=== PATIENT | male | born 1955 | race Caucasian/White ===

== ENCOUNTER 2018-06-21 09:59 | Inpatient (IN) ==
--- NOTE | 2018-06-21 12:34 | Pulmonology History & Physical ---
<Devyn Morton W - Last Filed: 06/21/18 14:27> Date of Encounter: 06/21/18 History of Present Illness HPI: Mr. Lubin is a 63 year old male Medications and Allergies Acetaminophen 650 mg PO Q6HR PRN 06/21/18 [History] Arformoterol Tartrate [Brovana] 15 mcg IH QSHIFT 06/21/18 [History] Ascorbate Calcium [Vitamin C] 500 mg PO DAILY 06/21/18 [History] Budesonide [Pulmicort] 4 ml IH QSHIFT 06/21/18 [History] Carvedilol 3.125 mg PO BID 06/21/18 [History] Citalopram Hydrobromide [Celexa] 20 mg PO DAILY 06/21/18 [History] Enoxaparin [Lovenox] 40 mg SQ DAILY 06/21/18 [History] Ferrous Sulfate Oral Soln 6.8 ml PO DAILY 06/21/18 [History] Insulin LISPRO [Admelog Solostar] 2 - 10 unit SQ Q6H 06/21/18 [History] Ipratropium/Albuterol Sulfate [Iprat-Albut 0.5-3(2.5) mg/3 ml] 3 ml IH Q6HR 06/21/18 [History] Lisinopril [Zestril] 5 mg PO DAILY 06/21/18 [History] Metformin HCl 500 mg PO BID 06/21/18 [History] Potassium Chloride [K-Tab ER] 20 meq PO DAILY 06/21/18 [History] Ranitidine Oral Soln [Zantac] 10 ml PO BID 06/21/18 [History] Soft Lens Saline Solution 0.9% 1 appl TP QSHIFT 06/21/18 [History] Zinc Sulfate 220 mg PO DAILY 06/21/18 [History] amLODIPine [Norvasc] 5 mg PO DAILY 06/21/18 [History] clonazePAM [Clonazepam] 1 mg PO BID 06/21/18 [History] predniSONE [PredniSONE] See Taper PO AD 06/21/18 [History] Allergy/AdvReac Type Severity Reaction Status Date / Time No Known Allergies Allergy Verified 06/21/18 07:48 All Systems: The remainder of the systems were reviewed and are negative Physical Examination Vital Signs: Vital Signs, Last 4 Hours Temp Pulse Pulse Ox 06/21/18 12:24 99.5 F 105 92 Results - Laboratory Findings ABG ABG pH 7.28 pH Units (7.32-7.45) L 06/21/18 13:53 ABG pCO2 81 mmHg (35-45) H* 06/21/18 13:53 ABG pO2 70 mmHg (85-104) L 06/21/18 13:53 ABG O2 Saturation 90 % (95-98) L 06/21/18 13:53 Abnormal lab findings: Abnormal lab results ABG pH 7.28 pH Units (7.32-7.45) L 06/21/18 13:53 ABG pCO2 81 mmHg (35-45) H* 06/21/18 13:53 ABG pO2 70 mmHg (85-104) L 06/21/18 13:53 ABG HCO3 38 mEq/L (21-27) H 06/21/18 13:53 ABG Total CO2 41 mEq/L (20-26) H 06/21/18 13:53 ABG O2 Saturation 90 % (95-98) L 06/21/18 13:53 ABG Base Excess 8 mEq/L (-2 to 3) H 06/21/18 13:53 - Attending Attestation I examined this patient and my medical decision-making was reviewed with the Resident Physician. I agree with the documented findings, disposition and treatment plan as described except to the extent set forth below. We independently had ayos-[id number] contact with the patient I spent 45min of Critical Care time with this patient. It involved decision making of high complexity to assess, manipulate, and support vital organ system failure and/or to prevent further life threatening deterioration of the patient's condition. The time involved in the performance of separately reportable procedures was not counted toward critical care time. Patient seen and examined at bedside Labs, radiology, chart personally reviewed. CONSOLIDATOR: Patient is awake and alert able to follow all commands no focal deficits Pulm: Acute on chronic hypoxic hypercapnic respiratory failure likely secondary to pneumonia and I suspect aspiration he also has steroid dependent COPD status post tracheostomy within the last month ABG shows worsening respiratory acidosis and ventilator was changed to increase minute ventilation I:E ratio remains acceptable of also increase PEEP and decreased his FiO2 peak and plateau pressures are acceptable at this time glucocorticoids of been administered continue bronchodilator therapy and antibiotics Cards: Hypotension likely secondary to distributive shock from sepsis versus adrenal crisis. Central venous catheter was inserted and vasopressors have been initiated for goal map around 65 he is on norepinephrine at the moment. Echocardiogram pending troponin within normal limits EKG shows sinus tachycardia without ischemic changes GI: GI prophylaxis given Nutrition: Nothing by mouth for now Renal: UOP Monitored, Cont to Trend sCr and monitor Electrolytes. ID: Speck to pneumonia cultures have been obtained antibiotics have been initiated for hospital associated pathogens de-escalate based upon clinical course and cultures Heme/Onc: DVT prophylaxis given Endo: Glucose Monitored Integ/MSK: Skin Care per routine ICU Nursing Protocol to prevent ulcers. Lines: All lines examined without evidence of infection : Dispo: Remain in ICU for critical illness CODE: Full code daughter was updated at bedside who is his next of kin/POA <Nighat Goldstein M - Last Filed: 06/21/18 16:04> Date of Encounter: 06/21/18 Time of Encounter: 12:20 Assessment and Plan (1) Acute and chronic respiratory failure Current visit: No Status: Acute Patient has severe COPD and is trach and vent dependent Had trach replaced with smaller size yesterday Acute on chronic respiratory failure likely due to pneumonia ABG with pH 7.28, pCO2 81, pO2 70, bicarb 38. Vent settings adjusted to PEEP 12, increased I:E ratio, decrease FiO2 Patient is on chronic steroids and will start Solu-Cortef 100mg TID Continue IV vancomycin and IV zosyn Scheduled duonebs Blood cultures, sputum culture, strep pneumonia and legionella Ag, respiratory i nfectious panel pending Qualifiers: Respiratory failure complication: hypoxia and hypercapnia Qualified Code(s): J96.21 - Acute and chronic respiratory failure with hypoxia; J96.22 - Acute and chronic respiratory failure with hypercapnia (2) Severe sepsis Current visit: Yes Status: Acute Tachycardia, tachypnea, leukocytosis Lactate normal, LFTs normal Sepsis likely secondary to pneumonia, unspecified organism Arrived to [facility] from [place] with hypotension, not fluid responsive Hypotension likely from severe sepsis versus possible adrenal crisis Right IJV central venous access obtained, levophed started. Keep MAP >65 Check TSH and cortisol Check blood cultures, sputum culture, respiratory infectious panel Continue with IV vancomycin and IV zosyn (3) Right lower lobe pneumonia Current visit: No Status: Acute CXR with right basilar airspace opacity and small right pleural effusion Sputum culture, RIP, urine Ag pending Daily ABG and adjust vent settings IV vncomycin and zosyn Qualifiers: Pneumonia type: due to unspecified organism Qualified Code(s): J18.1 - Lobar pneumonia, unspecified organism (4) COPD (chronic obstructive pulmonary disease) Current visit: Yes Status: Acute Severe COPD with chronic trach and vent dependence IV steroids and scheduled duonebs as above Qualifiers: COPD type: COPD with acute exacerbation Qualified Code(s): J44.1 - Chronic obstructive pulmonary disease with (acute) exacerbation (5) Elevated troponin Current visit: Yes Status: Acute Initial troponin <0.03 and repeat 0.06 EKG obtained and shows sinus tachycardia with frequent PVCs. SD interval 186, QRS 94, QT 303ms. No ST elevation or depression. Poor R wave progression Likely due to demand ischemia from acute respiratory failure and severe sepsis Trend troponin and check echocardiogram (6) Diabetes mellitus Current visit: Yes Status: Acute Patient is on metformin on home medications Will monitor glucose q6h and SSI NPO. Patient has history of dysphagia and required NG tube prior to admission. Received Pulmocare four times a day through NG tube Qualifiers: Diabetes mellitus type: type 2 Diabetes mellitus penitentiary insulin use: without penitentiary use Qualified Code(s): E11.9 - Type 2 diabetes mellitus without complications (7) Goals of care, counseling/discussion Current visit: Yes Status: Acute Discussed with patient and daughter at bedside. Patient is Full Code. Signed consent for central line placement and vasopressor support. (8) Hypertension Current visit: Yes Status: Acute Hold home medications as patient is hypotensive and NPO Qualifiers: Hypertension type: essential hypertension Qualified Code(s): I10 - Essential (primary) hypertension (9) DVT prophylaxis Current visit: Yes Status: Acute SQ heparin History of Present Illness Chief complaint: shortness of breath HPI: Mr. Lubin is a 63 year old male with past medical history including COPD, diabetes mellitus type 2, hypertension. Patient has chronic respiratory failure and has had multiple intubations in the past for COPD exacerbation. He recently received a tracheostomy approximately 2 months ago at [facility] and [place]. He is ventilator dependent. On chronic steroids. Recently finished azithromycin course. [facility]. Yesterday, the patient's tracheostomy tube was replaced with a smaller size. Patient's nasogastric tube, which was initially placed for dysphagia, was also removed as he had been pulling at it. Previously he was receiving Pulmocare 4 times a day. He had a couple episodes of nonbloody vomiting during the NG removal. Possible aspiration.History of was obtained from prior ED records as well as from the patient and his daughter at bedside. The patient states he was feeling more short of breath yesterday evening after the NG tube was removed. He denies cough or increased sputum production. He also complains of intermittent chest tightness with breathing. Since the NG tube removal, the patient complains of intermittent abdominal pain. He is still passing flatus. No change in bowel movements. Nonbloody bowel movements. Patient states shortness of breath progressively worsened. He was suctioned a few times throughout the day. Patient also complains of chills but no fevers. Denies sick contacts. No other changes in medications. His nursing facility called EMS to take him to the emergency department for further evaluation. At [place] emergency department, chest x-ray was obtained which showed a right lower lobe infiltrate concerning for pneumonia. There is a concern for possible aspiration as he finished NG tube feedings and his NG tube was removed. IV fluids were initiated as patient was sinus tachycardia. Sepsis workup was initiated. Patient received IV Rocephin and azithromycin. Vent settings were adjusted according to his ABG and he was placed on 80% FiO2 with PEEP of 8. Initial white blood count was 28,000 and lactate normal. Troponin normal. B lood pressures were normotensive and heart rate was improving. IV vancomycin and IV Zosyn were added and the patient was transferred to [facility] for admission to ICU. Discuss goals of care with patient and daughter at bedside. He is full code. Patient states he is feeling slightly better. However he is now hypotensive since arrival and remains tachycardic. He is receiving his second liter of IV fluid bolus. Will obtain repeat lab work, sepsis protocol. Discussed central line placement for vasopressor support with patient and daughter at bedside who are agreeable to plan of care. Past Med Surg Social Fam HX - Past Medical History Attestation: Yes The following information was validated with the patient. Source: patient, old records reviewed, obtained from family Medical history: COPD, diabetes, GERD, hypertension, other (Chronic respiratory failure, metabolic encephalopathy, morbid obesity, pickwickian syndrome) Additional medical history: RESPIRATORY FAILURE/TRACH/VENT DEPENDENT Psychiatric history: no psych history - Past Surgical History Surgical History: tracheostomy - Social History Smoking Status: Former smoker Alcohol use: none Drug use: none All Systems: The remainder of the systems were reviewed and are negative - Constitutional Constitutional: as per HPI, chills, no fever(s) - EENT Nose, mouth and throat: dysphagia, no headache(s) - Cardiovascular Cardiovascular: chest pain, no edema - Respiratory Respiratory: dyspnea, no cough - Gastrointestinal Gastrointestinal: abdominal pain, nausea, vomiting - Musculoskeletal Musculoskeletal: no muscle weakness - Neurological Neurological: no dizziness, no headache(s) Physical Examination Vital Signs: Vital Signs, Last 4 Hours Temp Pulse 06/21/18 12:24 99.5 F 105 General appearance: no acute distress, alert Eyes: nonicteric, other (normal conjunctiva, PERRL, EOMI) Effort: other (Diminished breath sounds with mild expiratory wheezing bilaterally without crackles or rales.) Cardiovascular: other (sinus tachycardia, normal rhythm) Gastrointestinal: soft, non-tender, non-distended Integumentary: other (warm, diaphoretic, normal color) Extremities: no cyanosis, other (bilateral radial pulses and dorsalis pedis pulses palpable and equal) Musculoskeletal: no deformities ( ) normal mental status, pupils equal and round, CN II-XII normal, motor strength normal and symmetric mood appropriate, affect normal Results - Laboratory Findings CBC and BMP: 06/21/18 13:45 06/21/18 13:45
[2018-06-21] MEDS: Norepinephrine 4 MG in D5% in Water 250 ML IVC SCH ×2 (12:53→19:45)
[2018-06-21] MEDS ORDERED: *HR* Midazolam HCl 2 MG/2 ML VIAL ONE ×2 (12:58→13:02)
[2018-06-21] MEDS ORDERED: *HR* Midazolam HCl 2 MG/2 ML VIAL IVP PRN (13:02)
--- NOTE | 2018-06-21 13:39 | Procedure Note ---
<Nighat Goldstein M - Last Filed: 06/21/18 13:54> Date of procedure: 06/21/18 Procedure: Central Venous Catheter (CVC, Central Line) Placement Date: 06/21/18 Time: 13:20 Indication: Hemodynamic monitoring/Intravenous access Resident: Dr. Goldstein Attending: Dr. Morton Patient arrived with respiratory failure, tach dependent, on mechanical ventilation, and sepsis likely secondary to pneumonia. Patient was hypotensive upon arrival, not fluid responsive. Discussed central line placement with ebony ent and his daughter at bedside. They are agreeable and signed consent was obtained. A time-out was completed verifying correct patient, procedure, site, positioning, and special equipment if applicable. The patient was placed in a dependent position appropriate for central line placement based on the vein to be cannulated. The patients right neck was prepped and draped in sterile fashion. 1% Lidocaine was used to anesthetize the surrounding skin area. A triple lumen 7 [place] Cordis catheter was introduced into the the internal jungular vein using the Seldinger technique and under ultrasound guidance. The catheter was threaded smoothly over the guide wire and appropriate blood return was obtained. Each lumen of the catheter was evacuated of air and flushed with sterile saline. The catheter was then sutured in place to the skin and a sterile dressing applied. Perfusion to the extremity distal to the point of catheter insertion was checked and found to be adequate. Post procedure xray was obtained to verify the location of the central line. No pneumothorax was seen. Dr. Morton, Attending Physician, was present for the entire procedure. The patient tolerated the procedure well and there were no complications. Was there an purchasing assistant present: Yes Chief Security Officer: Devyn Morton Estimated blood loss (cc): 5 Specimen: none <Devyn Morton - Last Filed: 06/21/18 14:35> - Attending Attestation I examined this patient and my medical decision-making was reviewed with the Resident Physician. I agree with the documented findings, disposition and treatment plan as described except to the extent set forth below. We independen tly had [id number] contact with the patient I supervised Dr. Goldstein performing the central venous catheter insertion which was done skillfully I was present for the entire procedure
[2018-06-21] MEDS ORDERED: Naloxone 0.4 MG/ML INJ IVP PRN (13:40)
[2018-06-21] MEDS ORDERED: D5% in Water 1,000 ML IVC PRN (13:49)
[2018-06-21] MEDS ORDERED: Dextrose Gel 15 GM/37.5 ML TUBE PO PRN ×2 (13:49)
[2018-06-21] MEDS ORDERED: *HR* Dextrose 50 % in Water (Syg) 50 ML SYRINGE IVP PRN (13:49)
[2018-06-21] MEDS ORDERED: Artificial Tears SOLN 15 ML BOTTLE BOTH EYES PRN (13:52)
[2018-06-21 13:58] LABS: ABG Base Excess 8 mEq/L (-2 to 3); ABG HCO3 38 mEq/L (21-27); ABG Oxygen Saturation 90 % (95-98); ABG PCO2 81 mmHg (35-45); ABG PH 7.28 pH Units (7.32-7.45); ABG PO2 70 mmHg (85-104); ABG TCO2 41 mEq/L (20-26); Blood Gas Modality AF; Blood Gas PEEP 10 cm H2O; Blood Gas Respiration Rate 16; Blood Gas VT 500 cc
[2018-06-21] MEDS ORDERED: Vancomycin (wt based) 1,000 MG VIAL IVPB SCH (14:00)
[2018-06-21 14:18] LABS: Mean Corpuscular Hemoglobin 28.7 pg (28.0-33.3); Mean Platelet Volume 10.5 fL (9.4-12.4)
[2018-06-21] MEDS ORDERED: Perflutren Lipid Microsphere 1.3 ML in 0.9 % Sodium Chloride 8.7 ML IVP ONE (14:18)
[2018-06-21 14:20] LABS: Hematocrit 37.9 % (37.5-50.1); Hemoglobin 11.5 g/dL (12.9-16.9); Mean Corpuscular HGB Conc 30.3 g/dL (31.6-35.5); Mean Corpuscular Volume 94.5 fL (83.0-100.0); Platelet Count 360 K/mcL (140-400); Red Blood Count 4.01 M/mcL (4.19-5.50); Red Cell Distribution Width 14.6 % (11.5-14.5)
[2018-06-21 14:37] LABS: Albumin/Globulin Ratio 1.4 (1.1-2.2); Bilirubin,Direct 0.1 mg/dL (0.0-0.2); Bilirubin,Indirect 0.3 mg/dL (0.0-1.2); Bilirubin,Total 0.4 mg/dL (0.3-1.0); Globulin 2.1 g/dL (2.4-3.5); Total Protein 5.1 g/dL (6.4-8.9)
[2018-06-21 14:39] LABS: BUN/Creatinine Ratio 17 (6-26); Blood Urea Nitrogen 23 mg/dL (8-23); Calcium 8.6 mg/dL (8.6-10.3); Carbon Dioxide 36 mEq/L (23-29); Chloride 99 mEq/L (98-107); Glucose 239 mg/dL (70-105); Magnesium 1.5 mg/dL (1.6-2.6); Osmolality,Calculated 305 (280-300); Phosphorous 4.4 mg/dL (2.7-4.5); Potassium 4.4 mEq/L (3.5-5.1); Sodium 142 mEq/L (136-145); eGFR For Non-African Americans 54 (> 60)
[2018-06-21 14:46] LABS: Troponin I 0.06 ng/mL (< 0.04)
[2018-06-21] MEDS: *HR* Heparin 5,000 UNIT/ML VIAL SQ SCH ×2 (15:09→21:10)
[2018-06-21] MEDS: Hydrocortisone Sodium Succ 100 MG/2 ML VIAL IVP SCH (15:09)
[2018-06-21] MEDS: Piperacillin/Tazobactam 3.375 GM in 0.9 % Sodium Chloride Mini Bag 100 ML IVPB SCH (15:10)
[2018-06-21] MEDS: Artificial Tears SOLN 15 ML BOTTLE BOTH EYES SCH ×2 (15:11→21:09)
[2018-06-21 15:28] LABS: Lymphocytes # 2.7 K/mcL (0.6-4.6); Monocytes # 2.7 K/mcL (0.0-1.3); Neutrophils # 28.5 K/mcL (1.6-8.9)
[2018-06-21 15:29] LABS: Platelet Estimate Normal (Normal)
[2018-06-21] MEDS: Dexmedetomidine HCl 400 MCG/100 ML MLS IVC SCH (15:43)
[2018-06-21] MEDS: Ipratropium/Albuterol Neb 3 ML IH SCH ×2 (15:49→19:34)
[2018-06-21 16:02] LABS: Thyroid Stimulating Hormone 1.935 mcIU/mL (0.340-5.600)
[2018-06-21] MEDS: Insulin LISPRO 300 UNITS/3 ML VIAL SQ SCH (17:32)
[2018-06-21] MEDS: Chlorhexidine Rinse 15 ML MOUTHWASH MM SCH (21:10)
[2018-06-21 23:05] LABS: Adenovirus Not Detected (Not Detect); Bordetella Pertussis Not Detected (Not Detect); Chlamydophila pneumoniae Not Detected (Not Detect); Coronavirus 229E Not Detected (Not Detect); Coronavirus HKU1 Not Detected (Not Detect); Coronavirus NL63 Not Detected (Not Detect); Coronavirus OC43 Not Detected (Not Detect); Human Metapneumovirus Not Detected (Not Detect); Human Rhinovirus/Enterovirus Not Detected (Not Detect); Influenza A Subtype 2009 H1 Not Detected (Not Detect); Influenza A Untypeable Not Detected (Not Detect); Influenza B Not Detected (Not Detect); Mycoplasma pneumoniae Not Detected (Not Detect); Parainfluenza Virus 1 Not Detected (Not Detect); Parainfluenza Virus 2 Not Detected (Not Detect); Parainfluenza Virus 3 Not Detected (Not Detect); Parainfluenza Virus 4 Not Detected (Not Detect); Respiratory Syncytial Virus Not Detected (Not Detect)
[2018-06-22] MEDS: Ipratropium/Albuterol Neb 3 ML IH SCH ×7 (00:11→23:31)
[2018-06-22] MEDS: Hydrocortisone Sodium Succ 100 MG/2 ML VIAL IVP SCH ×4 (00:16→23:59)
[2018-06-22] MEDS: Piperacillin/Tazobactam 3.375 GM in 0.9 % Sodium Chloride Mini Bag 100 ML IVPB SCH ×4 (00:18→23:58)
[2018-06-22] MEDS: Artificial Tears SOLN 15 ML BOTTLE BOTH EYES SCH ×7 (00:19→23:59)
[2018-06-22] MEDS: Insulin LISPRO 300 UNITS/3 ML VIAL SQ SCH ×4 (00:23→18:16)
[2018-06-22 04:51] LABS: Basophils % 0.1 %; Hematocrit 34.4 % (37.5-50.1); Hemoglobin 10.6 g/dL (12.9-16.9); Immature Granulocytes % 0.6 % (0-4); Lymphocytes % 4.6 %; Mean Corpuscular HGB Conc 30.8 g/dL (31.6-35.5); Mean Corpuscular Hemoglobin 28.3 pg (28.0-33.3); Mean Corpuscular Volume 91.7 fL (83.0-100.0); Mean Platelet Volume 10.1 fL (9.4-12.4); Monocytes # 1.3 K/mcL (0.0-1.3); Monocytes % 5.9 %; Neutrophils # 19.1 K/mcL (1.6-8.9); Platelet Count 282 K/mcL (140-400); Red Blood Count 3.75 M/mcL (4.19-5.50); Red Cell Distribution Width 14.6 % (11.5-14.5); Segmented Neutrophils % 88.8 %
[2018-06-22 05:07] LABS: Calcium 8.9 mg/dL (8.6-10.3); Magnesium 1.6 mg/dL (1.6-2.6); Phosphorous 4.6 mg/dL (2.7-4.5)
[2018-06-22 05:13] LABS: ABG Base Excess 7 mEq/L (-2 to 3); ABG HCO3 36 mEq/L (21-27); ABG Oxygen Saturation 93 % (95-98); ABG PCO2 69 mmHg (35-45); ABG PH 7.32 pH Units (7.32-7.45); ABG PO2 75 mmHg (85-104); ABG TCO2 38 mEq/L (20-26); Blood Gas Modality ASSIST CONTROL; Blood Gas PEEP 10 cm H2O; Blood Gas Respiration Rate 16; Blood Gas VT 603 cc
[2018-06-22] MEDS: *HR* Heparin 5,000 UNIT/ML VIAL SQ SCH ×3 (05:26→20:28)
--- NOTE | 2018-06-22 06:38 | Pulmonology Progress Note ---
Date of Encounter: 06/22/18 Time of Encounter: 06:38 Assessment and Plan (1) Acute on chronic respiratory failure with hypoxia and hypercapnia Current Visit: Yes Status: Acute Status post chronic trach Acceptable gas exchange today Continue CPAP during the day and assist control mode at night Bronchopulmonary hygiene Surgical evaluation for PEG tube placement at patient's request (2) Right lower lobe pneumonia Current Visit: No Status: Acute He is at risk for hospital associated organisms as well as aspiration given recent vomiting White count trending down 10 you vancomycin and Zosyn today pending cultures Qualifiers: Pneumonia type: due to unspecified organism Qualified Code(s): J18.1 - Lobar pneumonia, unspecified organism (3) Septic shock Current Visit: Yes Status: Acute This is resolving he is on 2 g of norepinephrine (4) COPD exacerbation Current Visit: Yes Status: Acute Continue IV glucocorticoids Schedule bronchodilators Symbicort (5) Adrenal insufficiency Current Visit: Yes Status: Acute Stress dose hydrocortisone given and patient is responding continue higher dose of Solu-Cortef today and will de-escalate over the next 48 hours (6) Diabetes mellitus Current Visit: Yes Status: Acute Continue to monitor glucose continue bolus dosing insulin increase intensity Qualifiers: Diabetes mellitus type: type 2 Diabetes mellitus keno terminal operator insulin use: without keno terminal operator use Qualified Code(s): E11.9 - Type 2 diabetes mellitus without complications (7) LUNA (acute kidney injury) Current Visit: Yes Status: Acute Likely secondary to prerenal azotemia versus ATN from sepsis Continue renal protective strategy Check CPK Renal ultrasound Urine output monitored via Freitas catheter continue to trend serum creatinine and electrolytes including potassium Fluid resuscitation (8) DVT prophylaxis Current Visit: Yes Status: Acute Continue heparin continue to monitor platelets and hemoglobin Subjective Principal diagnosis: Pneumonia Interval history: Patient has improved in the last 24 hours vasopressor is being weaned off and he is back on CPAP. He denies any complaints today Objective PUL Vital signs: Last Vital Signs Temp 96.8 F L 06/22/18 04:00 Pulse 97 06/22/18 06:00 Resp 20 06/22/18 06:00 BP 85/48 06/22/18 06:00 Pulse Ox 94 06/22/18 06:00 General appearance: no acute distress Eyes: nonicteric ENT: oropharynx moist, other (Trach site without evidence of exudate or erythema) Effort: normal Auscultation: bilateral: rales, rhonchi (Scattered) Cardiovascular: regular rate and rhythm Gastrointestinal: soft, non-tender Integumentary: other (Scattered areas of bruising over the abdomen) Extremities: no edema, no clubbing, pink and warm Musculoskeletal: no deformities normal mental status, non-focal exam, pupils equal and round mood appropriate Ventilator Settings Ventilator Settings: Ventilator Settings, Last 8 Hours Ventilator Tidal Volume 500 Setting Ventilator Tidal Volume 500 Setting Ventilator Tidal Volume 500 Setting Ventilator Tidal Volume 500 Setting Ventilator Tidal Volume 500 Setting Ventilator Tidal Volume 500 Setting Ventilator Tidal Volume 500 Setting Ventilator Tidal Volume 500 Setting Ventilator Tidal Volume 500 Setting Ventilator Tidal Volume 500 Setting Ventilator Tidal Volume 500 Setting Ventilator Tidal Volume 500 Setting Ventilator Tidal Volume 500 Setting Ventilator Tidal Volume 500 Setting Ventilator Respiratory Rate 16 Setting Ventilator Respiratory Rate 16 Setting Ventilator Respiratory Rate 16 Setting Ventilator Respiratory Rate 16 Setting Ventilator Respiratory Rate 16 Setting Ventilator Respiratory Rate 16 Setting Ventilator Respiratory Rate 16 Setting Ventilator Respiratory Rate 16 Setting Ventilator Respiratory Rate 16 Setting Ventilator Respiratory Rate 16 Setting Ventilator Respiratory Rate 16 Setting Ventilator Respiratory Rate 16 Setting Ventilator Respiratory Rate 16 Setting Ventilator Respiratory Rate 16 Setting Actual Respiratory Rate 20 Actual Respiratory Rate 19 Actual Respiratory Rate 20 Actual Respiratory Rate 20 Actual Respiratory Rate 17 Actual Respiratory Rate 20 Actual Respiratory Rate 16 Actual Respiratory Rate 17 Actual Respiratory Rate 16 Actual Respiratory Rate 19 Actual Respiratory Rate 16 Actual Respiratory Rate 18 Actual Respiratory Rate 18 Positive End Expiratory 10 Pressure Positive End Expiratory 10 Pressure Positive End Expiratory 10 Pressure Positive End Expiratory 10 Pressure Positive End Expiratory 10 Pressure Positive End Expiratory 10 Pressure Positive End Expiratory 10 Pressure Positive End Expiratory 10 Pressure Positive End Expiratory 10 Pressure Positive End Expiratory 10 Pressure Positive End Expiratory 10 Pressure Positive End Expiratory 10 Pressure Positive End Expiratory 10 Pressure Positive End Expiratory 10 Pressure Peak Inspiratory Airway 12 Pressure Peak Inspiratory Airway 10 Pressure Peak Inspiratory Airway 10 Pressure Peak Inspiratory Airway 10 Pressure Peak Inspiratory Airway 15 Pressure Peak Inspiratory Airway 30 Pressure Peak Inspiratory Airway 31 Pressure Peak Inspiratory Airway 33 Pressure Peak Inspiratory Airway 34 Pressure Peak Inspiratory Airway 26 Pressure Peak Inspiratory Airway 32 Pressure Peak Inspiratory Airway 19 Pressure Peak Inspiratory Airway 19 Pressure Results - Laboratory Findings CBC and BMP: 06/22/18 04:35 06/22/18 04:35 ABG ABG pH 7.32 pH Units (7.32-7.45) 06/22/18 05:10 ABG pCO2 69 mmHg (35-45) H 06/22/18 05:10 ABG pO2 75 mmHg (85-104) L 06/22/18 05:10 ABG O2 Saturation 93 % (95-98) L 06/22/18 05:10 Abnormal lab findings: Abnormal lab results WBC 21.5 K/mcL (4.3-11.1) H 06/22/18 04:35 RBC 3.75 M/mcL (4.19-5.50) L 06/22/18 04:35 Hgb 10.6 g/dL (12.9-16.9) L 06/22/18 04:35 Hct 34.4 % (37.5-50.1) L 06/22/18 04:35 MCHC 30.8 g/dL (31.6-35.5) L 06/22/18 04:35 RDW 14.6 % (11.5-14.5) H 06/22/18 04:35 Band Neutrophils % 16.0 % (0-4) H 06/21/18 13:45 Neutrophils # 19.1 K/mcL (1.6-8.9) H 06/22/18 04:35 ABG pCO2 69 mmHg (35-45) H 06/22/18 05:10 ABG pO2 75 mmHg (85-104) L 06/22/18 05:10 ABG HCO3 36 mEq/L (21-27) H 06/22/18 05:10 ABG Total CO2 38 mEq/L (20-26) H 06/22/18 05:10 ABG O2 Saturation 93 % (95-98) L 06/22/18 05:10 ABG Base Excess 7 mEq/L (-2 to 3) H 06/22/18 05:10 Carbon Dioxide 34 mEq/L (23-29) H 06/22/18 04:35 BUN 36 mg/dL (8-23) H 06/22/18 04:35 Creatinine 1.94 mg/dL (0.70-1.30) H 06/22/18 04:35 Est GFR ( Amer) 42 (> 60) L 06/22/18 04:35 Est GFR (Non-Af Amer) 35 (> 60) L 06/22/18 04:35 Glucose 237 mg/dL (70-105) H 06/22/18 04:35 POC Glucose 209 mg/dL (70-99) H 06/22/18 05:26 Calculated Osmolality 308 (280-300) H 06/22/18 04:35 Lactic Acid 2.9 mmol/L (0.5-2.2) H 06/21/18 20:25 Phosphorus 4.6 mg/dL (2.7-4.5) H 06/22/18 04:35 AST 9 Units/L (13-39) L 06/21/18 13:45 Troponin I 0.05 ng/mL (< 0.04) H* 06/21/18 20:25 Serum Total Protein 5.1 g/dL (6.4-8.9) L 06/21/18 13:45 Albumin 3.0 g/dL (3.5-5.7) L 06/21/18 13:45 Globulin 2.1 g/dL (2.4-3.5) L 06/21/18 13:45 - Microbiology Findings Microbiology Findings: Microbiology, Last 48 Hours 06/21/18 21:20 Legionella Antigen - Final Urine,Clean Catch Streptococcus pneumoniae Antigen (M - Final 06/21/18 13:52 Blood Culture - Preliminary Peripheral Venipuncture Culture is incubating and being continuously monitored for growth. Final report to follow. 06/21/18 13:55 Blood Culture - Preliminary Peripheral Venipuncture Culture is incubating and being continuously monitored for growth. Final report to follow. - Diagnostic Findings Chest x-ray: report reviewed, image reviewed - Clinical Findings Intake & Output: Intake & Output 06/21/18 06/21/18 06/22/18 15:59 23:59 07:59 Intake Total 100 / 100 299 / 299 287 / 287 Output Total 25 / 25 50 / 50 Balance 100 / 100 274 / 274 237 / 237 Weight 100.4 kg 91.9 kg Consult Discharge Plan - Plan Referrals: Zachery Regalado MD [Primary Care Provider] -
[2018-06-22] MEDS ORDERED: Ringers Solution, Lactated 1,000 ML IVC ONE (06:43)
[2018-06-22] MEDS: Chlorhexidine Rinse 15 ML MOUTHWASH MM SCH ×2 (08:16→20:27)
[2018-06-22] MEDS: Pantoprazole 40 MG VIAL IVP SCH (08:16)
[2018-06-22] MEDS: Dexmedetomidine HCl 400 MCG/100 ML MLS IVC SCH ×2 (08:28→11:04)
[2018-06-22] MEDS ORDERED: Aminoglycoside Consult 1 EACH MC ONE (08:47)
[2018-06-22 13:12] LABS: Calcium 8.9 mg/dL (8.6-10.3); Potassium 4.1 mEq/L (3.5-5.1)
[2018-06-22 22:53] LABS: Basophils % 0.1 %; Hematocrit 30.9 % (37.5-50.1); Hemoglobin 9.6 g/dL (12.9-16.9); Lymphocytes # 0.7 K/mcL (0.6-4.6); Lymphocytes % 4.3 %; Mean Corpuscular HGB Conc 31.1 g/dL (31.6-35.5); Mean Corpuscular Volume 93.4 fL (83.0-100.0); Mean Platelet Volume 10.6 fL (9.4-12.4); Monocytes # 1.1 K/mcL (0.0-1.3); Monocytes % 6.1 %; Neutrophils # 15.3 K/mcL (1.6-8.9); Platelet Count 257 K/mcL (140-400); Red Blood Count 3.31 M/mcL (4.19-5.50); Red Cell Distribution Width 14.7 % (11.5-14.5); Segmented Neutrophils % 88.5 %
[2018-06-22 23:14] LABS: Calcium 8.6 mg/dL (8.6-10.3); Potassium 4.1 mEq/L (3.5-5.1)
[2018-06-23] MEDS ORDERED: Saline Nasal Spray 44 ML BOTTLE NS PRN ×2 (00:24→14:13)
[2018-06-23] MEDS: Insulin LISPRO 300 UNITS/3 ML VIAL SQ SCH ×4 (00:32→20:49)
[2018-06-23] MEDS: Ipratropium/Albuterol Neb 3 ML IH SCH ×5 (03:13→20:39)
[2018-06-23 04:22] LABS: Basophils % 0.1 %; Hematocrit 30.8 % (37.5-50.1); Hemoglobin 9.5 g/dL (12.9-16.9); Lymphocytes # 0.7 K/mcL (0.6-4.6); Lymphocytes % 3.8 %; Mean Corpuscular HGB Conc 30.8 g/dL (31.6-35.5); Mean Corpuscular Hemoglobin 28.6 pg (28.0-33.3); Mean Corpuscular Volume 92.8 fL (83.0-100.0); Mean Platelet Volume 10.5 fL (9.4-12.4); Monocytes % 5.8 %; Neutrophils # 15.4 K/mcL (1.6-8.9); Platelet Count 265 K/mcL (140-400); Red Blood Count 3.32 M/mcL (4.19-5.50); Red Cell Distribution Width 14.9 % (11.5-14.5); Segmented Neutrophils % 89.3 %
[2018-06-23 04:40] LABS: Calcium 8.7 mg/dL (8.6-10.3); Magnesium 2.1 mg/dL (1.6-2.6)
[2018-06-23] MEDS: *HR* Heparin 5,000 UNIT/ML VIAL SQ SCH ×3 (05:03→21:23)
[2018-06-23] MEDS: Artificial Tears SOLN 15 ML BOTTLE BOTH EYES SCH ×5 (05:03→21:27)
[2018-06-23] MEDS: Dexmedetomidine HCl 400 MCG/100 ML MLS IVC SCH ×3 (05:07→18:54)
[2018-06-23 05:16] LABS: ABG Base Excess 10 mEq/L (-2 to 3); ABG HCO3 36 mEq/L (21-27); ABG Oxygen Saturation 94 % (95-98); ABG PCO2 58 mmHg (35-45); ABG PH 7.41 pH Units (7.32-7.45); ABG PO2 74 mmHg (85-104); ABG TCO2 38 mEq/L (20-26); Blood Gas Modality ASSIST CONTROL; Blood Gas Pressure Support 8 cm H2O; Blood Gas Respiration Rate 16; Blood Gas VT 513 cc
[2018-06-23] MEDS: Piperacillin/Tazobactam 3.375 GM in 0.9 % Sodium Chloride Mini Bag 100 ML IVPB SCH ×2 (06:17→14:53)
--- NOTE | 2018-06-23 06:41 | Pulmonology Progress Note ---
Date of Encounter: 06/23/18 Time of Encounter: 06:41 Assessment and Plan (1) Acute on chronic respiratory failure with hypoxia and hypercapnia Current Visit: Yes Status: Acute Status post chronic trach Acceptable oxygenation today Trach during the day and CPAP mode at night x 24 hours then can likely tolerate trach mask thereafter Bronchopulmonary hygiene Surgical evaluation for PEG tube placement at patient's request (2) Right lower lobe pneumonia Current Visit: No Status: Acute He is at risk for hospital associated organisms as well as aspiration given recent vomiting White count trending down stop Vanc cont Zosyn today pending cultures Qualifiers: Pneumonia type: due to unspecified organism Qualified Code(s): J18.1 - Lobar pneumonia, unspecified organism (3) Septic shock Current Visit: Yes Status: Acute Resolved (4) COPD exacerbation Current Visit: Yes Status: Acute Continue IV glucocorticoids Schedule bronchodilators Symbicort (5) Adrenal insufficiency Current Visit: Yes Status: Acute Stress dose hydrocortisone given decreased dose to 50 TID can likely transition to Solumedrol tomorrow to complete 2 week taper back down to home dose of 20mg (6) Diabetes mellitus Current Visit: Yes Status: Acute Continue to monitor - remains hyperglycemic continue bolus dosing insulin =>increase intensity Qualifiers: Diabetes mellitus type: type 2 Diabetes mellitus chcf insulin use: without superintendent terminal use Qualified Code(s): E11.9 - Type 2 diabetes mellitus without complications (7) LUNA (acute kidney injury) Current Visit: Yes Status: Acute Likely secondary to prerenal azotemia versus ATN from sepsis Continue renal protective strategy CPK normal Renal ultrasound normal Urine output monitored via Freitas catheter continue to trend serum creatinine and electrolytes including potassium Fluid Challenge today Consider Nephro consult 24 hours if no improvement Stable for transfer to [facility] for ongoing care (8) DVT prophylaxis Current Visit: Yes Status: Acute Continue heparin continue to monitor platelets and hemoglobin Subjective Principal diagnosis: Pneumonia Interval history: Patient continues to improve. Hemodynamically stable off vasopressor. Urine output remains middling. Objective PUL Vital signs: Last Vital Signs Temp 97.5 F L 06/23/18 04:00 Pulse 89 06/23/18 06:00 Resp 20 06/23/18 06:00 BP 135/75 06/23/18 06:00 Pulse Ox 95 06/23/18 06:00 General appearance: no acute distress Eyes: nonicteric ENT: other (Trach site noted clean dry and intact) Neck: supple, no JVD Effort: normal Auscultation: bilateral: rhonchi Cardiovascular: regular rate and rhythm Gastrointestinal: normoactive bowel sounds, soft, non-tender Integumentary: other (Stable abdominal bruising noted ) Extremities: edema Musculoskeletal: no deformities normal mental status, non-focal exam, pupils equal and round mood appropriate Ventilator Settings Ventilator Settings: Ventilator Settings, Last 8 Hours Ventilator Tidal Volume 500 Setting Ventilator Tidal Volume 500 Setting Ventilator Tidal Volume 500 Setting Ventilator Tidal Volume 500 Setting Ventilator Tidal Volume 500 Setting Ventilator Tidal Volume 500 Setting Ventilator Tidal Volume 500 Setting Ventilator Tidal Volume 500 Setting Ventilator Tidal Volume 500 Setting Ventilator Tidal Volume 500 Setting Ventilator Tidal Volume 500 Setting Ventilator Tidal Volume 500 Setting Ventilator Tidal Volume 500 Setting Ventilator Respiratory Rate 16 Setting Ventilator Respiratory Rate 16 Setting Ventilator Respiratory Rate 16 Setting Ventilator Respiratory Rate 16 Setting Ventilator Respiratory Rate 16 Setting Ventilator Respiratory Rate 16 Setting Ventilator Respiratory Rate 16 Setting Ventilator Respiratory Rate 16 Setting Ventilator Respiratory Rate 16 Setting Ventilator Respiratory Rate 16 Setting Ventilator Respiratory Rate 16 Setting Ventilator Respiratory Rate 16 Setting Ventilator Respiratory Rate 16 Setting Actual Respiratory Rate 20 Actual Respiratory Rate 16 Actual Respiratory Rate 20 Actual Respiratory Rate 20 Actual Respiratory Rate 25 Actual Respiratory Rate 20 Actual Respiratory Rate 20 Actual Respiratory Rate 26 Actual Respiratory Rate 24 Actual Respiratory Rate 20 Actual Respiratory Rate 24 Actual Respiratory Rate 18 Positive End Expiratory 8 Pressure Positive End Expiratory 8 Pressure Positive End Expiratory 8 Pressure Positive End Expiratory 8 Pressure Positive End Expiratory 8 Pressure Positive End Expiratory 8 Pressure Positive End Expiratory 8 Pressure Positive End Expiratory 8 Pressure Positive End Expiratory 8 Pressure Positive End Expiratory 8 Pressure Positive End Expiratory 8 Pressure Positive End Expiratory 8 Pressure Positive End Expiratory 8 Pressure Peak Inspiratory Airway 8 Pressure Peak Inspiratory Airway 13 Pressure Peak Inspiratory Airway 8 Pressure Peak Inspiratory Airway 8 Pressure Peak Inspiratory Airway 12 Pressure Peak Inspiratory Airway 8 Pressure Peak Inspiratory Airway 8 Pressure Peak Inspiratory Airway 7.8 Pressure Peak Inspiratory Airway 8 Pressure Peak Inspiratory Airway 10 Pressure Peak Inspiratory Airway 12 Pressure Peak Inspiratory Airway 27 Pressure Results - Laboratory Findings CBC and BMP: 06/23/18 04:00 06/23/18 04:00 ABG ABG pH 7.41 pH Units (7.32-7.45) 06/23/18 05:13 ABG pCO2 58 mmHg (35-45) H 06/23/18 05:13 ABG pO2 74 mmHg (85-104) L 06/23/18 05:13 ABG O2 Saturation 94 % (95-98) L 06/23/18 05:13 Abnormal lab findings: Abnormal lab results WBC 17.3 K/mcL (4.3-11.1) H 06/23/18 04:00 RBC 3.32 M/mcL (4.19-5.50) L 06/23/18 04:00 Hgb 9.5 g/dL (12.9-16.9) L 06/23/18 04:00 Hct 30.8 % (37.5-50.1) L 06/23/18 04:00 MCHC 30.8 g/dL (31.6-35.5) L 06/23/18 04:00 RDW 14.9 % (11.5-14.5) H 06/23/18 04:00 Band Neutrophils % 16.0 % (0-4) H 06/21/18 13:45 Neutrophils # 15.4 K/mcL (1.6-8.9) H 06/23/18 04:00 ABG pCO2 58 mmHg (35-45) H 06/23/18 05:13 ABG pO2 74 mmHg (85-104) L 06/23/18 05:13 ABG HCO3 36 mEq/L (21-27) H 06/23/18 05:13 ABG Total CO2 38 mEq/L (20-26) H 06/23/18 05:13 ABG O2 Saturation 94 % (95-98) L 06/23/18 05:13 ABG Base Excess 10 mEq/L (-2 to 3) H 06/23/18 05:13 Carbon Dioxide 31 mEq/L (23-29) H 06/23/18 04:00 BUN 44 mg/dL (8-23) H 06/23/18 04:00 Creatinine 2.65 mg/dL (0.70-1.30) H 06/23/18 04:00 Est GFR ( Amer) 30 (> 60) L 06/23/18 04:00 Est GFR (Non-Af Amer) 24 (> 60) L 06/23/18 04:00 Glucose 110 mg/dL (70-105) H 06/23/18 04:00 POC Glucose 111 mg/dL (70-99) H 06/23/18 05:06 Calculated Osmolality 302 (280-300) H 06/23/18 04:00 Phosphorus 4.6 mg/dL (2.7-4.5) H 06/22/18 04:35 AST 9 Units/L (13-39) L 06/21/18 13:45 Creatine Kinase 14 Units/L (30-223) L 06/22/18 12:36 Troponin I 0.05 ng/mL (< 0.04) H* 06/21/18 20:25 Serum Total Protein 5.1 g/dL (6.4-8.9) L 06/21/18 13:45 Albumin 3.0 g/dL (3.5-5.7) L 06/21/18 13:45 Globulin 2.1 g/dL (2.4-3.5) L 06/21/18 13:45 - Microbiology Findings Microbiology Findings: Microbiology, Last 48 Hours 06/21/18 21:20 Legionella Antigen - Final Urine,Clean Catch Streptococcus pneumoniae Antigen (M - Final 06/21/18 13:52 Blood Culture - Preliminary Peripheral Venipuncture Culture is incubating and being continuously monitored for growth. Final report to follow. 06/21/18 13:55 Blood Culture - Preliminary Peripheral Venipuncture Culture is incubating and being continuously monitored for growth. Final report to follow. - Diagnostic Findings Chest x-ray: report reviewed, image reviewed - Clinical Findings Intake & Output: Intake & Output 06/22/18 06/22/18 06/23/18 15:59 23:59 07:59 Intake Total 1604 / 1604 142 / 142 200 / 200 Output Total 125 / 125 50 / 50 150 / 150 Balance 1479 / 1479 92 / 92 50 / 50 Weight 99 kg Consult Discharge Plan - Plan Referrals: Zachery Regalado MD [Primary Care Provider] -
[2018-06-23] MEDS ORDERED: Hydrocortisone Sodium Succ 100 MG/2 ML VIAL IVP SCH (08:00)
[2018-06-23] MEDS: Pantoprazole 40 MG VIAL IVP SCH (08:34)
[2018-06-23] MEDS: Chlorhexidine Rinse 15 ML MOUTHWASH MM SCH ×2 (08:34→21:23)
--- NOTE | 2018-06-23 08:35 | Electrocardiograph Report ---
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
[2018-06-23] MEDS ORDERED: Ringers Solution, Lactated 1,000 ML IVC ONE (10:22)
[2018-06-23] MEDS: Norepinephrine 4 MG in D5% in Water 250 ML IVC SCH (13:37)
[2018-06-23] MEDS ORDERED: *HR* Midazolam HCl 2 MG/2 ML VIAL IVP PRN (14:13)
[2018-06-23] MEDS ORDERED: D5% in Water 1,000 ML IVC PRN ×2 (14:13→17:15)
[2018-06-23] MEDS ORDERED: *HR* Dextrose 50 % in Water (Syg) 50 ML SYRINGE IVP PRN ×2 (14:13→17:15)
[2018-06-23] MEDS ORDERED: Naloxone 0.4 MG/ML INJ IVP PRN (14:13)
[2018-06-23] MEDS ORDERED: Dextrose Gel 15 GM/37.5 ML TUBE PO PRN ×4 (14:13→17:15)
[2018-06-23] MEDS ORDERED: *HR* Heparin 5,000 UNIT/ML VIAL ONE (14:48)
[2018-06-23] MEDS: Hydrocortisone Sodium Succ 100 MG/2 ML VIAL IVP SCH (16:02)
--- NOTE | 2018-06-23 16:52 | AcuteCare Surgery Consult Note ---
Date of Encounter: 06/23/18 Time of Encounter: 16:50 Assessment and Plan (1) Dysphagia Current Visit: Yes Status: Acute Recommend EGD/PEG. Procedure, risks and benefits d/w pt. Possible complications include but, are not limited to bleeding infection, gastric or bowel perforation or sedation complication. Pt understands possible risk and indications. He wishes to proceed as advised. Will proceed with EGD/PEG in ICU. Consent obtained. Qualifiers: Qualified Code(s): R13.10 - Dysphagia, unspecified (2) Right lower lobe pneumonia Current Visit: No Status: Acute Resolving Qualifiers: Pneumonia type: due to unspecified organism Qualified Code(s): J18.1 - Lobar pneumonia, unspecified organism (3) Acute and chronic respiratory failure Current Visit: No Status: Acute Prolonged; required vent at night. Qualifiers: Respiratory failure complication: hypoxia and hypercapnia Qualified Code(s): J96.21 - Acute and chronic respiratory failure with hypoxia; J96.22 - Acute and chronic respiratory failure with hypercapnia (4) Severe sepsis Current Visit: Yes Status: Acute Resolving; continue IV abx and current therapy. (5) Hypertension Current Visit: Yes Status: Acute Stable; hospitalist managing. Qualifiers: Hypertension type: essential hypertension Qualified Code(s): I10 - Essential (primary) hypertension (6) COPD (chronic obstructive pulmonary disease) Current Visit: Yes Status: Acute Stable; hospitalist managing. Qualifiers: COPD type: COPD with acute exacerbation Qualified Code(s): J44.1 - Chronic obstructive pulmonary disease with (acute) exacerbation History of Present Illness Consult date: 06/23/18 Reason for consult: other (dysphagia and prolonged ventilation with need for PEG) Requesting physician: Devyn Morton History of present illness: This 63 y/o male is admitted to [facility] in respiratory failure d/t pnuemonia and COPD. He requires prolonged ventilation. He has a trach. He has severe dysphag ia. He needs PEG for TF for nutrition. Pt is able to consent for himself. Past Med Surg Social Fam HX - Past Medical History Medical history: COPD, diabetes, GERD, hypertension, other (Chronic respiratory failure, metabolic encephalopathy, morbid obesity, pickwickian syndrome) Additional medical history: RESPIRATORY FAILURE/TRACH/VENT DEPENDENT Psychiatric history: no psych history - Past Surgical History Surgical History: tracheostomy - Social History Smoking Status: Former smoker Alcohol use: none Drug use: none Medications and Allergies Acetaminophen 650 mg PO Q6HR PRN 06/21/18 [History] Arformoterol Tartrate [Brovana] 15 mcg IH QSHIFT 06/21/18 [History] Ascorbate Calcium [Vitamin C] 500 mg PO DAILY 06/21/18 [History] Budesonide [Pulmicort] 4 ml IH QSHIFT 06/21/18 [History] Carvedilol 3.125 mg PO BID 06/21/18 [History] Citalopram Hydrobromide [Celexa] 20 mg PO DAILY 06/21/18 [History] Enoxaparin [Lovenox] 40 mg SQ DAILY 06/21/18 [History] Ferrous Sulfate Oral Soln 6.8 ml PO DAILY 06/21/18 [History] Insulin LISPRO [Admelog Solostar] 2 - 10 unit SQ Q6H 06/21/18 [History] Ipratropium/Albuterol Sulfate [Iprat-Albut 0.5-3(2.5) mg/3 ml] 3 ml IH Q6HR 06/21/18 [History] Lisinopril [Zestril] 5 mg PO DAILY 06/21/18 [History] Metformin HCl 500 mg PO BID 06/21/18 [History] Potassium Chloride [K-Tab ER] 20 meq PO DAILY 06/21/18 [History] Ranitidine Oral Soln [Zantac] 10 ml PO BID 06/21/18 [History] Soft Lens Saline Solution 0.9% 1 appl TP QSHIFT 06/21/18 [History] Zinc Sulfate 220 mg PO DAILY 06/21/18 [History] amLODIPine [Norvasc] 5 mg PO DAILY 06/21/18 [History] clonazePAM [Clonazepam] 1 mg PO BID 06/21/18 [History] predniSONE [PredniSONE] See Taper PO AD 06/21/18 [History] Allergy/AdvReac Type Severity Reaction Status Date / Time No Known Allergies Allergy Verified 06/21/18 07:48 Review of Systems All systems PM: The remainder of the systems were reviewed and are negative - Constitutional as per HPI, fatigue, weakness, no chills, no fever(s) - EENT Nose, mouth and throat: dry mouth, dysphagia, sore throat, no nasal congestion - Cardiovascular dyspnea, dyspnea on exertion, no chest pain, no diaphoresis, no edema - Respiratory cough, dyspnea, wheezing - Gastrointestinal dysphagia, heartburn, no abdominal pain, no nausea, no odynophagia, no vomiting - Genitourinary other (fernandez in place) - Musculoskeletal back pain, joint swelling, limited range of motion, neck pain - Integumentary dry skin, no pruritus, no rash, no wounds, no jaundice - Neurological focal weakness, weakness - Endocrine fatigue - Hematologic/Lymphatic no easy bleeding, no easy bruising General Surgery Exam Initial Vital Signs Resp Pulse Ox 17 92 06/21/18 12:00 06/21/18 12:00 - General physical appearance no distress, no pain, other (trached in ICU; on vent at night) - Eyes PERRL, normal ocular movement. negative: icteric - ENT no congestion, dry mucosa. negative: nasal discharge - Neck no masses, no lymphadectomy, no venous distension - Respiratory normal respiratory effort wheezing: bilateral, rales: bilateral - Cardiovascular Cardiovascular exam: Present: RRR - Abdomen Abdomen general surgery: Present: bowel sounds present, soft, non tender. Absent: distended - Genitourinary Present: normal penis with no external lesions - Integumentary Integumentary general surgery: Present: other (ecchymosis from SQ injections) - Neurologic Present: CN 2-12 grossly intact - Musculoskeletal Present: normal posture - Psychiatric Psychiatric general surgery: Present: A&Ox3, appropriate Exam Initial Vital Signs Resp Pulse Ox 17 92 06/21/18 12:00 06/21/18 12:00 Results - Labs 06/23/18 04:00 06/23/18 04:00 Abnormal lab results WBC 17.3 K/mcL (4.3-11.1) H 06/23/18 04:00 RBC 3.32 M/mcL (4.19-5.50) L 06/23/18 04:00 Hgb 9.5 g/dL (12.9-16.9) L 06/23/18 04:00 Hct 30.8 % (37.5-50.1) L 06/23/18 04:00 MCHC 30.8 g/dL (31.6-35.5) L 06/23/18 04:00 RDW 14.9 % (11.5-14.5) H 06/23/18 04:00 Band Neutrophils % 16.0 % (0-4) H 06/21/18 13:45 Neutrophils # 15.4 K/mcL (1.6-8.9) H 06/23/18 04:00 ABG pCO2 58 mmHg (35-45) H 06/23/18 05:13 ABG pO2 74 mmHg (85-104) L 06/23/18 05:13 ABG HCO3 36 mEq/L (21-27) H 06/23/18 05:13 ABG Total CO2 38 mEq/L (20-26) H 06/23/18 05:13 ABG O2 Saturation 94 % (95-98) L 06/23/18 05:13 ABG Base Excess 10 mEq/L (-2 to 3) H 06/23/18 05:13 Carbon Dioxide 31 mEq/L (23-29) H 06/23/18 04:00 BUN 44 mg/dL (8-23) H 06/23/18 04:00 Creatinine 2.65 mg/dL (0.70-1.30) H 06/23/18 04:00 Est GFR ( Amer) 30 (> 60) L 06/23/18 04:00 Est GFR (Non-Af Amer) 24 (> 60) L 06/23/18 04:00 Glucose 110 mg/dL (70-105) H 06/23/18 04:00 POC Glucose 110 mg/dL (70-99) H 06/23/18 16:15 Calculated Osmolality 302 (280-300) H 06/23/18 04:00 Phosphorus 4.6 mg/dL (2.7-4.5) H 06/22/18 04:35 AST 9 Units/L (13-39) L 06/21/18 13:45 Creatine Kinase 14 Units/L (30-223) L 06/22/18 12:36 Troponin I 0.05 ng/mL (< 0.04) H* 06/21/18 20:25 Serum Total Protein 5.1 g/dL (6.4-8.9) L 06/21/18 13:45 Albumin 3.0 g/dL (3.5-5.7) L 06/21/18 13:45 Globulin 2.1 g/dL (2.4-3.5) L 06/21/18 13:45 Diabetes panel 06/22/18 06/23/18 Range/Units 22:00 04:00 Sodium 140 140 (136-145) mEq/L Potassium 4.1 4.0 (3.5-5.1) mEq/L Chloride 97 L 98 (98-107) mEq/L Carbon Dioxide 31 H 31 H (23-29) mEq/L BUN 42 H 44 H (8-23) mg/dL Creatinine 2.48 H 2.65 H (0.70-1.30) mg/dL Glucose 163 H 110 H (70-105) mg/dL Calcium 8.6 8.7 (8.6-10.3) mg/dL Calcium panel 06/22/18 06/23/18 Range/Units 22:00 04:00 Calcium 8.6 8.7 (8.6-10.3) mg/dL Pituitary panel 06/22/18 06/23/18 Range/Units 22:00 04:00 Sodium 140 140 (136-145) mEq/L Potassium 4.1 4.0 (3.5-5.1) mEq/L Chloride 97 L 98 (98-107) mEq/L Carbon Dioxide 31 H 31 H (23-29) mEq/L BUN 42 H 44 H (8-23) mg/dL Creatinine 2.48 H 2.65 H (0.70-1.30) mg/dL Glucose 163 H 110 H (70-105) mg/dL Calcium 8.6 8.7 (8.6-10.3) mg/dL Adrenal panel 06/22/18 06/23/18 Range/Units 22:00 04:00 Sodium 140 140 (136-145) mEq/L Potassium 4.1 4.0 (3.5-5.1) mEq/L Chloride 97 L 98 (98-107) mEq/L Carbon Dioxide 31 H 31 H (23-29) mEq/L BUN 42 H 44 H (8-23) mg/dL Creatinine 2.48 H 2.65 H (0.70-1.30) mg/dL Glucose 163 H 110 H (70-105) mg/dL Calcium 8.6 8.7 (8.6-10.3) mg/dL All other labs normal. - Imaging Chest x-ray: image reviewed Consult Discharge Plan - Plan Referrals: Zachery Regalado MD [Primary Care Provider] -
[2018-06-23] MEDS ORDERED: Insulin LISPRO 300 UNITS/3 ML VIAL SQ SCH (18:00)
[2018-06-23] MEDS ORDERED: *HR* FentaNYL (PF) 100 MCG/2 ML VIAL IVP ONE (18:01)
[2018-06-23] MEDS ORDERED: *HR* FentaNYL (PF) 100 MCG/2 ML VIAL ONE (18:02)
[2018-06-23] MEDS ORDERED: *HR* Midazolam HCl 5 MG/5 ML VIAL IVP ONE ×2 (18:02→18:03)
[2018-06-23] MEDS ORDERED: Ringers Solution, Lactated 0 ML ONE (18:14)
--- NOTE | 2018-06-23 19:16 | Pre-Sedation Evaluation ---
Pre-sedation evaluation - Pre-sedation checklist Date of procedure: 06/21/18 Procedure: EGD/PEG Recent Vitals: Last Vital Signs Temp 97.9 F 06/23/18 18:10 Pulse 95 06/23/18 18:10 Resp 15 06/23/18 18:10 BP 156/79 06/23/18 18:10 Pulse Ox 89 06/23/18 18:00 H&P (including ROS) documented in medical record: Yes Previous reaction to sedatives/anesthetics: No Dietary Status: NPO 6 hours prior to procedure Airway Assessment: Neck with adequate range of motion Dentition: No loose teeth or bridges Possible difficult airway: No ASA Classification *see protocol: CLASS III-Severe systemic disease Plan of Care: Pt appropriate candidate for procedure/moderate/conscious sedation Cardiac Registry (Cardio Only) - Functional Capacity Functional Capacity: < 4 METS - Clincal Frailty Scale Clinical Frailty Scale: Severely Frail
[2018-06-23] MEDS ORDERED: 0.9 % Sodium Chloride 500 ML ONE (21:15)
[2018-06-24] MEDS: Ipratropium/Albuterol Neb 3 ML IH SCH ×7 (00:33→23:36)
[2018-06-24] MEDS: Hydrocortisone Sodium Succ 100 MG/2 ML VIAL IVP SCH (00:40)
[2018-06-24] MEDS: Piperacillin/Tazobactam 3.375 GM in 0.9 % Sodium Chloride Mini Bag 100 ML IVPB SCH ×3 (00:40→20:37)
[2018-06-24] MEDS: Artificial Tears SOLN 15 ML BOTTLE BOTH EYES SCH ×6 (04:30→20:44)
[2018-06-24 05:02] LABS: Basophils % 0.1 %; Hematocrit 31.6 % (37.5-50.1); Hemoglobin 9.6 g/dL (12.9-16.9); Immature Granulocytes % 0.6 % (0-4); Lymphocytes # 0.8 K/mcL (0.6-4.6); Lymphocytes % 5.5 %; Mean Corpuscular HGB Conc 30.4 g/dL (31.6-35.5); Mean Corpuscular Hemoglobin 27.8 pg (28.0-33.3); Mean Corpuscular Volume 91.6 fL (83.0-100.0); Mean Platelet Volume 10.4 fL (9.4-12.4); Monocytes # 0.7 K/mcL (0.0-1.3); Monocytes % 4.6 %; Neutrophils # 12.9 K/mcL (1.6-8.9); Platelet Count 260 K/mcL (140-400); Red Blood Count 3.45 M/mcL (4.19-5.50); Red Cell Distribution Width 15.4 % (11.5-14.5); Segmented Neutrophils % 89.2 %
[2018-06-24 05:21] LABS: Calcium 8.7 mg/dL (8.6-10.3); Potassium 4.4 mEq/L (3.5-5.1)
[2018-06-24] MEDS: *HR* Heparin 5,000 UNIT/ML VIAL SQ SCH ×3 (06:08→20:38)
[2018-06-24] MEDS: Insulin LISPRO 300 UNITS/3 ML VIAL SQ SCH ×3 (08:50→17:33)
[2018-06-24] MEDS ORDERED: clonazePAM 1 MG TABLET PO SCH (09:00)
[2018-06-24] MEDS ORDERED: Ferrous Sulfate Oral Soln 300 MG/5 ML UDC PO SCH (09:00)
[2018-06-24] MEDS: clonazePAM 1 MG TABLET GTUBE SCH ×2 (09:42→20:37)
[2018-06-24] MEDS: Chlorhexidine Rinse 15 ML MOUTHWASH MM SCH ×2 (09:43→20:44)
[2018-06-24] MEDS: Ferrous Sulfate Oral Soln 300 MG/5 ML UDC GTUBE SCH (09:43)
[2018-06-24] MEDS: MethylPREDNISolone 40 MG/ML VIAL IVP SCH ×2 (09:43→17:33)
--- NOTE | 2018-06-24 10:19 | Internal Med Progress Note ---
Hospitalist Progress Note - Encounter Date of Encounter: 06/24/18 Time of Encounter: 08:30 - Subjective Interval History: Hospital course reviewed. Pt with history of COPD on chronic steroid, chronic tracheostomy dependence, DM, HTN, was admitted to ICU on 06/21 due to septic shock and acute on chronic respiratory failure secondary to RLL PNA. Successfully weaned off on pressors and to trach collar on IV Abx. WBC downtrending. Due to the concern for recurrent aspiration, PEG tube was placed yesterday. Currently denies any chest pain, SOB, or chills. No fever noted overnight. - Exam Vitals: Temp Pulse Resp BP Pulse Ox 98.2 F 97 16 144/82 95 06/24/18 08:01 06/24/18 08:01 06/24/18 08:01 06/24/18 08:01 06/24/18 08:01 Exam: General appearance: no acute distress Pulmonary: on trach collar, diffuse bilateral rhonchi Cardiovascular: regular rate and rhythm Gastrointestinal: soft, non-tender. PEG tube site appears unremarkable Musculoskeletal: no deformities Neuro: non-focal exam - Assessment and Plan (1) Acute on chronic respiratory failure with hypoxia and hypercapnia Current Visit: Yes Status: Acute Assessment and Plan: due to RLL PNA, on chronic trach tolerating trach mask well Continue with bronchopulmonary hygiene covering for hospital associated organisms as well as aspiration episode, continue Zosyn D3 (2) Right lower lobe pneumonia Current Visit: No Status: Acute Assessment and Plan: WBC trending down with acceptably oxygenation on Zosyn, continue strep/legionella ag -ve (3) LUNA (acute kidney injury) Current Visit: Yes Status: Acute Assessment and Plan: likely due to ATN from septic shock, worsening Cr trend noted since presentation UOP ~ 400ml yesterday LINDA-i on hold check urine eosinophil, CPK, urine Na/Cr retroperitoneal US nephrology consult renally dosed abx (4) COPD exacerbation Current Visit: Yes Status: Acute Assessment and Plan: was on stress dose steroids with hydrocortisone due to septic shock and chronic steroid dependence will switch to solumedrol continue bronchodilators and bronchopulmonary hygiene. abx as per PNA (5) Adrenal insufficiency Current Visit: Yes Status: Acute Assessment and Plan: steroid as above (6) Septic shock Current Visit: Yes Status: Resolved Assessment and Plan: resolved, off pressors abx as above (7) Diabetes mellitus Current Visit: Yes Status: Acute Assessment and Plan: started on PEG tube feeding, low dose sliding scale Q6 (8) Dysphagia Current Visit: Yes Status: Acute Assessment and Plan: s/p PEG tube insertion yesterday, appreciate surgery input (9) DVT prophylaxis Current Visit: Yes Status: Acute Assessment and Plan: SQ heparin - Time Spent with Patient Total time spent is greater than 50% in coordination of care (as documented) at patient's floor/unit and/or counseling patient: Greater than 35 minutes Plan of Care Discussed with: patient (discussed with Nephrology and RN in great detail) Internal Medicine: Result - Labs CBC & Chem 7: 06/24/18 04:35 06/24/18 04:35 Labs: Short CBC 06/24/18 Range/Units 04:35 WBC 14.4 H (4.3-11.1) K/mcL Hgb 9.6 L (12.9-16.9) g/dL Hct 31.6 L (37.5-50.1) % Plt Count 260 (140-400) K/mcL Neutrophils # 12.9 H (1.6-8.9) K/mcL BMP 06/24/18 04:35 Sodium 143 Potassium 4.4 Chloride 100 Carbon Dioxide 27 BUN 57 H Creatinine 3.29 H Glucose 119 H Calcium 8.7 - ABG Interpretation ABG results: ABG ABG pH 7.41 pH Units (7.32-7.45) 06/23/18 05:13 ABG pCO2 58 mmHg (35-45) H 06/23/18 05:13 ABG pO2 74 mmHg (85-104) L 06/23/18 05:13 ABG O2 Saturation 94 % (95-98) L 06/23/18 05:13 Consult Discharge Plan - Plan Referrals: Zachery Regalado MD [Primary Care Provider] - (2) Right lower lobe pneumonia Qualifiers: Pneumonia type: due to unspecified organism Qualified Code(s): J18.1 - Lobar pneumonia, unspecified organism (7) Diabetes mellitus Qualifiers: Diabetes mellitus type: type 2 Diabetes mellitus shelter insulin use: w ithout intermediate school teacher use Qualified Code(s): E11.9 - Type 2 diabetes mellitus w ithout complications (8) Dysphagia Qualifiers: Qualified Code(s): R13.10 - Dysphagia, unspecified
[2018-06-24] MEDS: Budesonide Neb 0.5 MG/2 ML IH SCH ×2 (11:34→20:14)
--- NOTE | 2018-06-24 11:48 | Nephrology Progress Note ---
Date of Encounter: 06/24/18 Time of Encounter: 11:48 Subjective Principal diagnosis: Pneumonia Objective - Vital Signs Vital signs: Vital Signs Temp Temp Temp Temp Temp Pulse Pulse 06/24/18 11:19 98.2 F 89 06/24/18 08:01 98.2 F 97 06/24/18 07:57 06/24/18 04:17 06/24/18 04:00 83 06/24/18 03:19 98.1 F 84 06/24/18 02:00 06/24/18 01:30 06/24/18 00:33 06/23/18 23:22 97.7 F 79 06/23/18 22:30 06/23/18 21:30 06/23/18 20:39 06/23/18 20:00 06/23/18 19:34 97.9 F 85 06/23/18 18:10 97.9 F 97.9 F 97.9 F 97.9 F 95 06/23/18 18:00 95 06/23/18 17:00 97.9 F 06/23/18 16:10 06/23/18 16:00 96 06/23/18 14:00 102 06/23/18 12:00 97.2 F L 96 Pulse Pulse Pulse Resp Resp Resp Resp 06/24/18 11:19 16 06/24/18 08:01 16 06/24/18 07:57 13 06/24/18 04:17 13 06/24/18 04:00 06/24/18 03:19 15 06/24/18 02:00 18 06/24/18 01:30 20 06/24/18 00:33 17 06/23/18 23:22 19 06/23/18 22:30 18 06/23/18 21:30 19 06/23/18 20:39 14 06/23/18 20:00 06/23/18 19:34 14 06/23/18 18:10 95 97 102 15 22 26 06/23/18 18:00 15 06/23/18 17:00 06/23/18 16:10 18 06/23/18 16:00 15 06/23/18 14:00 14 06/23/18 12:00 15 Resp BP BP BP BP BP Pulse Ox 06/24/18 11:19 146/92 91 06/24/18 08:01 144/82 95 06/24/18 07:57 94 06/24/18 04:17 154/100 95 06/24/18 04:00 154/100 06/24/18 03:19 146/85 94 06/24/18 02:00 142/77 98 06/24/18 01:30 129/72 100 06/24/18 00:33 143/77 95 06/23/18 23:22 132/79 99 06/23/18 22:30 141/77 98 06/23/18 21:30 132/76 100 06/23/18 20:39 100 06/23/18 20:00 98 06/23/18 19:34 134/74 99 06/23/18 18:10 19 156/79 153/91 161/91 149/74 06/23/18 18:00 156/79 89 06/23/18 17:00 06/23/18 16:10 94 06/23/18 16:00 119/67 96 06/23/18 14:00 134/81 97 06/23/18 12:00 149/87 98 Intake and Output 06/23/18 06/24/18 06/24/18 23:59 07:59 15:59 Intake Total 200 / 200 20 / 20 Output Total 100 / 100 250 / 250 Balance 100 / 100 -230 / -230 Intake: IV Fluids 200 / 200 PRECEDEX Premix 400 mcg In 100 100 / 100 ml @ 0.2 MCG/KG/HR 5.02 mls/hr IVC .[id number] [facility] Rx#:[id number] Zosyn 3.375 GM In 0.9 % Sodium 100 / 100 Chloride (Mini-Bag +) 100 ML @ 25 mls/hr IVPB Q8H [facility] Rx#: [id number] Oral 0 / 0 0 / 0 Free Water Intake Amount 20 / 20 Output: Urine 0 / 0 Catheter 100 / 100 250 / 250 Other: Blood Glucose* 108 107 105 - Lab 06/24/18 04:35 06/24/18 04:35 Most recent lab results ABG pH 7.41 pH Units (7.32-7.45) 06/23/18 05:13 ABG pCO2 58 mmHg (35-45) H 06/23/18 05:13 ABG pO2 74 mmHg (85-104) L 06/23/18 05:13 ABG HCO3 36 mEq/L (21-27) H 06/23/18 05:13 ABG O2 Saturation 94 % (95-98) L 06/23/18 05:13 Calcium 8.7 mg/dL (8.6-10.3) 06/24/18 04:35 Phosphorus 4.6 mg/dL (2.7-4.5) H 06/22/18 04:35 Magnesium 2.1 mg/dL (1.6-2.6) 06/23/18 04:00 Consult Discharge Plan - Plan Referrals: Zachery Regalado MD [Primary Care Provider] -
--- NOTE | 2018-06-24 16:43 | Nephrology Consult Note ---
Date of Encounter: 06/24/18 Time of Encounter: 16:42 Assessment and Plan (1) LUNA (acute kidney injury) Current Visit: Yes Status: Acute Patient has multifactorial acute kidney injury with no history of pre-existing chronic kidney disease. Patient has sepsis. Agree with hydration. Discussed with primary team. Workup as ordered. We will continue to follow with you. Thank you for the consult. At the time my evaluation the patient does not need dialysis. (2) Acute on chronic respiratory failure with hypoxia and hypercapnia Current Visit: Yes Status: Acute Per the primary team (3) COPD (chronic obstructive pulmonary disease) Current Visit: Yes Status: Acute Per the primary team Qualifiers: COPD type: COPD with acute exacerbation Qualified Code(s): J44.1 - Chronic obstructive pulmonary disease with (acute) exacerbation (4) Diabetes mellitus Current Visit: Yes Status: Acute Per the primary team Qualifiers: Diabetes mellitus type: type 2 Diabetes mellitus longterm insulin use: without tank terminal gauger use Qualified Code(s): E11.9 - Type 2 diabetes mellitus without complications History of Present Illness - Reason for Consult Consult date: 06/24/18 Acute Kidney Injury, Chronic Kidney Disease - Chief Complaint luna on CKD - History of Present Illness Mr. Lubin is a 63 yo man with a history of steroid dependent copd who presents for the evaluation of respiratory distress. He was found to have a pneumonia. He was treated with antibiotics and subsequently found to have LUNA. [facility] was consulted to assist with management of his luna. Past Med Surg Social Fam HX - Past Medical History Medical history: COPD, diabetes, GERD, hypertension, other (Chronic respiratory failure, metabolic encephalopathy, morbid obesity, pickwickian syndrome) Additional medical history: RESPIRATORY FAILURE/TRACH/VENT DEPENDENT Psychiatric history: no psych history - Past Surgical History Surgical History: tracheostomy - Social History Smoking Status: Former smoker Alcohol use: none Drug use: none Medications and Allergies Acetaminophen 650 mg PO Q6HR PRN 06/21/18 [History] Arformoterol Tartrate [Brovana] 15 mcg IH QSHIFT 06/21/18 [History] Ascorbate Calcium [Vitamin C] 500 mg PO DAILY 06/21/18 [History] Budesonide [Pulmicort] 4 ml IH QSHIFT 06/21/18 [History] Carvedilol 3.125 mg PO BID 06/21/18 [History] Citalopram Hydrobromide [Celexa] 20 mg PO DAILY 06/21/18 [History] Enoxaparin [Lovenox] 40 mg SQ DAILY 06/21/18 [History] Ferrous Sulfate Oral Soln 6.8 ml PO DAILY 06/21/18 [History] Insulin LISPRO [Admelog Solostar] 2 - 10 unit SQ Q6H 06/21/18 [History] Ipratropium/Albuterol Sulfate [Iprat-Albut 0.5-3(2.5) mg/3 ml] 3 ml IH Q6HR 06/21/18 [History] Lisinopril [Zestril] 5 mg PO DAILY 06/21/18 [History] Metformin HCl 500 mg PO BID 06/21/18 [History] Potassium Chloride [K-Tab ER] 20 meq PO DAILY 06/21/18 [History] Ranitidine Oral Soln [Zantac] 10 ml PO BID 06/21/18 [History] Soft Lens Saline Solution 0.9% 1 appl TP QSHIFT 06/21/18 [History] Zinc Sulfate 220 mg PO DAILY 06/21/18 [History] amLODIPine [Norvasc] 5 mg PO DAILY 06/21/18 [History] clonazePAM [Clonazepam] 1 mg PO BID 06/21/18 [History] predniSONE [PredniSONE] See Taper PO AD 06/21/18 [History] Allergy/AdvReac Type Severity Reaction Status Date / Time No Known Allergies Allergy Verified 06/21/18 07:48 Review of Systems All Systems: reviewed and no additional remarkable complaints except as stated (as per hpi) Exam - Vital Signs Vital signs: Initial Vital Signs Resp Pulse Ox 17 92 06/21/18 12:00 06/21/18 12:00 Vital Signs - Last 8 Hours Temp Pulse Resp BP Pulse Ox 06/24/18 16:37 98.1 F 99 16 156/92 92 06/24/18 16:17 18 91 06/24/18 11:34 16 92 06/24/18 11:19 98.2 F 89 16 146/92 91 Intake and Output 06/24/18 06/24/18 06/24/18 07:59 15:59 23:59 Intake Total 175 / 175 Output Total 250 / 250 Balance -230 / -230 175 / 175 Intake: IV Fluids 50 / 50 PRECEDEX Premix 400 mcg In 100 50 / 50 ml @ 0.2 MCG/KG/HR 5.02 mls/hr IVC .[id number] [facility] Rx#:[id number] Oral 0 / 0 Free Water Intake Amount 125 / 125 Output: Urine 0 / 0 Catheter 250 / 250 Other: Stool Size Moderate Moderate Stool Consistency loose liquid Stool Color Brown Green Black # Bowel Movements 1 1 Blood Glucose* 107 105 - General Appearance General appearance: well-developed, well-nourished EENT: ATNC Neck: supple Respiratory: course breath sounds Cardiology: no edema, regular rate Gastrointestinal: no tenderness Integumentary: warm and dry Neurologic: alert and oriented x3 Musculoskeletal: no cyanosis Results - Lab Results 06/28/18 04:50 06/28/18 04:50 Most recent lab results ABG pH 7.41 pH Units (7.32-7.45) 06/23/18 05:13 ABG pCO2 58 mmHg (35-45) H 06/23/18 05:13 ABG pO2 74 mmHg (85-104) L 06/23/18 05:13 ABG HCO3 36 mEq/L (21-27) H 06/23/18 05:13 ABG O2 Saturation 94 % (95-98) L 06/23/18 05:13 Calcium 8.7 mg/dL (8.6-10.3) 06/24/18 04:35 Phosphorus 4.6 mg/dL (2.7-4.5) H 06/22/18 04:35 Magnesium 2.1 mg/dL (1.6-2.6) 06/23/18 04:00 Consult Discharge Plan - Plan Referrals: Zachery Regalado MD [Primary Care Provider] -
[2018-06-25] MEDS: Artificial Tears SOLN 15 ML BOTTLE BOTH EYES SCH ×7 (00:12→23:12)
[2018-06-25] MEDS: Insulin LISPRO 300 UNITS/3 ML VIAL SQ SCH ×5 (00:29→23:10)
[2018-06-25] MEDS: Ipratropium/Albuterol Neb 3 ML IH SCH ×6 (04:44→23:22)
[2018-06-25 04:49] LABS: Basophils % 0.2 %; Hematocrit 34.1 % (37.5-50.1); Hemoglobin 10.3 g/dL (12.9-16.9); Lymphocytes # 0.6 K/mcL (0.6-4.6); Lymphocytes % 5.3 %; Mean Corpuscular HGB Conc 30.2 g/dL (31.6-35.5); Mean Corpuscular Hemoglobin 28.1 pg (28.0-33.3); Mean Corpuscular Volume 92.9 fL (83.0-100.0); Mean Platelet Volume 10.6 fL (9.4-12.4); Monocytes # 0.5 K/mcL (0.0-1.3); Monocytes % 4.2 %; Neutrophils # 10.1 K/mcL (1.6-8.9); Platelet Count 266 K/mcL (140-400); Red Blood Count 3.67 M/mcL (4.19-5.50); Red Cell Distribution Width 14.9 % (11.5-14.5); Segmented Neutrophils % 88.3 %
[2018-06-25 05:09] LABS: Calcium 8.7 mg/dL (8.6-10.3); Magnesium 2.4 mg/dL (1.6-2.6); Potassium 4.5 mEq/L (3.5-5.1)
[2018-06-25] MEDS: *HR* Heparin 5,000 UNIT/ML VIAL SQ SCH ×3 (06:11→23:06)
[2018-06-25] MEDS: MethylPREDNISolone 40 MG/ML VIAL IVP SCH ×2 (06:11→17:06)
[2018-06-25] MEDS: Budesonide Neb 0.5 MG/2 ML IH SCH ×2 (07:56→19:57)
[2018-06-25 08:34] LABS: Bilirubin,Urine Negative (Negative); Blood,Urine Moderate (Negative); Clarity,Urine Cloudy (Clear); Color,Urine Yellow (Yellow); Glucose,Urine (UA) 250 mg/dL (Normal); Ketones,Urine Negative (Negative); Leukocyte Esterase,Urine Small (Negative); Nitrite,Urine Negative (Negative); PH,Urine 5.5 pH Units (5.0-8.0); Protein,Urine 100 mg/dL (Neg-Trace); Specific Gravity,Urine 1.017 (1.010-1.025); Urobilinogen,Urine Normal (Normal)
[2018-06-25 08:37] LABS: Bacteria,Urine None Seen per hpf (None-Few); Hyaline Casts,Urine None Seen per lpf (None-Few); Squamous Epithelial Cell,Urine Many per lpf (None-Few); WBC,Urine 15-30 per hpf (0-3)
[2018-06-25 08:44] LABS: Sodium, Urine 62.7 mEq/L
[2018-06-25] MEDS: Ringers Solution, Lactated 1,000 ML IVC SCH ×2 (08:58→23:03)
[2018-06-25] MEDS ORDERED: Insulin DETEMIR 100 UNIT/ML X5UNITS SQ SCH (09:00)
[2018-06-25] MEDS: Chlorhexidine Rinse 15 ML MOUTHWASH MM SCH ×2 (09:03→20:19)
[2018-06-25] MEDS: clonazePAM 1 MG TABLET GTUBE SCH ×2 (09:03→20:16)
[2018-06-25] MEDS: Ferrous Sulfate Oral Soln 300 MG/5 ML UDC GTUBE SCH (09:03)
[2018-06-25] MEDS: Piperacillin/Tazobactam 3.375 GM in 0.9 % Sodium Chloride Mini Bag 100 ML IVPB SCH ×2 (09:04→20:12)
[2018-06-25 09:08] LABS: Granular Casts,Urine Few per lpf (None Seen)
[2018-06-25 09:12] LABS: Yeast,Urine Many per hpf (None Seen)
[2018-06-25 09:14] LABS: Uric Acid Crystals,Urine Present
[2018-06-25 09:15] LABS: RBC,Urine 15-30 per hpf (0-3)
--- NOTE | 2018-06-25 11:07 | Internal Med Progress Note ---
Hospitalist Progress Note - Encounter Date of Encounter: 06/25/18 Time of Encounter: 08:30 - Subjective Interval History: No acute events overnight. Remain afebrile with good oxygenation trach mask. Copious amount of secretion was suctioned according to the RN. Urine output for the last 24 hours ~ 750ml. - Exam Vitals: Temp Pulse Resp BP Pulse Ox 97.7 F 84 18 168/86 97 06/25/18 07:32 06/25/18 07:32 06/25/18 07:56 06/25/18 07:32 06/25/18 07:56 Exam: General appearance: no acute distress Pulmonary: on trach collar, bilateral rhonchi had significantly improved Cardiovascular: regular rate and rhythm Gastrointestinal: soft, non-tender. PEG tube site appears unremarkable Musculoskeletal: no deformities Neuro: non-focal exam - Assessment and Plan (1) Acute on chronic respiratory failure with hypoxia and hypercapnia Current Visit: Yes Status: Acute Assessment and Plan: due to RLL PNA, on chronic trach tolerating trach mask well Continue with bronchopulmonary hygiene covering for hospital associated organisms as well as aspiration episode, continue Zosyn D4 (2) Right lower lobe pneumonia Current Visit: No Status: Acute Assessment and Plan: WBC trending down with acceptably oxygenation on Zosyn, continue strep/legionella ag -ve (3) LUNA (acute kidney injury) Current Visit: Yes Status: Acute Assessment and Plan: likely due to ATN from septic shock, worsening Cr trend noted since presentation UOP ~ 750ml yesterday retroperitoneal US on 06/21 was unremarkable CPK normal, urine na/cr/eosinophils pending LINDA-i on hold will give IVF nephrology input appreciated renally dosed abx (4) COPD exacerbation Current Visit: Yes Status: Acute Assessment and Plan: was on stress dose steroids with hydrocortisone due to septic shock and chronic steroid dependence switched to solumedrol yesterday, plan to transition to PO steroids in 1-2 days continue bronchodilators and bronchopulmonary hygiene. abx as per PNA (5) Adrenal insufficiency Current Visit: Yes Status: Acute Assessment and Plan: steroid as above (6) Septic shock Current Visit: Yes Status: Resolved Assessment and Plan: resolved, off pressors abx as above (7) Diabetes mellitus Current Visit: Yes Status: Acute Assessment and Plan: started on PEG tube feeding, low dose sliding scale Q6. Will add levemir 10U daily (8) Dysphagia Current Visit: Yes Status: Acute Assessment and Plan: s/p PEG tube insertion 06/23, appreciate surgery input (9) DVT prophylaxis Current Visit: Yes Status: Acute Assessment and Plan: SQ heparin - Time Spent with Patient Total time spent is greater than 50% in coordination of care (as documented) at patient's floor/unit and/or counseling patient: 25 - 35 minutes Plan of Care Discussed with: patient (discussed with Nephrology) Internal Medicine: Result - Labs CBC & Chem 7: 06/25/18 04:35 06/25/18 04:35 Labs: Short CBC 06/25/18 Range/Units 04:35 WBC 11.4 H (4.3-11.1) K/mcL Hgb 10.3 L (12.9-16.9) g/dL Hct 34.1 L (37.5-50.1) % Plt Count 266 (140-400) K/mcL Neutrophils # 10.1 H (1.6-8.9) K/mcL BMP 06/25/18 04:35 Sodium 141 Potassium 4.5 Chloride 102 Carbon Dioxide 29 BUN 75 H Creatinine 3.81 H Glucose 261 H Calcium 8.7 Urine 06/25/18 Range/Units 07:42 Urine Color Yellow (Yellow) Urine Clarity Cloudy A (Clear) Urine pH 5.5 (5.0-8.0) pH Units Ur Specific [place] 1.017 (1.010-1.025) Urine Protein 100 H (Neg-Trace) mg/dL Urine Glucose (UA) 250 H (Normal) mg/dL - ABG Interpretation ABG results: ABG ABG pH 7.41 pH Units (7.32-7.45) 06/23/18 05:13 ABG pCO2 58 mmHg (35-45) H 06/23/18 05:13 ABG pO2 74 mmHg (85-104) L 06/23/18 05:13 ABG O2 Saturation 94 % (95-98) L 06/23/18 05:13 Consult Discharge Plan - Plan Referrals: Zachery Regalado MD [Primary Care Provider] - (2) Right lower lobe pneumonia Qualifiers: Pneumonia type: due to unspecified organism Qualified Code(s): J18.1 - Lobar pneumonia, unspecified organism (7) Diabetes mellitus Qualifiers: Diabetes mellitus type: type 2 Diabetes mellitus watermelon inspector insulin use: without mcc use Qualified Code(s): E11.9 - Type 2 diabetes mellitus without complications (8) Dysphagia Qualifiers: Qualified Code(s): R13.10 - Dysphagia, unspecified
[2018-06-25] MEDS ORDERED: ACETAMINOPHEN 650 MG PO PRN (11:17)
[2018-06-25] MEDS: *HR* HYDROcodone/Acet 5/325 mg TABLET GTUBE PRN (12:13)
[2018-06-25] MEDS: amLODIPine 5 MG TABLET GTUBE SCH (14:18)
--- NOTE | 2018-06-25 15:56 | Nephrology Progress Note ---
Date of Encounter: 06/25/18 Time of Encounter: 15:56 - Assessment and Plan (1) LUNA (acute kidney injury) Current Visit: Yes Status: Acute Renal function getting worse. Agree with hydration. (2) Diabetes mellitus Current Visit: Yes Status: Acute Qualifiers: Diabetes mellitus type: type 2 Diabetes mellitus manager long term care insulin use: without manager long term care use Qualified Code(s): E11.9 - Type 2 diabetes mellitus without complications Subjective Principal diagnosis: Pneumonia Interval history: Patient seen and evaluated. No new complaint. ROS otherwise is stable. Objective - Vital Signs Vital signs: Vital Signs Temp Pulse Resp BP Pulse Ox 06/25/18 15:46 18 89 06/25/18 14:11 158/93 06/25/18 12:01 97.9 F 81 18 172/103 93 06/25/18 07:56 18 97 06/25/18 07:32 97.7 F 84 18 168/86 100 06/25/18 04:58 159/82 06/25/18 04:47 18 98 06/25/18 03:31 98.2 F 92 20 171/85 92 06/25/18 00:14 98.6 F 85 18 171/91 90 06/24/18 23:37 16 91 06/24/18 20:14 15 94 06/24/18 19:46 98.7 F 89 16 184/65 94 06/24/18 16:37 98.1 F 99 16 156/92 92 06/24/18 16:17 18 91 Intake and Output 06/24/18 06/25/18 06/25/18 23:59 07:59 15:59 Intake Total 710 / 710 548 / 548 125 / 125 Output Total 500 / 500 500 / 500 Balance 210 / 210 48 / 48 125 / 125 Intake: IV Fluids 100 / 100 Zosyn 3.375 GM In 0.9 % Sodium 100 / 100 Chloride (Mini-Bag +) 100 ML @ 25 mls/hr IVPB Q12H [facility] Rx#: [id number] Tube Feeding 435 / 435 298 / 298 Free Water 150 / 150 150 / 150 Free Water Intake Amount 125 / 125 125 / 125 Output: Catheter 500 / 500 500 / 500 Other: Stool Size Small Small Stool Consistency loose liquid liquid Stool Characteristics Normal for Patient Stool Color Brown Green Brown Green # Bowel Movements 1 1 Blood Glucose* 186 248 278 - General Appearance General appearance: Present: well-developed, well-nourished EENT: Present: ATNC Neck: Present: supple Cardiology: Present: no edema Additional Comments: RRR on telemetry Integumentary: Present: warm and dry - Lab 06/28/18 04:50 06/28/18 04:50 Most recent lab results ABG pH 7.41 pH Units (7.32-7.45) 06/23/18 05:13 ABG pCO2 58 mmHg (35-45) H 06/23/18 05:13 ABG pO2 74 mmHg (85-104) L 06/23/18 05:13 ABG HCO3 36 mEq/L (21-27) H 06/23/18 05:13 ABG O2 Saturation 94 % (95-98) L 06/23/18 05:13 Calcium 8.7 mg/dL (8.6-10.3) 06/25/18 04:35 Phosphorus 4.6 mg/dL (2.7-4.5) H 06/22/18 04:35 Magnesium 2.4 mg/dL (1.6-2.6) 06/25/18 04:35 Urine Creatinine 58 mg/dL 06/25/18 07:42 Urine Sodium 62.7 mEq/L 06/25/18 07:42 Consult Discharge Plan - Plan Referrals: Zachery Regalado MD [Primary Care Provider] -
[2018-06-26] MEDS: Ipratropium/Albuterol Neb 3 ML IH SCH ×6 (04:08→23:21)
[2018-06-26 04:56] LABS: Basophils % 0.3 %; Hematocrit 37.4 % (37.5-50.1); Hemoglobin 10.9 g/dL (12.9-16.9); Immature Granulocytes % 1.9 % (0-4); Lymphocytes # 0.5 K/mcL (0.6-4.6); Lymphocytes % 3.5 %; Mean Corpuscular HGB Conc 29.1 g/dL (31.6-35.5); Mean Corpuscular Hemoglobin 27.9 pg (28.0-33.3); Mean Corpuscular Volume 95.9 fL (83.0-100.0); Mean Platelet Volume 10.3 fL (9.4-12.4); Monocytes # 0.8 K/mcL (0.0-1.3); Monocytes % 4.9 %; Neutrophils # 13.7 K/mcL (1.6-8.9); Platelet Count 263 K/mcL (140-400); Red Cell Distribution Width 14.6 % (11.5-14.5); Segmented Neutrophils % 89.4 %
[2018-06-26] MEDS: Artificial Tears SOLN 15 ML BOTTLE BOTH EYES SCH ×6 (05:49→23:21)
[2018-06-26] MEDS: MethylPREDNISolone 40 MG/ML VIAL IVP SCH ×2 (06:13→17:32)
[2018-06-26 06:15] LABS: Phosphorous 6.6 mg/dL (2.7-4.5); Potassium 5.3 mEq/L (3.5-5.1)
[2018-06-26] MEDS: *HR* Heparin 5,000 UNIT/ML VIAL SQ SCH ×3 (06:16→23:18)
[2018-06-26] MEDS: Insulin LISPRO 300 UNITS/3 ML VIAL SQ SCH ×3 (06:19→17:35)
[2018-06-26] MEDS: Budesonide Neb 0.5 MG/2 ML IH SCH ×2 (07:48→19:46)
[2018-06-26] MEDS: clonazePAM 1 MG TABLET GTUBE SCH ×2 (09:14→20:21)
[2018-06-26] MEDS: amLODIPine 5 MG TABLET GTUBE SCH (09:14)
[2018-06-26] MEDS: Insulin DETEMIR 100 UNIT/ML X5UNITS SQ SCH (09:16)
[2018-06-26] MEDS: Chlorhexidine Rinse 15 ML MOUTHWASH MM SCH ×2 (09:17→20:33)
[2018-06-26] MEDS: Piperacillin/Tazobactam 3.375 GM in 0.9 % Sodium Chloride Mini Bag 100 ML IVPB SCH ×2 (09:17→20:17)
[2018-06-26] MEDS: Ferrous Sulfate Oral Soln 300 MG/5 ML UDC GTUBE SCH (09:17)
[2018-06-26] MEDS: *HR* HYDROcodone/Acet 5/325 mg TABLET GTUBE PRN ×3 (10:00→23:28)
--- NOTE | 2018-06-26 11:49 | Internal Med Progress Note ---
Hospitalist Progress Note - Encounter Date of Encounter: 06/26/18 Time of Encounter: 09:15 - Subjective Interval History: No acute events overnight. Remain afebrile with good oxygenation through trach mask. Secretions are getting less and urine output for the last 24 hours increased to 1090ml. - Exam Vitals: Temp Pulse Resp BP Pulse Ox 98.0 F 84 18 172/112 95 06/26/18 11:06 06/26/18 11:06 06/26/18 11:06 06/26/18 11:06 06/26/18 11:06 Exam: General appearance: no acute distress Pulmonary: on trach collar, bilateral rhonchi had significantly improved Cardiovascular: regular rate and rhythm Gastrointestinal: soft, non-tender. PEG tube site appears unremarkable Musculoskeletal: no deformities Neuro: non-focal exam - Assessment and Plan (1) Acute on chronic respiratory failure with hypoxia and hypercapnia Current Visit: Yes Status: Acute Assessment and Plan: due to RLL PNA, on chronic trach tolerating trach mask well Continue with bronchopulmonary hygiene covering for hospital associated organisms as well as aspiration episode, continue Zosyn D5 (2) LUNA (acute kidney injury) Current Visit: Yes Status: Acute Assessment and Plan: likely due to ATN from septic shock, worsening Cr trend noted since presentation UOP improved to 1090ml, Cr also slightly trended down to 3.74. K mildly elevated at 5.3 retroperitoneal US on 06/21 was unremarkable CPK normal, urine eosinophils 0 LINDA-i on hold will continue IVF for now, 1 dose of kayexalate nephrology input appreciated renally dosed abx (3) Right lower lobe pneumonia Current Visit: No Status: Acute Assessment and Plan: strep/legionella ag -ve, abx as above (4) COPD exacerbation Current Visit: Yes Status: Acute Assessment and Plan: was on stress dose steroids with hydrocortisone due to septic shock and chronic steroid dependence switched to solumedrol yesterday, plan to transition to PO steroids tomorrow and taper back to his home dose of 20mg over 2 weeks continue bronchodilators and bronchopulmonary hygiene. abx as per PNA (5) Adrenal insufficiency Current Visit: Yes Status: Acute Assessment and Plan: steroid as above (6) Septic shock Current Visit: Yes Status: Resolved Assessment and Plan: resolved, off pressors abx as above (7) Diabetes mellitus Current Visit: Yes Status: Acute Assessment and Plan: started on PEG tube feeding, low dose sliding scale Q6. Will increase levemir to 15U daily (8) Dysphagia Current Visit: Yes Status: Acute Assessment and Plan: s/p PEG tube insertion 06/23, appreciate surgery input (9) Hypertension Current Visit: Yes Status: Chronic Assessment and Plan: Remains poorly controlled on Norvasc and Coreg. Will increase Coreg to 12.5 mg twice a day. When necessary hydralazine (10) DVT prophylaxis Current Visit: Yes Status: Acute Assessment and Plan: SQ heparin - Time Spent with Patient Total time spent is greater than 50% in coordination of care (as documented) at patient's floor/unit and/or counseling patient: 25 - 35 minutes Plan of Care Discussed with: patient (discussed with RN) Internal Medicine: Result - Labs CBC & Chem 7: 06/26/18 04:15 06/26/18 04:15 Labs: Short CBC 06/26/18 Range/Units 04:15 WBC 15.3 H (4.3-11.1) K/mcL Hgb 10.9 L (12.9-16.9) g/dL Hct 37.4 L (37.5-50.1) % Plt Count 263 (140-400) K/mcL Neutrophils # 13.7 H (1.6-8.9) K/mcL BMP 06/26/18 04:15 Sodium 144 Potassium 5.3 H Chloride 100 Carbon Dioxide 34 H BUN 76 H Creatinine 3.74 H Glucose 244 H Calcium 9.0 - ABG Interpretation ABG results: ABG ABG pH 7.41 pH Units (7.32-7.45) 06/23/18 05:13 ABG pCO2 58 mmHg (35-45) H 06/23/18 05:13 ABG pO2 74 mmHg (85-104) L 06/23/18 05:13 ABG O2 Saturation 94 % (95-98) L 06/23/18 05:13 Consult Discharge Plan - Plan Referrals: Zachery Regalado MD [Primary Care Provider] - (3) Right lower lobe pneumonia Qualifiers: Pneumonia type: due to unspecified organism Qualified Code(s): J18.1 - Lobar pneumonia, unspecified organism (7) Diabetes mellitus Qualifiers: Diabetes mellitus type: type 2 Diabetes mellitus shelter insulin use: without shelter use Qualified Code(s): E11.9 - Type 2 diabetes mellitus without complications (8) Dysphagia Qualifiers: Qualified Code(s): R13.10 - Dysphagia, unspecified (9) Hypertension Qualifiers: Hypertension type: essential hypertension Qualified Code(s): I10 - Essential (primary) hypertension
[2018-06-26] MEDS ORDERED: E-Z-HD (BARIUM SULF) SUSPENSION PO ONE (12:51)
[2018-06-26] MEDS ORDERED: E-Z-PAQUE (BARIUM SULF) SUSP 1 BOTTLE PO ONE (12:51)
[2018-06-26] MEDS: Ringers Solution, Lactated 1,000 ML IVC SCH (14:34)
--- NOTE | 2018-06-26 15:32 | Nephrology Progress Note ---
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 No new complaint. ROS otherwise is stable. Objective - Vital Signs Vital signs: Vital Signs Temp Pulse Resp BP Pulse Ox 06/26/18 11:06 98.0 F 84 18 172/112 95 06/26/18 07:49 18 91 06/26/18 07:11 98.0 F 72 18 181/93 95 06/26/18 05:19 97.9 F 06/26/18 04:18 97.9 F 83 17 145/98 06/26/18 04:08 22 87 06/25/18 23:22 20 91 06/25/18 23:09 170/108 06/25/18 23:04 97.9 F 69 20 168/111 97 06/25/18 20:05 173/103 06/25/18 20:03 18 95 06/25/18 19:53 98.2 F 68 16 175/100 99 06/25/18 16:35 98.1 F 80 18 143/100 94 06/25/18 15:46 18 89 Intake and Output 06/25/18 06/26/18 06/26/18 23:59 07:59 15:59 Intake Total 1475 / 1475 350 / 350 125 / 125 Output Total 590 / 590 350 / 350 350 / 350 Balance 885 / 885 0 / 0 -225 / -225 Intake: IV Fluids 1100 / 1100 100 / 100 Lactated Ringers 1,000 ML @ 75 1000 / 1000 mls/hr IVC .[id number] [facility] Rx#: [id number] Zosyn 3.375 GM In 0.9 % Sodium 100 / 100 100 / 100 Chloride (Mini-Bag +) 100 ML @ 25 mls/hr IVPB Q12H [facility] Rx#: [id number] Oral 0 / 0 Tube Feeding 125 / 125 Free Water 125 / 125 Free Water Intake Amount 250 / 250 125 / 125 125 / 125 Output: Stool 150 / 150 Catheter 590 / 590 350 / 350 200 / 200 Other: Meal NPO Percent of Meal Consumed 0% Stool Size Moderate Stool Consistency loose # Bowel Movements 2 Weight 104.4 kg Blood Glucose* 202 229 234 Patient Weight 06/26/18 23:59 Weight 104.4 kg - General Appearance General appearance: Present: well-developed, well-nourished EENT: Present: ATNC Cardiology: Present: regular rate Neurologic: Present: alert and oriented x3 - Lab 06/28/18 04:50 06/28/18 04:50 Most recent lab results ABG pH 7.41 pH Units (7.32-7.45) 06/23/18 05:13 ABG pCO2 58 mmHg (35-45) H 06/23/18 05:13 ABG pO2 74 mmHg (85-104) L 06/23/18 05:13 ABG HCO3 36 mEq/L (21-27) H 06/23/18 05:13 ABG O2 Saturation 94 % (95-98) L 06/23/18 05:13 Calcium 9.0 mg/dL (8.6-10.3) 06/26/18 04:15 Phosphorus 6.6 mg/dL (2.7-4.5) H 06/26/18 04:15 Magnesium 2.4 mg/dL (1.6-2.6) 06/25/18 04:35 Urine Creatinine 58 mg/dL 06/25/18 07:42 Urine Sodium 62.7 mEq/L 06/25/18 07:42 Consult Discharge Plan - Plan Referrals: Zachery Regalado MD [Primary Care Provider] -
[2018-06-27] MEDS: Ipratropium/Albuterol Neb 3 ML IH SCH ×6 (03:32→23:58)
[2018-06-27 03:46] LABS: Basophils # 0.1 K/mcL (0.0-0.2); Basophils % 0.3 %; Hematocrit 35.8 % (37.5-50.1); Hemoglobin 10.8 g/dL (12.9-16.9); Immature Granulocytes % 3.9 % (0-4); Lymphocytes % 6.7 %; Mean Corpuscular HGB Conc 30.2 g/dL (31.6-35.5); Mean Corpuscular Hemoglobin 28.4 pg (28.0-33.3); Mean Corpuscular Volume 94.2 fL (83.0-100.0); Mean Platelet Volume 10.5 fL (9.4-12.4); Monocytes # 0.7 K/mcL (0.0-1.3); Monocytes % 4.7 %; Neutrophils # 12.3 K/mcL (1.6-8.9); Platelet Count 212 K/mcL (140-400); Red Cell Distribution Width 14.8 % (11.5-14.5); Segmented Neutrophils % 84.4 %
[2018-06-27] MEDS: Artificial Tears SOLN 15 ML BOTTLE BOTH EYES SCH ×5 (03:49→20:34)
[2018-06-27 04:00] LABS: Calcium 8.7 mg/dL (8.6-10.3); Potassium 5.5 mEq/L (3.5-5.1)
[2018-06-27] MEDS: MethylPREDNISolone 40 MG/ML VIAL IVP SCH (05:06)
[2018-06-27] MEDS: Ringers Solution, Lactated 1,000 ML IVC SCH (05:12)
[2018-06-27] MEDS: *HR* Heparin 5,000 UNIT/ML VIAL SQ SCH ×3 (05:12→20:34)
[2018-06-27] MEDS: Budesonide Neb 0.5 MG/2 ML IH SCH ×2 (07:25→19:37)
[2018-06-27] MEDS: Piperacillin/Tazobactam 3.375 GM in 0.9 % Sodium Chloride Mini Bag 100 ML IVPB SCH ×2 (09:10→20:33)
[2018-06-27] MEDS: clonazePAM 1 MG TABLET GTUBE SCH ×2 (09:16→20:34)
[2018-06-27] MEDS: amLODIPine 5 MG TABLET GTUBE SCH (09:16)
[2018-06-27] MEDS: Ferrous Sulfate Oral Soln 300 MG/5 ML UDC GTUBE SCH (09:17)
[2018-06-27] MEDS: Insulin LISPRO 300 UNITS/3 ML VIAL SQ SCH ×3 (09:18→17:10)
[2018-06-27] MEDS: Chlorhexidine Rinse 15 ML MOUTHWASH MM SCH ×2 (09:19→20:23)
[2018-06-27] MEDS: Insulin DETEMIR 100 UNIT/ML X5UNITS SQ SCH (09:20)
--- NOTE | 2018-06-27 11:28 | Internal Med Progress Note ---
Hospitalist Progress Note - Encounter Date of Encounter: 06/27/18 Time of Encounter: 08:30 - Subjective Interval History: Had an episode of desaturation yesterday which was likely due to mucus plugging as he improved after being deep suctioned multiple times and CPAP transiently. Otherwise, no fever overnight and continues to make decent amount of urine.. - Exam Vitals: Temp Pulse Resp BP Pulse Ox 97.9 F 88 88 146/82 90 06/27/18 07:49 06/27/18 07:49 06/27/18 11:13 06/27/18 09:15 06/27/18 11:13 Exam: General appearance: no acute distress Pulmonary: on trach collar, bilateral rhonchi with slight wheezing but overall improved Cardiovascular: regular rate and rhythm Gastrointestinal: soft, non-tender. PEG tube site appears unremarkable Musculoskeletal: no deformities Neuro: non-focal exam - Assessment and Plan (1) Acute on chronic respiratory failure with hypoxia and hypercapnia Current Visit: Yes Status: Acute Assessment and Plan: due to RLL PNA, on chronic trach tolerating trach mask well for the most part but does require intermittent CPAP and deep suctioning Continue with bronchopulmonary hygiene covering for hospital associated organisms as well as aspiration episode, continue Zosyn D6 (2) LUNA (acute kidney injury) Current Visit: Yes Status: Acute Assessment and Plan: likely due to ATN from septic shock UOP ~ 850ml, Cr trending down, K mildly elevated at 5.5 despite 1 dose of kayexalate retroperitoneal US on 06/21 was unremarkable CPK normal, urine eosinophils 0 LINDA-i on hold d/c IVF, 1 more dose of kayexalate nephrology input appreciated renally dosed abx (3) Right lower lobe pneumonia Current Visit: No Status: Acute Assessment and Plan: strep/legionella ag -ve, abx as above (4) COPD exacerbation Current Visit: Yes Status: Acute Assessment and Plan: was on stress dose steroids with hydrocortisone due to septic shock and chronic steroid dependence switched to solumedrol on 06/24, will transition to PO steroids today and taper back to his home dose of 20mg over 2 weeks continue bronchodilators and bronchopulmonary hygiene. abx as per PNA (5) Adrenal insufficiency Current Visit: Yes Status: Acute Assessment and Plan: steroid as above (6) Septic shock Current Visit: Yes Status: Resolved Assessment and Plan: resolved, off pressors abx as above (7) Diabetes mellitus Current Visit: Yes Status: Acute Assessment and Plan: switch sliding scale to AC+HS as he passed MBS, continue basal insulin (8) Dysphagia Current Visit: Yes Status: Acute Assessment and Plan: passed MBS, for PO diet (9) Hypertension Current Visit: Yes Status: Chronic Assessment and Plan: will increase norvasc to 10mg, continue Coreg 12.5 mg twice a day. When necessary hydralazine (10) DVT prophylaxis Current Visit: Yes Status: Acute Assessment and Plan: SQ heparin - Summary of Assessment and Plan Summary of Assessment and Plan: Will discuss with CM/SW regarding Select referral - Time Spent with Patient Total time spent is greater than 50% in coordination of care (as documented) at patient's floor/unit and/or counseling patient: Plan of Care Discussed with: patient (discussed with RN, CM, and SW in great detail) Internal Medicine: Result - Labs CBC & Chem 7: 06/27/18 03:26 06/27/18 03:26 Labs: Short CBC 06/27/18 Range/Units 03:26 WBC 14.6 H (4.3-11.1) K/mcL Hgb 10.8 L (12.9-16.9) g/dL Hct 35.8 L (37.5-50.1) % Plt Count 212 (140-400) K/mcL Neutrophils # 12.3 H (1.6-8.9) K/mcL BMP 06/27/18 03:26 Sodium 143 Potassium 5.5 H Chloride 102 Carbon Dioxide 34 H BUN 85 H Creatinine 3.54 H Glucose 240 H Calcium 8.7 - ABG Interpretation ABG results: ABG ABG pH 7.41 pH Units (7.32-7.45) 06/23/18 05:13 ABG pCO2 58 mmHg (35-45) H 06/23/18 05:13 ABG pO2 74 mmHg (85-104) L 06/23/18 05:13 ABG O2 Saturation 94 % (95-98) L 06/23/18 05:13 - Impressions Impressions Videofluoroscopic Swallow 06/26/18 10:09 IMPRESSION: No evidence of laryngeal penetration or aspiration. Please see separate speech pathology report for full discussion of findings and recommendations. D/ / Rip Walton MD / Rip Walton MD Interpreting Provider: Rip Walton MD Consult Discharge Plan - Plan Referrals: Zachery Regalado MD [Primary Care Provider] - (3) Right lower lobe pneumonia Qualifiers: Pneumonia type: due to unspecified organism Qualified Code(s): J18.1 - Lobar pneumonia, unspecified organism (7) Diabetes mellitus Qualifiers: Diabetes mellitus type: type 2 Diabetes mellitus assisted insulin use: without assisted use Qualified Code(s): E11.9 - Type 2 diabetes mellitus without complications (8) Dysphagia Qualifiers: Qualified Code(s): R13.10 - Dysphagia, unspecified (9) Hypertension Qualifiers: Hypertension type: essential hypertension Qualified Code(s): I10 - Essential (primary) hypertension
[2018-06-27] MEDS: predniSONE 20 MG TABLET PO SCH (11:52)
[2018-06-27] MEDS: *HR* HYDROcodone/Acet 5/325 mg TABLET GTUBE PRN (20:58)
[2018-06-28] MEDS: Artificial Tears SOLN 15 ML BOTTLE BOTH EYES SCH ×7 (00:12→23:41)
[2018-06-28] MEDS: *HR* HYDROcodone/Acet 5/325 mg TABLET GTUBE PRN (03:46)
[2018-06-28] MEDS: Ipratropium/Albuterol Neb 3 ML IH SCH ×6 (03:47→23:58)
[2018-06-28] MEDS: Dexmedetomidine HCl 400 MCG/100 ML MLS IVC SCH (04:32)
[2018-06-28 05:18] LABS: Basophils # 0.1 K/mcL (0.0-0.2); Basophils % 0.4 %; Hematocrit 32.8 % (37.5-50.1); Immature Granulocytes % 3.6 % (0-4); Lymphocytes # 1.4 K/mcL (0.6-4.6); Lymphocytes % 10.3 %; Mean Corpuscular HGB Conc 30.5 g/dL (31.6-35.5); Mean Corpuscular Hemoglobin 28.6 pg (28.0-33.3); Mean Corpuscular Volume 93.7 fL (83.0-100.0); Mean Platelet Volume 10.3 fL (9.4-12.4); Monocytes % 7.7 %; Neutrophils # 10.5 K/mcL (1.6-8.9); Platelet Count 208 K/mcL (140-400); Red Cell Distribution Width 14.8 % (11.5-14.5)
[2018-06-28 05:33] LABS: Calcium 8.8 mg/dL (8.6-10.3); Potassium 4.3 mEq/L (3.5-5.1)
[2018-06-28] MEDS: *HR* Heparin 5,000 UNIT/ML VIAL SQ SCH ×3 (05:44→20:59)
[2018-06-28] MEDS: Budesonide Neb 0.5 MG/2 ML IH SCH ×2 (07:49→20:22)
--- NOTE | 2018-06-28 08:19 | Nephrology Progress Note ---
Date of Encounter: 06/27/18 Time of Encounter: 10:13 - Assessment and Plan (1) LUNA (acute kidney injury) Current Visit: Yes Status: Acute Renal function starting to improve. Continue current management. I anticipate recovery. (2) Diabetes mellitus Current Visit: Yes Status: Acute Qualifiers: Diabetes mellitus type: type 2 Diabetes mellitus exterminator insulin use: without exterminator use Qualified Code(s): E11.9 - Type 2 diabetes mellitus without complications Subjective Principal diagnosis: Pneumonia Interval history: Patient seen and evaluated. No new complaint. ROS otherwise is stable. Objective - Vital Signs Vital signs: Vital Signs Temp Pulse Resp BP Pulse Ox 06/28/18 07:49 18 89 06/28/18 07:45 97.3 F L 83 19 158/108 89 06/28/18 03:47 18 96 06/28/18 03:38 98.1 F 82 20 172/85 95 06/27/18 23:58 18 93 06/27/18 23:46 97.9 F 82 22 143/73 06/27/18 20:08 98.1 F 87 16 140/80 92 06/27/18 19:37 22 163/95 95 06/27/18 17:20 96 06/27/18 17:07 98.0 F 101 16 163/95 96 06/27/18 16:08 16 93 06/27/18 11:42 97.7 F 87 16 156/93 93 06/27/18 11:13 88 90 06/27/18 11:03 88 90 06/27/18 09:15 146/82 Intake and Output 06/27/18 06/28/18 06/28/18 23:59 07:59 15:59 Intake Total 1250 / 1250 Output Total 550 / 550 Balance -550 / -550 1250 / 1250 Intake: IV Fluids 1100 / 1100 Zosyn 3.375 GM In 0.9 % Sodium 100 / 100 Chloride (Mini-Bag +) 100 ML @ 25 mls/hr IVPB Q12H [facility] Rx#: [id number] Free Water 150 / 150 Output: Catheter 550 / 550 Other: Stool Size Large Stool Consistency soft # Bowel Movements 1 Weight 108.9 kg Blood Glucose* 273 156 Patient Weight 06/28/18 23:59 Weight 108.9 kg - General Appearance General appearance: Present: well-developed, well-nourished EENT: Present: ATNC Cardiology: Present: regular rate - Lab 06/28/18 04:50 06/28/18 04:50 Most recent lab results ABG pH 7.41 pH Units (7.32-7.45) 06/23/18 05:13 ABG pCO2 58 mmHg (35-45) H 06/23/18 05:13 ABG pO2 74 mmHg (85-104) L 06/23/18 05:13 ABG HCO3 36 mEq/L (21-27) H 06/23/18 05:13 ABG O2 Saturation 94 % (95-98) L 06/23/18 05:13 Calcium 8.8 mg/dL (8.6-10.3) 06/28/18 04:50 Phosphorus 6.6 mg/dL (2.7-4.5) H 06/26/18 04:15 Magnesium 2.4 mg/dL (1.6-2.6) 06/25/18 04:35 Urine Creatinine 58 mg/dL 06/25/18 07:42 Urine Sodium 62.7 mEq/L 06/25/18 07:42 Consult Discharge Plan - Plan Referrals: Zachery Regalado MD [Primary Care Provider] -
[2018-06-28] MEDS: Ferrous Sulfate Oral Soln 300 MG/5 ML UDC GTUBE SCH (08:48)
[2018-06-28] MEDS: Chlorhexidine Rinse 15 ML MOUTHWASH MM SCH ×2 (08:48→21:01)
[2018-06-28] MEDS: amLODIPine 5 MG TABLET GTUBE SCH (08:49)
[2018-06-28] MEDS: clonazePAM 1 MG TABLET GTUBE SCH ×2 (08:49→21:00)
[2018-06-28] MEDS: predniSONE 20 MG TABLET PO SCH (08:49)
[2018-06-28] MEDS: Insulin LISPRO 300 UNITS/3 ML VIAL SQ SCH ×3 (08:49→17:34)
[2018-06-28] MEDS: Piperacillin/Tazobactam 3.375 GM in 0.9 % Sodium Chloride Mini Bag 100 ML IVPB SCH ×2 (08:50→20:59)
[2018-06-28] MEDS: Insulin DETEMIR 100 UNIT/ML X5UNITS SQ SCH (08:50)
--- NOTE | 2018-06-28 12:01 | Nephrology Progress Note ---
Date of Encounter: 06/28/18 Time of Encounter: 09:45 - Assessment and Plan (1) LNUA (acute kidney injury) Current Visit: Yes Status: Acute Nonoliguric and and trending better. No indicatins for [employer] at this this, but continue to follow a renal protective and conservative strategy. Thank you. Subjective Principal diagnosis: Pneumonia Interval history: The patient was seen and examined in his 2N room. He had his trach in, and was unable to vocalize out loud, though he mouthed that he was feeling okay and did not affirm recent nausea or vomiting. He was able to eat his breakfast today, he affirmed. Objective - Vital Signs Vital signs: Vital Signs Temp Pulse Resp BP Pulse Ox 06/28/18 11:18 98.3 F 82 18 135/90 90 06/28/18 11:16 18 92 06/28/18 07:49 18 89 06/28/18 07:45 97.3 F L 83 19 158/108 89 06/28/18 03:47 18 96 06/28/18 03:38 98.1 F 82 20 172/85 95 06/27/18 23:58 18 93 06/27/18 23:46 97.9 F 82 22 143/73 06/27/18 20:08 98.1 F 87 16 140/80 92 06/27/18 19:37 22 163/95 95 06/27/18 17:20 96 06/27/18 17:07 98.0 F 101 16 163/95 96 06/27/18 16:08 16 93 Intake and Output 06/27/18 06/28/18 06/28/18 23:59 07:59 15:59 Intake Total 1250 / 1250 1200 / 1200 Output Total 550 / 550 550 / 550 Balance -550 / -550 1250 / 1250 650 / 650 Intake: IV Fluids 1100 / 1100 Zosyn 3.375 GM In 0.9 % Sodium 100 / 100 Chloride (Mini-Bag +) 100 ML @ 25 mls/hr IVPB Q12H [facility] Rx#: [id number] Oral 840 / 840 Free Water 150 / 150 120 / 120 Free Water Intake Amount 240 / 240 Output: Catheter 550 / 550 550 / 550 Other: Meal Breakfast Percent of Meal Consumed 50% Stool Size Large Stool Consistency soft # Bowel Movements 1 Weight 108.9 kg Blood Glucose* 273 156 251 Patient Weight 06/28/18 23:59 Weight 108.9 kg - General Appearance General appearance: Present: well-developed, well-nourished, chronically ill EENT: Present: ATNC, mucous membranes moist Neck: Present: supple (Trach noted) Respiratory: Present: course breath sounds Cardiology: Present: edema (trace nonpitting b/l edema), normal S1, normal S2 Gastrointestinal: Present: normoactive bowel sounds, no tenderness Integumentary: Present: warm and dry Neurologic: Present: no focal deficit Musculoskeletal: Present: no deformities Psychiatric: Present: mood/affect appropriate, cooperative - Lab 06/28/18 04:50 06/28/18 04:50 Most recent lab results ABG pH 7.41 pH Units (7.32-7.45) 06/23/18 05:13 ABG pCO2 58 mmHg (35-45) H 06/23/18 05:13 ABG pO2 74 mmHg (85-104) L 06/23/18 05:13 ABG HCO3 36 mEq/L (21-27) H 06/23/18 05:13 ABG O2 Saturation 94 % (95-98) L 06/23/18 05:13 Calcium 8.8 mg/dL (8.6-10.3) 06/28/18 04:50 Phosphorus 6.6 mg/dL (2.7-4.5) H 06/26/18 04:15 Magnesium 2.4 mg/dL (1.6-2.6) 06/25/18 04:35 Urine Creatinine 58 mg/dL 06/25/18 07:42 Urine Sodium 62.7 mEq/L 06/25/18 07:42 - Imaging Kidney/bladder ultrasound: report reviewed (no hydronephrosis) Consult Discharge Plan - Plan Referrals: Zachery Regalado MD [Primary Care Provider] -
--- NOTE | 2018-06-28 13:16 | Internal Med Progress Note ---
Hospitalist Progress Note - Encounter Date of Encounter: 06/28/18 Time of Encounter: 08:45 - Subjective Interval History: No acute events overnight, continues to require high flow of O2 with [place]. UOP improving to 1350ml yesterday. Sputum culture growing GPR. - Exam Vitals: Temp Pulse Resp BP Pulse Ox 98.3 F 82 18 135/90 90 06/28/18 11:18 06/28/18 11:18 06/28/18 11:18 06/28/18 11:18 06/28/18 11:18 Exam: General appearance: no acute distress Pulmonary: on trach collar, bilateral rhonchi with slight wheezing but overall improved Cardiovascular: regular rate and rhythm Gastrointestinal: soft, non-tender. PEG tube site appears unremarkable Musculoskeletal: no deformities Neuro: non-focal exam - Assessment and Plan (1) Acute on chronic respiratory failure with hypoxia and hypercapnia Current Visit: Yes Status: Acute Assessment and Plan: due to RLL PNA, on chronic trach continues to require intermittent CPAP, deep suctioning, and high flow O2 Continue with bronchopulmonary hygiene covering for hospital associated organisms as well as aspiration episode, continue Zosyn D7, aim for 10-14 days depending his clinical course (2) LUNA (acute kidney injury) Current Visit: Yes Status: Acute Assessment and Plan: likely due to ATN from septic shock UOP ~ 1350ml yesterday, Cr trending down, K also normalized with 1 dose of kayexalate retroperitoneal US on 06/21 was unremarkable CPK normal, urine eosinophils 0 LINDA-i on hold anticipate eventual renal recovery, follow with Nephrology renally dosed abx (3) Right lower lobe pneumonia Current Visit: No Status: Acute Assessment and Plan: strep/legionella ag -ve, abx as above (4) COPD exacerbation Current Visit: Yes Status: Acute Assessment and Plan: was on stress dose steroids with hydrocortisone due to septic shock and chronic steroid dependence switched to solumedrol on 06/24, transition to PO steroids 06/27. Taper back to his home dose of 20mg over 2 weeks continue bronchodilators and bronchopulmonary hygiene. abx as per PNA (5) Adrenal insufficiency Current Visit: Yes Status: Acute Assessment and Plan: steroid as above (6) Septic shock Current Visit: Yes Status: Resolved Assessment and Plan: resolved, off pressors abx as above (7) Diabetes mellitus Current Visit: Yes Status: Acute Assessment and Plan: switch sliding scale to AC+HS as he passed MBS, increase basal insulin to 20U (8) Dysphagia Current Visit: Yes Status: Acute Assessment and Plan: passed MBS, for PO diet (9) Hypertension Current Visit: Yes Status: Chronic Assessment and Plan: Continue norvasc 10mg, increase Coreg to 25mg twice a day. When necessary hydralazine (10) DVT prophylaxis Current Visit: Yes Status: Acute Assessment and Plan: SQ heparin - Time Spent with Patient Total time spent is greater than 50% in coordination of care (as documented) at patient's floor/unit and/or counseling patient: 25 - 35 minutes Plan of Care Discussed with: patient (discussed in case management round in great detail) Internal Medicine: Result - Labs CBC & Chem 7: 06/28/18 04:50 06/28/18 04:50 Labs: Short CBC 06/28/18 Range/Units 04:50 WBC 13.4 H (4.3-11.1) K/mcL Hgb 10.0 L (12.9-16.9) g/dL Hct 32.8 L (37.5-50.1) % Plt Count 208 (140-400) K/mcL Neutrophils # 10.5 H (1.6-8.9) K/mcL BMP 06/28/18 04:50 Sodium 143 Potassium 4.3 Chloride 104 Carbon Dioxide 33 H BUN 81 H Creatinine 3.24 H Glucose 212 H Calcium 8.8 - ABG Interpretation ABG results: ABG ABG pH 7.41 pH Units (7.32-7.45) 06/23/18 05:13 ABG pCO2 58 mmHg (35-45) H 06/23/18 05:13 ABG pO2 74 mmHg (85-104) L 06/23/18 05:13 ABG O2 Saturation 94 % (95-98) L 06/23/18 05:13 Consult Discharge Plan - Plan Referrals: Zachery Regalado MD [Primary Care Provider] - (3) Right lower lobe pneumonia Qualifiers: Pneumonia type: due to unspecified organism Qualified Code(s): J18.1 - Lobar pneumonia, unspecified organism (7) Diabetes mellitus Qualifiers: Diabetes mellitus type: type 2 Diabetes mellitus prison insulin use: without prison use Qualified Code(s): E11.9 - Type 2 diabetes mellitus without complications (8) Dysphagia Qualifiers: Qualified Code(s): R13.10 - Dysphagia, unspecified (9) Hypertension Qualifiers: Hypertension type: essential hypertension Qualified Code(s): I10 - Essential (primary) hypertension
[2018-06-28] MEDS: Mag Hydrox/Al Hydrox/Simeth 30 ML UDC PO PRN (16:15)
[2018-06-29] MEDS: Artificial Tears SOLN 15 ML BOTTLE BOTH EYES SCH ×5 (03:47→20:30)
[2018-06-29] MEDS: Ipratropium/Albuterol Neb 3 ML IH SCH ×6 (04:03→23:33)
[2018-06-29 04:25] LABS: Basophils % 0.2 %; Eosinophils % 0.1 %; Hematocrit 34.4 % (37.5-50.1); Hemoglobin 10.2 g/dL (12.9-16.9); Immature Granulocytes % 1.6 % (0-4); Lymphocytes # 1.8 K/mcL (0.6-4.6); Lymphocytes % 12.7 %; Mean Corpuscular HGB Conc 29.7 g/dL (31.6-35.5); Mean Corpuscular Hemoglobin 28.3 pg (28.0-33.3); Mean Corpuscular Volume 95.3 fL (83.0-100.0); Monocytes # 0.9 K/mcL (0.0-1.3); Monocytes % 6.7 %; Neutrophils # 10.9 K/mcL (1.6-8.9); Platelet Count 189 K/mcL (140-400); Red Blood Count 3.61 M/mcL (4.19-5.50); Red Cell Distribution Width 14.8 % (11.5-14.5); Segmented Neutrophils % 78.7 %
[2018-06-29 04:43] LABS: Potassium 4.7 mEq/L (3.5-5.1)
[2018-06-29] MEDS: *HR* Heparin 5,000 UNIT/ML VIAL SQ SCH ×3 (05:35→20:28)
[2018-06-29] MEDS: Budesonide Neb 0.5 MG/2 ML IH SCH ×2 (07:55→19:41)
[2018-06-29] MEDS: amLODIPine 5 MG TABLET GTUBE SCH (08:30)
[2018-06-29] MEDS: predniSONE 20 MG TABLET PO SCH (08:31)
[2018-06-29] MEDS: clonazePAM 1 MG TABLET GTUBE SCH ×2 (08:31→20:28)
[2018-06-29] MEDS: Chlorhexidine Rinse 15 ML MOUTHWASH MM SCH ×2 (08:31→20:32)
[2018-06-29] MEDS: Piperacillin/Tazobactam 3.375 GM in 0.9 % Sodium Chloride Mini Bag 100 ML IVPB SCH ×2 (08:31→20:29)
[2018-06-29] MEDS: Ferrous Sulfate Oral Soln 300 MG/5 ML UDC GTUBE SCH (08:31)
[2018-06-29] MEDS: Insulin LISPRO 300 UNITS/3 ML VIAL SQ SCH ×4 (08:33→20:32)
[2018-06-29] MEDS: Insulin DETEMIR 100 UNIT/ML X5UNITS SQ SCH (08:42)
[2018-06-29] MEDS: *HR* HYDROcodone/Acet 5/325 mg TABLET GTUBE PRN (09:12)
--- NOTE | 2018-06-29 10:36 | Nephrology Progress Note ---
Date of Encounter: 06/29/18 Time of Encounter: 09:00 - Assessment and Plan (1) LUNA (acute kidney injury) Current Visit: Yes Status: Acute Nonoliguric and and roughly stable. No indicatins for [employer] at this this, but continue to follow a renal protective and conservative strategy: strict I/Os, daily weights, avoidance of nephrotoxins as able and renal dosing. Thank you. Subjective Principal diagnosis: Pneumonia Interval history: The patient was seen and examined in his 2N room earlier today. He again had his trach in, and was unable to vocalize out loud. His floor RN or RT was present at the time. He did not affirm N/V/D. Objective - Vital Signs Vital signs: Vital Signs Temp Pulse Resp BP Pulse Ox 06/29/18 07:56 18 95 06/29/18 07:19 97.9 F 77 18 195/99 95 06/29/18 04:31 97.8 F 77 20 153/81 94 06/29/18 04:05 14 94 06/29/18 00:00 14 96 06/28/18 23:51 167/92 06/28/18 23:23 98.4 F 73 18 169/108 97 06/28/18 20:26 16 93 06/28/18 18:52 98.4 F 78 18 169/94 92 06/28/18 16:38 98.0 F 88 18 172/84 90 06/28/18 16:08 18 92 06/28/18 11:18 98.3 F 82 18 135/90 90 06/28/18 11:16 18 92 Intake and Output 06/28/18 06/29/18 06/29/18 23:59 07:59 15:59 Intake Total 100 / 100 480 / 480 Output Total 600 / 600 200 / 200 Balance -600 / -600 -100 / -100 480 / 480 Intake: IV Fluids 100 / 100 Zosyn 3.375 GM In 0.9 % Sodium 100 / 100 Chloride (Mini-Bag +) 100 ML @ 25 mls/hr IVPB Q12H [facility] Rx#: [id number] Oral 360 / 360 Free Water Intake Amount 120 / 120 Output: Catheter 600 / 600 200 / 200 Urethral ([place]) 350 / 350 Other: Meal Breakfast Percent of Meal Consumed 100% Stool Size Moderate Moderate Stool Consistency loose loose Stool Characteristics Normal for Patient Stool Color Brown Brown # Bowel Movements 1 1 Weight 109.9 kg Blood Glucose* 190 166 Patient Weight 06/29/18 23:59 Weight 109.9 kg - General Appearance General appearance: Present: well-developed, well-nourished, cachectic EENT: Present: ATNC, mucous membranes moist Neck: Present: supple Respiratory: Present: course breath sounds Cardiology: Present: edema (puffy nonpiting edema b/l UEs and LEs), regular rate, regular rhythm, normal S1, normal S2 Gastrointestinal: Present: normoactive bowel sounds, obese Integumentary: Present: warm and dry Neurologic: Present: no focal deficit, no asterixis Musculoskeletal: Present: no cyanosis Psychiatric: Present: mood/affect appropriate, cooperative - Lab 06/29/18 04:09 06/29/18 04:09 Most recent lab results ABG pH 7.41 pH Units (7.32-7.45) 06/23/18 05:13 ABG pCO2 58 mmHg (35-45) H 06/23/18 05:13 ABG pO2 74 mmHg (85-104) L 06/23/18 05:13 ABG HCO3 36 mEq/L (21-27) H 06/23/18 05:13 ABG O2 Saturation 94 % (95-98) L 06/23/18 05:13 Calcium 9.0 mg/dL (8.6-10.3) 06/29/18 04:09 Phosphorus 6.6 mg/dL (2.7-4.5) H 06/26/18 04:15 Magnesium 2.4 mg/dL (1.6-2.6) 06/25/18 04:35 Urine Creatinine 58 mg/dL 06/25/18 07:42 Urine Sodium 62.7 mEq/L 06/25/18 07:42 Consult Discharge Plan - Plan Referrals: Zachery Regalado MD [Primary Care Provider] -
[2018-06-29] MEDS: cloNIDine HCl 0.1 MG TABLET PO SCH ×2 (10:58→20:28)
--- NOTE | 2018-06-29 12:42 | Internal Med Progress Note ---
Hospitalist Progress Note - Encounter Date of Encounter: 06/29/18 Time of Encounter: 10:00 - Subjective Interval History: No acute events overnight. Patient again refused to be transferred to LTAC. Reports no issue with his breathing but persistently remains on high flow. - Exam Vitals: Temp Pulse Resp BP Pulse Ox 97.8 F 81 20 145/66 85 06/29/18 12:20 06/29/18 12:26 06/29/18 12:20 06/29/18 12:20 06/29/18 12:20 Exam: General appearance: no acute distress Pulmonary: on trach collar, bilateral rhonchi R>L but overall improved Cardiovascular: regular rate and rhythm Gastrointestinal: soft, non-tender. PEG tube site appears unremarkable Musculoskeletal: no deformities Neuro: non-focal exam - Assessment and Plan (1) Acute on chronic respiratory failure with hypoxia and hypercapnia Current Visit: Yes Status: Acute Assessment and Plan: due to RLL PNA, on chronic trach continues to require intermittent CPAP, deep suctioning, and high flow O2 Continue with bronchopulmonary hygiene check CXR covering for hospital associated organisms as well as aspiration episode, continue Zosyn D8, aim for 10-14 days depending his clinical course (2) LUNA (acute kidney injury) Current Visit: Yes Status: Acute Assessment and Plan: likely due to ATN from septic shock nonoliguric, Cr stable around 3.5, K normalized retroperitoneal US on 06/21 was unremarkable CPK normal, urine eosinophils 0 LINDA-i on hold anticipate eventual renal recovery, follow with Nephrology renally dosed abx (3) Right lower lobe pneumonia Current Visit: No Status: Acute Assessment and Plan: strep/legionella ag -ve, abx as above (4) COPD exacerbation Current Visit: Yes Status: Acute Assessment and Plan: was on stress dose steroids with hydrocortisone due to septic shock and chronic steroid dependence switched to solumedrol on 06/24, transition to PO steroids 06/27. Taper back to his home dose of 20mg over 2 weeks continue bronchodilators and bronchopulmonary hygiene. abx as per PNA (5) Adrenal insufficiency Current Visit: Yes Status: Acute Assessment and Plan: steroid as above (6) Septic shock Current Visit: Yes Status: Resolved Assessment and Plan: resolved, off pressors abx as above (7) Diabetes mellitus Current Visit: Yes Status: Acute Assessment and Plan: continue basal bolus insulin but increase sliding scale to moderate dose (8) Dysphagia Current Visit: Yes Status: Acute Assessment and Plan: passed MBS, for PO diet (9) Hypertension Current Visit: Yes Status: Chronic Assessment and Plan: Continue norvasc 10mg and Coreg to 25mg twice a day. Add clonidine 0.1mg BID COntinue PRN hydralazine (10) DVT prophylaxis Current Visit: Yes Status: Acute Assessment and Plan: SQ heparin - Time Spent with Patient Total time spent is greater than 50% in coordination of care (as documented) at patient's floor/unit and/or counseling patient: 25 - 35 minutes Plan of Care Discussed with: patient (discussed with RN) Internal Medicine: Result - Labs CBC & Chem 7: 06/29/18 04:09 06/29/18 04:09 Labs: Short CBC 06/29/18 Range/Units 04:09 WBC 13.9 H (4.3-11.1) K/mcL Hgb 10.2 L (12.9-16.9) g/dL Hct 34.4 L (37.5-50.1) % Plt Count 189 (140-400) K/mcL Neutrophils # 10.9 H (1.6-8.9) K/mcL BMP 06/29/18 04:09 Sodium 144 Potassium 4.7 Chloride 105 Carbon Dioxide 36 H BUN 80 H Creatinine 3.64 H Glucose 137 H Calcium 9.0 - ABG Interpretation ABG results: ABG ABG pH 7.41 pH Units (7.32-7.45) 06/23/18 05:13 ABG pCO2 58 mmHg (35-45) H 06/23/18 05:13 ABG pO2 74 mmHg (85-104) L 06/23/18 05:13 ABG O2 Saturation 94 % (95-98) L 06/23/18 05:13 - Impressions Impressions Chest X-Ray 06/29/18 10:32 IMPRESSION: Increasing small bilateral pleural effusions with some dependent bibasilar opacification, atelectasis versus infiltrate. No overt failure. D/ / Chad Hauser MD / Chad Hauser MD Interpreting Provider: Chad Hauser MD Consult Discharge Plan - Plan Referrals: Zachery Regalado MD [Primary Care Provider] - ____ (3) Right lower lobe pneumonia Qualifiers: Pneumonia type: due to unspecified organism Qualified Code(s): J18.1 - Lobar pneumonia, unspecified organism (7) Diabetes mellitus Qualifiers: Diabetes mellitus type: type 2 Diabetes mellitus snf insulin use: without snf use Qualified Code(s): E11.9 - Type 2 diabetes mellitus without complications (8) Dysphagia Qualifiers: Qualified Code(s): R13.10 - Dysphagia, unspecified (9) Hypertension Qualifiers: Hypertension type: essential hypertension Qualified Code(s): I10 - Essential (primary) hypertension
[2018-06-30] MEDS: Artificial Tears SOLN 15 ML BOTTLE BOTH EYES SCH ×6 (00:12→20:25)
[2018-06-30] MEDS: *HR* HYDROcodone/Acet 5/325 mg TABLET GTUBE PRN ×2 (02:15→13:55)
[2018-06-30] MEDS: Ipratropium/Albuterol Neb 3 ML IH SCH ×6 (04:00→23:52)
[2018-06-30] MEDS: *HR* Heparin 5,000 UNIT/ML VIAL SQ SCH ×3 (04:37→20:26)
[2018-06-30 06:18] LABS: Basophils % 0.2 %; Eosinophils # 0.1 K/mcL (0.0-0.6); Eosinophils % 0.4 %; Hematocrit 32.5 % (37.5-50.1); Hemoglobin 9.7 g/dL (12.9-16.9); Immature Granulocytes % 1.8 % (0-4); Lymphocytes # 1.7 K/mcL (0.6-4.6); Lymphocytes % 14.1 %; Mean Corpuscular HGB Conc 29.8 g/dL (31.6-35.5); Mean Corpuscular Hemoglobin 28.6 pg (28.0-33.3); Mean Corpuscular Volume 95.9 fL (83.0-100.0); Mean Platelet Volume 10.4 fL (9.4-12.4); Monocytes % 8.1 %; Neutrophils # 9.2 K/mcL (1.6-8.9); Platelet Count 186 K/mcL (140-400); Red Blood Count 3.39 M/mcL (4.19-5.50); Red Cell Distribution Width 14.7 % (11.5-14.5); Segmented Neutrophils % 75.4 %
[2018-06-30 06:36] LABS: Calcium 8.7 mg/dL (8.6-10.3); Potassium 5.3 mEq/L (3.5-5.1)
[2018-06-30] MEDS: Budesonide Neb 0.5 MG/2 ML IH SCH ×2 (07:33→20:23)
[2018-06-30] MEDS: cloNIDine HCl 0.1 MG TABLET PO SCH ×2 (08:13→20:25)
[2018-06-30] MEDS: amLODIPine 5 MG TABLET GTUBE SCH (08:13)
[2018-06-30] MEDS: predniSONE 20 MG TABLET PO SCH (08:14)
[2018-06-30] MEDS: clonazePAM 1 MG TABLET GTUBE SCH ×2 (08:15→20:25)
[2018-06-30] MEDS: Insulin DETEMIR 100 UNIT/ML X5UNITS SQ SCH (08:15)
[2018-06-30] MEDS: Piperacillin/Tazobactam 3.375 GM in 0.9 % Sodium Chloride Mini Bag 100 ML IVPB SCH ×2 (08:16→20:27)
[2018-06-30] MEDS: Insulin LISPRO 300 UNITS/3 ML VIAL SQ SCH ×6 (08:20→20:26)
[2018-06-30] MEDS: Chlorhexidine Rinse 15 ML MOUTHWASH MM SCH ×2 (08:21→20:25)
[2018-06-30] MEDS: Ferrous Sulfate Oral Soln 300 MG/5 ML UDC GTUBE SCH (08:22)
--- NOTE | 2018-06-30 08:34 | Nephrology Progress Note ---
Date of Encounter: 06/30/18 Time of Encounter: 09:00 - Assessment and Plan (1) LUNA (acute kidney injury) Current Visit: Yes Status: Acute Nonoliguric and and roughly stable: consistent with ATN. 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 Thank you. (2) Hyperkalemia Current Visit: Yes Status: Acute Mild, and I recommend a renal diet that is low in K+ and Phos. Subjective Principal diagnosis: Pneumonia Interval history: The patient was seen and examined in his 2N room earlier today. Today he was able to vocalize out loud, and feeling in good spirits and he did not affirm N/V/D. Objective - Vital Signs Vital signs: Vital Signs Temp Pulse Resp BP Pulse Ox 06/30/18 07:48 97.7 F 80 18 137/93 92 06/30/18 07:34 16 93 06/30/18 04:13 98.1 F 78 18 130/103 92 06/30/18 04:01 22 91 06/29/18 23:49 98.1 F 75 18 124/95 90 06/29/18 23:33 18 94 06/29/18 19:42 16 90 06/29/18 19:12 98.1 F 78 18 98/73 90 06/29/18 16:38 87 18 148/78 89 06/29/18 15:52 18 90 06/29/18 12:26 81 06/29/18 12:20 97.8 F 81 20 145/66 85 Intake and Output 06/29/18 06/30/18 06/30/18 23:59 07:59 15:59 Intake Total 360 / 360 Output Total 700 / 700 825 / 825 Balance -340 / -340 -825 / -825 Intake: Oral 360 / 360 Output: Catheter 700 / 700 825 / 825 Other: Meal Dinner Percent of Meal Consumed 100% Stool Size Moderate Stool Consistency loose Stool Color Brown # Bowel Movements 1 Weight 112.5 kg Blood Glucose* 299 150 Patient Weight 06/30/18 23:59 Weight 112.5 kg - General Appearance Exam: General appearance: Present: well-developed, well-nourished, cachectic EENT: Present: ATNC, mucous membranes moist Neck: Present: supple Respiratory: Present: course breath sounds Cardiology: Present: edema (stable puffy nonpiting edema b/l UEs and LEs), regular rate, regular rhythm, normal S1, normal S2 Gastrointestinal: Present: normoactive bowel sounds, obese Integumentary: Present: warm and dry Neurologic: Present: no focal deficit, no asterixis Musculoskeletal: Present: no cyanosis Psychiatric: Present: mood/affect appropriate, cooperative - Lab 06/30/18 06:00 06/30/18 06:00 Most recent lab results ABG pH 7.41 pH Units (7.32-7.45) 06/23/18 05:13 ABG pCO2 58 mmHg (35-45) H 06/23/18 05:13 ABG pO2 74 mmHg (85-104) L 06/23/18 05:13 ABG HCO3 36 mEq/L (21-27) H 06/23/18 05:13 ABG O2 Saturation 94 % (95-98) L 06/23/18 05:13 Calcium 8.7 mg/dL (8.6-10.3) 06/30/18 06:00 Phosphorus 6.6 mg/dL (2.7-4.5) H 06/26/18 04:15 Magnesium 2.4 mg/dL (1.6-2.6) 06/25/18 04:35 Urine Creatinine 58 mg/dL 06/25/18 07:42 Urine Sodium 62.7 mEq/L 06/25/18 07:42 Consult Discharge Plan - Plan Referrals: Zachery Regalado MD [Primary Care Provider] -
--- NOTE | 2018-06-30 11:23 | Internal Med Progress Note ---
Hospitalist Progress Note - Encounter Date of Encounter: 06/30/18 Time of Encounter: 08:15 - Subjective Interval History: No acute events overnight. Blood pressure appears to be better control. No fever/chills. Denies any shortness of breath or worsening secretions from the tracheostomy but continues to require high flow oxygen. No leg swelling. - Exam Vitals: Temp Pulse Resp BP Pulse Ox 97.7 F 80 16 137/93 94 06/30/18 07:48 06/30/18 07:48 06/30/18 11:01 06/30/18 07:48 06/30/18 11:01 Exam: General appearance: no acute distress Pulmonary: on trach collar, mostly clear to auscultation with decreased breath sound on R lung base Cardiovascular: regular rate and rhythm Gastrointestinal: soft, non-tender. PEG tube site appears unremarkable Musculoskeletal: no deformities Neuro: non-focal exam - Assessment and Plan (1) Acute on chronic respiratory failure with hypoxia and hypercapnia Current Visit: Yes Status: Acute Assessment and Plan: due to RLL PNA, on chronic trach continues to require high flow O2 CXR yesterday showed slightly increased R effusion but otherwise unchanged Continue with bronchopulmonary hygiene covering for hospital associated organisms as well as aspiration episode, continue Zosyn D9, aim for 10-14 days depending his clinical course check LE doppler, unable to perform CTA due to LUNA consider pulm consult tomorrow (2) LUNA (acute kidney injury) Current Visit: Yes Status: Acute Assessment and Plan: likely due to ATN from septic shock nonoliguric, Cr plateaued around 3.2, K slightly high at 5.3 retroperitoneal US on 06/21 was unremarkable CPK normal, urine eosinophils 0 LINDA-i on hold 1 dose of kayexalate, renal diet anticipate eventual renal recovery, follow with Nephrology renally dosed abx (3) Right lower lobe pneumonia Current Visit: No Status: Acute Assessment and Plan: strep/legionella ag -ve, abx as above (4) COPD exacerbation Current Visit: Yes Status: Acute Assessment and Plan: was on stress dose steroids with hydrocortisone due to septic shock and chronic steroid dependence switched to solumedrol on 06/24, transition to PO steroids 06/27. Taper back to his home dose of 20mg over 2 weeks continue bronchodilators and bronchopulmonary hygiene. abx as per PNA (5) Adrenal insufficiency Current Visit: Yes Status: Acute Assessment and Plan: steroid as above (6) Septic shock Current Visit: Yes Status: Resolved Assessment and Plan: resolved, off pressors abx as above (7) Diabetes mellitus Current Visit: Yes Status: Acute Assessment and Plan: continue basal bolus insulin and moderate dose sliding scale add 10U lispro TIDmeals (8) Dysphagia Current Visit: Yes Status: Acute Assessment and Plan: passed MBS, for PO diet (9) Hypertension Current Visit: Yes Status: Chronic Assessment and Plan: Continue norvasc 10mg and Coreg to 25mg twice a day. Clonidine 0.1mg BID added yesterday with improving BP control COntinue PRN hydralazine (10) DVT prophylaxis Current Visit: Yes Status: Acute Assessment and Plan: SQ heparin - Time Spent with Patient Total time spent is greater than 50% in coordination of care (as documented) at patient's floor/unit and/or counseling patient: 25 - 35 minutes Plan of Care Discussed with: patient (discussed with RT as well) Internal Medicine: Result - Labs CBC & Chem 7: 06/30/18 06:00 06/30/18 06:00 Labs: Short CBC 06/30/18 Range/Units 06:00 WBC 12.2 H (4.3-11.1) K/mcL Hgb 9.7 L (12.9-16.9) g/dL Hct 32.5 L (37.5-50.1) % Plt Count 186 (140-400) K/mcL Neutrophils # 9.2 H (1.6-8.9) K/mcL BMP 06/30/18 06:00 Sodium 142 Potassium 5.3 H Chloride 104 Carbon Dioxide 32 H BUN 86 H Creatinine 3.28 H Glucose 202 H Calcium 8.7 - ABG Interpretation ABG results: ABG ABG pH 7.41 pH Units (7.32-7.45) 06/23/18 05:13 ABG pCO2 58 mmHg (35-45) H 06/23/18 05:13 ABG pO2 74 mmHg (85-104) L 06/23/18 05:13 ABG O2 Saturation 94 % (95-98) L 06/23/18 05:13 - Impressions Impressions Chest X-Ray 06/29/18 10:32 IMPRESSION: Increasing small bilateral pleural effusions with some dependent bibasilar opacification, atelectasis versus infiltrate. No overt failure. 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
[2018-06-30] MEDS: Mag Hydrox/Al Hydrox/Simeth 30 ML UDC PO PRN (13:56)
[2018-06-30] MEDS ORDERED: Budesonide Neb 0.5 MG/2 ML IH ONE (20:30)
[2018-07-01] MEDS: Artificial Tears SOLN 15 ML BOTTLE BOTH EYES SCH ×7 (00:40→23:57)
[2018-07-01 04:08] LABS: Basophils % 0.2 %; Eosinophils % 0.3 %; Hematocrit 32.8 % (37.5-50.1); Hemoglobin 9.6 g/dL (12.9-16.9); Lymphocytes # 1.5 K/mcL (0.6-4.6); Lymphocytes % 13.4 %; Mean Corpuscular HGB Conc 29.3 g/dL (31.6-35.5); Mean Corpuscular Hemoglobin 28.2 pg (28.0-33.3); Mean Corpuscular Volume 96.2 fL (83.0-100.0); Mean Platelet Volume 10.5 fL (9.4-12.4); Monocytes # 0.7 K/mcL (0.0-1.3); Monocytes % 6.7 %; Neutrophils # 8.5 K/mcL (1.6-8.9); Platelet Count 186 K/mcL (140-400); Red Blood Count 3.41 M/mcL (4.19-5.50); Red Cell Distribution Width 14.9 % (11.5-14.5); Segmented Neutrophils % 77.4 %
[2018-07-01 04:18] LABS: Calcium 8.8 mg/dL (8.6-10.3); Potassium 5.8 mEq/L (3.5-5.1)
[2018-07-01] MEDS: Ipratropium/Albuterol Neb 3 ML IH SCH ×6 (04:31→23:41)
[2018-07-01] MEDS: *HR* Heparin 5,000 UNIT/ML VIAL SQ SCH ×3 (05:00→20:59)
[2018-07-01] MEDS: Budesonide Neb 0.5 MG/2 ML IH SCH ×2 (07:31→19:45)
[2018-07-01] MEDS: amLODIPine 5 MG TABLET GTUBE SCH (08:24)
[2018-07-01] MEDS: predniSONE 20 MG TABLET PO SCH (08:24)
[2018-07-01] MEDS: *HR* HYDROcodone/Acet 5/325 mg TABLET GTUBE PRN ×2 (08:24→21:05)
[2018-07-01] MEDS: cloNIDine HCl 0.1 MG TABLET PO SCH ×2 (08:25→20:57)
[2018-07-01] MEDS: clonazePAM 1 MG TABLET GTUBE SCH ×2 (08:25→20:56)
[2018-07-01] MEDS: Piperacillin/Tazobactam 3.375 GM in 0.9 % Sodium Chloride Mini Bag 100 ML IVPB SCH ×2 (08:25→20:58)
[2018-07-01] MEDS: Ferrous Sulfate Oral Soln 300 MG/5 ML UDC GTUBE SCH (08:26)
[2018-07-01] MEDS: Chlorhexidine Rinse 15 ML MOUTHWASH MM SCH ×2 (08:26→20:57)
[2018-07-01] MEDS: Insulin LISPRO 300 UNITS/3 ML VIAL SQ SCH ×7 (08:31→20:57)
--- NOTE | 2018-07-01 10:12 | Nephrology Progress Note ---
Date of Encounter: 07/01/18 Time of Encounter: 08:10 - Assessment and Plan (1) LUNA (acute kidney injury) Current Visit: Yes Status: Acute Nonoliguric and and roughly stable: consistent with ATN. Continue diuretics when able for his edema. Continue to follow a renal protective and conservative strategy: strict I/Os, daily weights, avoidance of nephrotoxins as able and renal dosing. Thank you. (2) Hyperkalemia Current Visit: Yes Status: Acute Agree with Kayexalate, which has already been ordered. Low K+/Renal diet going forward. Subjective Principal diagnosis: Pneumonia Interval history: The patient was seen and examined in his 2N room earlier today. He again affirmed feeling well enough, and he affirmed having ongoing swelling, but he did not affirm N/V/D. Objective - Vital Signs Vital signs: Vital Signs Temp Pulse Resp BP Pulse Ox 07/01/18 07:31 16 92 07/01/18 07:00 97.6 F 70 22 145/86 93 07/01/18 04:31 16 97 07/01/18 02:21 97.8 F 66 16 108/84 93 06/30/18 23:53 18 96 06/30/18 23:36 98 F 71 16 145/77 98 06/30/18 20:24 20 90 06/30/18 19:31 98 F 71 18 136/81 93 06/30/18 16:40 97.8 F 79 18 130/98 93 06/30/18 16:32 16 92 06/30/18 14:02 92 06/30/18 12:28 97.8 F 91 20 145/90 92 06/30/18 11:52 89 06/30/18 11:01 16 94 Intake and Output 06/30/18 07/01/18 07/01/18 23:59 07:59 15:59 Intake Total 240 / 240 100 / 100 240 / 240 Output Total 625 / 625 Balance -385 / -385 100 / 100 240 / 240 Intake: IV Fluids 100 / 100 Zosyn 3.375 GM In 0.9 % Sodium 100 / 100 Chloride (Mini-Bag +) 100 ML @ 25 mls/hr IVPB Q12H [facility] Rx#: [id number] Oral 240 / 240 240 / 240 Output: Catheter 625 / 625 Other: Meal Dinner Breakfast Percent of Meal Consumed 20% 50% Weight 113 kg Blood Glucose* 242 188 Patient Weight 07/01/18 23:59 Weight 113 kg - General Appearance General appearance: Present: well-developed, well-nourished, appears started age, obese EENT: Present: ATNC, PERRL, mucous membranes moist Neck: Present: supple Respiratory: Present: course breath sounds Cardiology: Present: edema (LE and hand edema b/l), regular rate, regular rhythm, normal S1, normal S2 Gastrointestinal: Present: normoactive bowel sounds, no guarding, obese Integumentary: Present: warm and dry Neurologic: Present: no focal deficit, no asterixis, alert and oriented x3 Musculoskeletal: Present: no cyanosis, no clubbing Psychiatric: Present: mood/affect appropriate, cooperative - Lab 07/01/18 03:50 07/01/18 03:50 Most recent lab results ABG pH 7.41 pH Units (7.32-7.45) 06/23/18 05:13 ABG pCO2 58 mmHg (35-45) H 06/23/18 05:13 ABG pO2 74 mmHg (85-104) L 06/23/18 05:13 ABG HCO3 36 mEq/L (21-27) H 06/23/18 05:13 ABG O2 Saturation 94 % (95-98) L 06/23/18 05:13 Calcium 8.8 mg/dL (8.6-10.3) 07/01/18 03:50 Phosphorus 6.6 mg/dL (2.7-4.5) H 06/26/18 04:15 Magnesium 2.4 mg/dL (1.6-2.6) 06/25/18 04:35 Urine Creatinine 58 mg/dL 06/25/18 07:42 Urine Sodium 62.7 mEq/L 06/25/18 07:42 Consult Discharge Plan - Plan Referrals: Zachery Regalado MD [Primary Care Provider] -
--- NOTE | 2018-07-01 10:47 | Internal Med Progress Note ---
Hospitalist Progress Note - Encounter Date of Encounter: 07/01/18 Time of Encounter: 08:30 - Subjective Interval History: No acute events overnight. Patient appears much stronger today and denies any dyspnea, chest pain, or palpitation. No fever overnight - Exam Vitals: Temp Pulse Resp BP Pulse Ox 97.6 F 70 16 145/86 92 07/01/18 07:00 07/01/18 07:00 07/01/18 07:31 07/01/18 07:00 07/01/18 07:31 Exam: General appearance: no acute distress Pulmonary: on trach collar, mostly clear to auscultation with decreased breath sound on R lung base Cardiovascular: regular rate and rhythm Gastrointestinal: soft, non-tender. PEG tube site appears unremarkable Musculoskeletal: no deformities Neuro: non-focal exam - Assessment and Plan (1) Acute on chronic respiratory failure with hypoxia and hypercapnia Current Visit: Yes Status: Acute Assessment and Plan: due to RLL PNA, on chronic trach continues to require high flow O2 but now down to 10L repeat CXR 06/29 showed slightly increased R effusion but otherwise unchanged. Free water was discontinued to avoid pulmonary edema Continue with bronchopulmonary hygiene covering for hospital associated organisms as well as aspiration episode. Continue Zosyn D10, WBC normal today. Will complete abx today to rule out other possible etiology of persistent hypoxia, LE doppler was ordered and pending. Unable to perform CTA due to LUNA (2) LUNA (acute kidney injury) Current Visit: Yes Status: Acute Assessment and Plan: likely due to ATN from septic shock nonoliguric, Cr improving, K slightly high at 5.8 after 15g of Kayexalate retroperitoneal US on 06/21 was unremarkable CPK normal, urine eosinophils 0 LINDA-i on hold will give 30g of kayexalate today, renal diet anticipate eventual renal recovery, follow with Nephrology renally dosed abx (3) Right lower lobe pneumonia Current Visit: No Status: Acute Assessment and Plan: strep/legionella ag -ve, abx as above (4) COPD exacerbation Current Visit: Yes Status: Acute Assessment and Plan: was on stress dose steroids with hydrocortisone due to septic shock and chronic steroid dependence switched to solumedrol on 06/24, transition to PO steroids 06/27. Taper back to his home dose of 20mg over 2 weeks continue bronchodilators and bronchopulmonary hygiene. abx as per PNA (5) Adrenal insufficiency Current Visit: Yes Status: Acute Assessment and Plan: steroid as above (6) Septic shock Current Visit: Yes Status: Resolved Assessment and Plan: resolved, off pressors abx as above (7) Diabetes mellitus Current Visit: Yes Status: Acute Assessment and Plan: continue basal-bolus insulin with moderate dose sliding scale and 10U lispro premeals (8) Dysphagia Current Visit: Yes Status: Acute Assessment and Plan: passed MBS, for PO diet (9) Hypertension Current Visit: Yes Status: Chronic Assessment and Plan: Continue norvasc 10mg, Coreg to 25mg twice a day, and Clonidine 0.1mg BID PRN hydralazine (10) DVT prophylaxis Current Visit: Yes Status: Acute Assessment and Plan: SQ heparin - Time Spent with Patient Total time spent is greater than 50% in coordination of care (as documented) at patient's floor/unit and/or counseling patient: 25 - 35 minutes Plan of Care Discussed with: patient (discussed with RN) Internal Medicine: Result - Labs CBC & Chem 7: 07/01/18 03:50 07/01/18 03:50 Labs: Short CBC 07/01/18 Range/Units 03:50 WBC 11.0 (4.3-11.1) K/mcL Hgb 9.6 L (12.9-16.9) g/dL Hct 32.8 L (37.5-50.1) % Plt Count 186 (140-400) K/mcL Neutrophils # 8.5 (1.6-8.9) K/mcL BMP 07/01/18 03:50 Sodium 144 Potassium 5.8 H Chloride 107 Carbon Dioxide 35 H BUN 84 H Creatinine 3.17 H Glucose 244 H Calcium 8.8 - ABG Interpretation ABG results: ABG ABG pH 7.41 pH Units (7.32-7.45) 06/23/18 05:13 ABG pCO2 58 mmHg (35-45) H 06/23/18 05:13 ABG pO2 74 mmHg (85-104) L 06/23/18 05:13 ABG O2 Saturation 94 % (95-98) L 06/23/18 05:13 Consult Discharge Plan - Plan Referrals: Zachery Regalado MD [Primary Care Provider] - (3) Right lower lobe pneumonia Qualifiers: Pneumonia type: due to unspecified organism Qualified Code(s): J18.1 - Lobar pneumonia, unspecified organism (7) Diabetes mellitus Qualifiers: Diabetes mellitus type: type 2 Diabetes mellitus meterman insulin use: without meterman use Qualified Code(s): E11.9 - Type 2 diabetes mellitus without complications (8) Dysphagia Qualifiers: Qualified Code(s): R13.10 - Dysphagia, unspecified (9) Hypertension Qualifiers: Hypertension type: essential hypertension Qualified Code(s): I10 - Essential (primary) hypertension
[2018-07-01] MEDS: Insulin DETEMIR 100 UNIT/ML X5UNITS SQ SCH (10:54)
[2018-07-01] MEDS ORDERED: Ipratropium/Albuterol Neb 3 ML IH ONE (20:37)
[2018-07-02] MEDS: Artificial Tears SOLN 15 ML BOTTLE BOTH EYES SCH ×6 (03:34→23:35)
[2018-07-02] MEDS: Ipratropium/Albuterol Neb 3 ML IH SCH ×6 (03:51→23:29)
[2018-07-02 04:49] LABS: Basophils % 0.2 %; Eosinophils % 0.3 %; Hematocrit 32.6 % (37.5-50.1); Hemoglobin 9.6 g/dL (12.9-16.9); Immature Granulocytes % 2.7 % (0-4); Lymphocytes # 1.8 K/mcL (0.6-4.6); Lymphocytes % 12.7 %; Mean Corpuscular HGB Conc 29.4 g/dL (31.6-35.5); Mean Corpuscular Hemoglobin 28.5 pg (28.0-33.3); Mean Corpuscular Volume 96.7 fL (83.0-100.0); Mean Platelet Volume 10.4 fL (9.4-12.4); Monocytes # 0.9 K/mcL (0.0-1.3); Monocytes % 6.7 %; Neutrophils # 10.9 K/mcL (1.6-8.9); Platelet Count 197 K/mcL (140-400); Red Blood Count 3.37 M/mcL (4.19-5.50); Red Cell Distribution Width 14.9 % (11.5-14.5); Segmented Neutrophils % 77.4 %
[2018-07-02 05:13] LABS: Calcium 8.6 mg/dL (8.6-10.3); Potassium 5.7 mEq/L (3.5-5.1)
[2018-07-02] MEDS: *HR* Heparin 5,000 UNIT/ML VIAL SQ SCH ×3 (05:31→21:35)
--- NOTE | 2018-07-02 06:57 | Event Note ---
Date of Encounter: 07/02/18 Time of Encounter: 06:55 - Nephrology Event Note Nephrology Chart Update His renal function has continued to safely and significantly improve. He should a low dose loop diuretic continued, which would help potentiate a kaliuresis effect to maintain a lower serum K+. I would recommend a better dose of Kayexalate at 45gm today. He should follow up with Nephrology in about a month with a BMP checked in about a week after discharge. I will sign-off at this point, now that his renal function has demonstrated ongoing improvement, but please feel free to call or page me with any Renal questions. Thank you.
[2018-07-02] MEDS: Budesonide Neb 0.5 MG/2 ML IH SCH ×2 (07:44→19:35)
[2018-07-02] MEDS: predniSONE 20 MG TABLET PO SCH (07:53)
[2018-07-02] MEDS: Ferrous Sulfate Oral Soln 300 MG/5 ML UDC GTUBE SCH (07:53)
[2018-07-02] MEDS: Chlorhexidine Rinse 15 ML MOUTHWASH MM SCH ×2 (07:53→21:43)
[2018-07-02] MEDS: amLODIPine 5 MG TABLET GTUBE SCH (07:54)
[2018-07-02] MEDS: clonazePAM 1 MG TABLET GTUBE SCH (07:54)
[2018-07-02] MEDS: cloNIDine HCl 0.1 MG TABLET PO SCH ×2 (07:54→21:35)
[2018-07-02] MEDS: Insulin DETEMIR 100 UNIT/ML X5UNITS SQ SCH (07:59)
[2018-07-02] MEDS: Insulin LISPRO 300 UNITS/3 ML VIAL SQ SCH ×7 (08:00→21:32)
[2018-07-02] MEDS: *HR* HYDROcodone/Acet 5/325 mg TABLET GTUBE PRN (08:05)
[2018-07-02] MEDS ORDERED: Furosemide 40 MG TABLET PO SCH (15:00)
[2018-07-02] MEDS ORDERED: Furosemide 40 MG/4 ML VIAL IVP ONE (15:15)
--- NOTE | 2018-07-02 15:59 | Internal Med Progress Note ---
Hospitalist Progress Note - Encounter Date of Encounter: 07/02/18 Time of Encounter: 15:56 - Subjective Interval History: Patient seen and examined at bedside. Patient states that his breathing feels about the same today. He does report swelling in his upper and lower extremities. Denies chest pain, fever, chills - Exam Vitals: Temp Pulse Resp BP Pulse Ox 97.6 F 66 19 113/61 93 07/02/18 12:16 07/02/18 12:16 07/02/18 12:16 07/02/18 12:16 07/02/18 12:16 Exam: Gen.: Alert and oriented 3, no acute distress Neck: Tracheostomy in place with trach mask present Lungs: Bilateral rales bibasilar, no rhonchi or wheezes noted Heart: Regular rate and rhythm, no murmurs, gallops, 2+ pitting edema in upper and lower extremities bilaterally - Assessment and Plan (1) Septic shock Current Visit: Yes Status: Resolved Assessment and Plan: Resolved. Patient seems to be recovering well. No longer on antibiotics. White count mildly increased today likely due to steroid use, we will decrease prednisone to 30 mg daily.. (2) Acute on chronic respiratory failure with hypoxia and hypercapnia Current Visit: Yes Status: Acute Assessment and Plan: Patient continues to be hypoxic requiring 10 L of oxygen supplementation via trach mask, baseline 6 L. At this point I feel hypoxia is related to pulmonary edema. We will give one-time dose of Lasix 40 mg IV and start by mouth Lasix tomorrow per nephrology recommendations. Wean oxygen with a goal oxygen saturat ion greater than 89%. (3) Aspiration pneumonia Current Visit: Yes Status: Acute Assessment and Plan: Patient has right lower lobe pneumonia, likely due to aspiration. Gastrostomy tube placed this hospitalization. Patient patient completed 10 days of antibiotics. (4) COPD exacerbation Current Visit: Yes Status: Acute Assessment and Plan: Patient being treated for COPD exacerbation due to pneumonia. Completed antibiotics. We will slowly taper off prednisone to home dose of 20 mg the next several weeks. (5) LUNA (acute kidney injury) Current Visit: Yes Status: Acute Assessment and Plan: Creatinine normal presentation, peaked at 3.64, has been improving. Closely monitor creatinine. We will give one-time dose of IV Lasix or pulmonary edema in continue diuretics per nephrology recommendations. (6) Hyperkalemia Current Visit: Yes Status: Acute Assessment and Plan: Potassium 5.7 today. No EKG changes. Give one-time dose of Kayexalate 45 g. (7) Hypertension Current Visit: Yes Status: Chronic Assessment and Plan: Blood pressure under good control. Continue home medications. (8) Diabetes mellitus Current Visit: Yes Status: Acute Assessment and Plan: Blood sugar mildly above goal possibly due to steroid. We will decrease steroids as above and closely monitor. (9) Adrenal insufficiency Current Visit: Yes Status: Acute Assessment and Plan: Continue steroid with prednisone, we will decrease to 30 mg, will continue for 7 days then decrease to 20 mg which is his home dose. (10) DVT prophylaxis Current Visit: Yes Status: Acute Assessment and Plan: Heparin 5000 units subcutaneous every 8 hours - Time Spent with Patient Total time spent is greater than 50% in coordination of care (as documented) at patient's floor/unit and/or counseling patient: Internal Medicine: Result - Labs CBC & Chem 7: 07/02/18 04:41 07/02/18 04:41 Labs: Short CBC 07/02/18 Range/Units 04:41 WBC 14.1 H (4.3-11.1) K/mcL Hgb 9.6 L (12.9-16.9) g/dL Hct 32.6 L (37.5-50.1) % Plt Count 197 (140-400) K/mcL Neutrophils # 10.9 H (1.6-8.9) K/mcL BMP 07/02/18 04:41 Sodium 145 Potassium 5.7 H Chloride 107 Carbon Dioxide 32 H BUN 80 H Creatinine 2.84 H Glucose 210 H Calcium 8.6 - ABG Interpretation ABG results: ABG ABG pH 7.41 pH Units (7.32-7.45) 06/23/18 05:13 ABG pCO2 58 mmHg (35-45) H 06/23/18 05:13 ABG pO2 74 mmHg (85-104) L 06/23/18 05:13 ABG O2 Saturation 94 % (95-98) L 06/23/18 05:13 Consult Discharge Plan - Plan Referrals: Zachery Regalado MD [Primary Care Provider] - (3) Aspiration pneumonia Qualifiers: Aspiration pneumonia type: unspecified Lung location: lower lobe of lung Qualified Code(s): J69.0 - Pneumonitis due to inhalation of food and vomit (7) Hypertension Qualifiers: Hypertension type: essential hypertension Qualified Code(s): I10 - Essential (primary) hypertension (8) Diabetes mellitus Qualifiers: Diabetes mellitus type: type 2 Diabetes mellitus alf insulin use: without alf use Qualified Code(s): E11.9 - Type 2 diabetes mellitus without complications
[2018-07-02] MEDS: clonazePAM 1 MG TABLET PO SCH (21:35)
[2018-07-02] MEDS: *HR* HYDROcodone/Acet 5/325 mg TABLET PO PRN (23:40)
[2018-07-03] MEDS: Ipratropium/Albuterol Neb 3 ML IH SCH ×6 (03:53→23:56)
[2018-07-03] MEDS: Artificial Tears SOLN 15 ML BOTTLE BOTH EYES SCH ×5 (05:33→20:31)
[2018-07-03] MEDS: *HR* Heparin 5,000 UNIT/ML VIAL SQ SCH ×3 (05:39→20:31)
[2018-07-03 05:46] LABS: Basophils % 0.1 %; Eosinophils % 0.3 %; Hematocrit 31.9 % (37.5-50.1); Hemoglobin 9.3 g/dL (12.9-16.9); Immature Granulocytes % 1.9 % (0-4); Lymphocytes # 2.2 K/mcL (0.6-4.6); Lymphocytes % 13.9 %; Mean Corpuscular HGB Conc 29.2 g/dL (31.6-35.5); Mean Corpuscular Hemoglobin 28.4 pg (28.0-33.3); Mean Corpuscular Volume 97.3 fL (83.0-100.0); Monocytes # 1.2 K/mcL (0.0-1.3); Monocytes % 7.5 %; Platelet Count 208 K/mcL (140-400); Red Blood Count 3.28 M/mcL (4.19-5.50); Segmented Neutrophils % 76.3 %
[2018-07-03 06:07] LABS: Calcium 8.6 mg/dL (8.6-10.3); Magnesium 1.5 mg/dL (1.6-2.6)
[2018-07-03] MEDS: cloNIDine HCl 0.1 MG TABLET PO SCH ×2 (07:42→20:30)
[2018-07-03] MEDS: Chlorhexidine Rinse 15 ML MOUTHWASH MM SCH ×2 (07:42→20:35)
[2018-07-03] MEDS: predniSONE 10 MG TABLET PO SCH (07:45)
[2018-07-03] MEDS: amLODIPine 5 MG TABLET PO SCH (07:45)
[2018-07-03] MEDS: clonazePAM 1 MG TABLET PO SCH ×2 (07:46→20:30)
[2018-07-03] MEDS: Budesonide Neb 0.5 MG/2 ML IH SCH ×2 (07:46→19:43)
[2018-07-03] MEDS: Insulin LISPRO 300 UNITS/3 ML VIAL SQ SCH ×7 (07:46→21:06)
[2018-07-03] MEDS: Insulin DETEMIR 100 UNIT/ML X5UNITS SQ SCH (07:48)
[2018-07-03] MEDS: Ferrous Sulfate Oral Soln 300 MG/5 ML UDC GTUBE SCH (07:51)
[2018-07-03] MEDS ORDERED: Furosemide 40 MG TABLET PO SCH (15:00)
[2018-07-03 15:25] LABS: Calcium 8.7 mg/dL (8.6-10.3); Phosphorous 5.8 mg/dL (2.7-4.5); Potassium 6.4 mEq/L (3.5-5.1)
--- NOTE | 2018-07-03 15:41 | Internal Med Progress Note ---
Hospitalist Progress Note - Encounter Date of Encounter: 07/03/18 Time of Encounter: 15:38 - Subjective Interval History: Patient seen and examined at bedside. Patient states that he feels okay today. He states his breathing is about the same. His swelling may be a tad better. Denies any fever or chills, chest pain. - Exam Vitals: Temp Pulse Resp BP Pulse Ox 98.2 F 77 12 142/66 96 07/03/18 11:50 07/03/18 11:50 07/03/18 11:50 07/03/18 11:50 07/03/18 11:50 Exam: Gen.: Alert and oriented 3, no acute distress Neck: Tracheostomy in place with trach mask present Lungs: Bilateral rales bibasilar, no rhonchi or wheezes noted Heart: Regular rate and rhythm, no murmurs, gallops, 2+ pitting edema in upper and lower extremities bilaterally - Assessment and Plan (1) Hyperkalemia Current Visit: Yes Status: Acute Assessment and Plan: Patient continues to be hyperkalemic despite multiple doses of Kayexalate. Potassium was 6.0. 45 g of Kayexalate was then given and on recheck potassium was up to 6.4. Asymptomatic, no EKG changes at this time. We will discuss with nephrology, patient may require acute dialysis. Patient is high risk for cardiac arrhythmia. (2) Septic shock Current Visit: Yes Status: Resolved Assessment and Plan: Resolved. Patient seems to be recovering well. No longer on antibiotics. White count mildly increased but relatively stable today likely due to steroid use, we will decrease prednisone to 30 mg daily.. (3) Acute on chronic respiratory failure with hypoxia and hypercapnia Current Visit: Yes Status: Acute Assessment and Plan: Patient continues to be hypoxic, however we have been able to decrease his oxygen requirements to 8 L via trach mask, baseline 6 L. Appears to be improved with Lasix. Continue by mouth Lasix. Wean oxygen with a goal oxygen saturation greater than 89%. (4) Aspiration pneumonia Current Visit: Yes Status: Acute Assessment and Plan: Patient has right lower lobe pneumonia, likely due to aspiration. Gastrostomy tube placed this hospitalization. Patient patient completed 10 days of antibiotics. (5) COPD exacerbation Current Visit: Yes Status: Acute Assessment and Plan: Patient being treated for COPD exacerbation due to pneumonia. Completed antibiotics. We will slowly taper off prednisone to home dose of 20 mg the next several weeks. (6) LUNA (acute kidney injury) Current Visit: Yes Status: Acute Assessment and Plan: Creatinine normal presentation, peaked at 3.64, continues to improve today. Closely monitor creatinine. Continue Lasix (7) Hypertension Current Visit: Yes Status: Chronic Assessment and Plan: Blood pressure under good control. Continue home medications. (8) Diabetes mellitus Current Visit: Yes Status: Acute Assessment and Plan: Blood sugar at goal. Continue sliding scale insulin coverage. (9) Adrenal insufficiency Current Visit: Yes Status: Acute Assessment and Plan: Continue steroid with prednisone, decreased to 30 mg yesterday, will continue for 7 days then decrease to 20 mg which is his home dose. (10) DVT prophylaxis Current Visit: Yes Status: Acute Assessment and Plan: Heparin 5000 units subcutaneous every 8 hours - Time Spent with Patient Total time spent is greater than 50% in coordination of care (as documented) at patient's floor/unit and/or counseling patient: Internal Medicine: Result - Labs CBC & Chem 7: 07/03/18 05:35 07/03/18 14:50 Labs: Short CBC 07/03/18 Range/Units 05:35 WBC 15.7 H (4.3-11.1) K/mcL Hgb 9.3 L (12.9-16.9) g/dL Hct 31.9 L (37.5-50.1) % Plt Count 208 (140-400) K/mcL Neutrophils # 12.0 H (1.6-8.9) K/mcL BMP 07/03/18 07/03/18 05:35 14:50 Sodium 146 H 148 H Potassium 6.0 H 6.4 H Chloride 106 105 Carbon Dioxide 37 H 38 H BUN 81 H 81 H Creatinine 2.73 H 2.73 H Glucose 140 H 157 H Calcium 8.6 8.7 - ABG Interpretation ABG results: ABG ABG pH 7.41 pH Units (7.32-7.45) 06/23/18 05:13 ABG pCO2 58 mmHg (35-45) H 06/23/18 05:13 ABG pO2 74 mmHg (85-104) L 06/23/18 05:13 ABG O2 Saturation 94 % (95-98) L 06/23/18 05:13 Consult Discharge Plan - Plan Referrals: Zachery Regalado MD [Primary Care Provider] - (4) Aspiration pneumonia Qualifiers: Aspiration pneumonia type: unspecified Lung location: lower lobe of lung Qualified Code(s): J69.0 - Pneumonitis due to inhalation of food and vomit (7) Hypertension Qualifiers: Hypertension type: essential hypertension Qualified Code(s): I10 - Essential (primary) hypertension (8) Diabetes mellitus Qualifiers: Diabetes mellitus type: type 2 Diabetes mellitus nursing home insulin use: without nursing home use Qualified Code(s): E11.9 - Type 2 diabetes mellitus without complications
--- NOTE | 2018-07-03 16:39 | Nephrology Progress Note ---
Date of Encounter: 07/03/18 Time of Encounter: 16:45 - Assessment and Plan (1) LUNA (acute kidney injury) Current Visit: Yes Status: Acute Nonoliguric and stable renal function. (2) Hyperkalemia Current Visit: Yes Status: Acute DDx: contraction/prerenal intravascular volume depletion (despite third spacing) -- he has a worsening contraction alkalosis as well: stop Lasix, and give 1/2 NS [id number] x1; Adrenal Insuff? (see below), hematoma/blood loss?, rhabdo? He does not have Rx on his MAR that are typical potentiators for hyperkalemia. Will check CK, and give IVF as described above, plus forineff as described below. He is asymptomatic, but if no improvement: then dialysis tomorrow AM. Thank you (3) Adrenal insufficiency Current Visit: Yes Status: Acute Reportedly he has a hx of A.I, but his last random AM cortisol was not low. Nevertheless, AI can induce hyperkalemia. So I recommend giving florineff. (4) Peripheral edema Current Visit: Yes Status: Acute Ongoing. Suspect intravascular volume depletion. Hold lasix temporarily. Subjective Principal diagnosis: Pneumonia Interval history: Nephrology was reconsulted for worsening hyperkalemia. The patient was seen and examined in his 2N room and he reported no major changes; and still has swelling in his hands and feet. He did not report constipation, diarrhea, N/V. Also discussed with the floor RN in detail who said that he's no longer getting Tube Feeds (sometimes certain Tube Feeds could provoke hyperkalemia) and he has been eating orally the last few days. Objective - Vital Signs Vital signs: Vital Signs Temp Pulse Resp BP Pulse Ox 07/03/18 11:50 98.2 F 77 12 142/66 96 07/03/18 10:53 18 89 07/03/18 08:04 81 07/03/18 07:45 16 98 07/03/18 07:40 81 148/77 07/03/18 07:28 97.9 F 79 12 90/49 98 07/03/18 03:53 15 97 07/03/18 03:39 98.3 F 72 18 130/73 98 07/02/18 23:53 97.7 F 83 16 148/74 94 07/02/18 23:30 15 99 07/02/18 19:43 98.1 F 88 18 133/80 97 07/02/18 19:35 15 95 07/02/18 16:37 97.7 F 77 18 120/70 91 Intake and Output 07/03/18 07/03/18 07/03/18 07:59 15:59 23:59 Intake Total 720 / 720 845 / 845 Output Total 400 / 400 600 / 600 Balance 320 / 320 245 / 245 Intake: Oral 600 / 600 720 / 720 Free Water 120 / 120 Free Water Intake Amount 125 / 125 Output: Urine 400 / 400 600 / 600 Other: Meal Lunch Percent of Meal Consumed 100% Stool Size Moderate Moderate Stool Consistency loose liquid liquid Stool Color Brown Brown # Bowel Movements 1 Weight 114.7 kg Patient Weight 07/03/18 23:59 Weight 114.7 kg - General Appearance Exam: General appearance: Present: well-developed, well-nourished, appears started age, obese EENT: Present: ATNC, PERRL, mucous membranes moist Neck: Present: supple Respiratory: Present: course breath sounds Cardiology: Present: edema (LE and hand edema b/l), regular rate, regular rhythm, normal S1, normal S2 Gastrointestinal: Present: normoactive bowel sounds, no guarding, obese Integumentary: Present: warm and dry Neurologic: Present: no focal deficit, no asterixis, alert and oriented x3 Musculoskeletal: Present: no cyanosis, no clubbing Psychiatric: Present: mood/affect appropriate, cooperative - Lab 07/03/18 05:35 07/03/18 14:50 Most recent lab results ABG pH 7.41 pH Units (7.32-7.45) 06/23/18 05:13 ABG pCO2 58 mmHg (35-45) H 06/23/18 05:13 ABG pO2 74 mmHg (85-104) L 06/23/18 05:13 ABG HCO3 36 mEq/L (21-27) H 06/23/18 05:13 ABG O2 Saturation 94 % (95-98) L 06/23/18 05:13 Calcium 8.7 mg/dL (8.6-10.3) 07/03/18 14:50 Phosphorus 5.8 mg/dL (2.7-4.5) H 07/03/18 14:50 Magnesium 1.5 mg/dL (1.6-2.6) L 07/03/18 05:35 Urine Creatinine 58 mg/dL 06/25/18 07:42 Urine Sodium 62.7 mEq/L 06/25/18 07:42 Consult Discharge Plan - Plan Referrals: Zachery Regalado MD [Primary Care Provider] -
[2018-07-04] MEDS: Artificial Tears SOLN 15 ML BOTTLE BOTH EYES SCH ×7 (00:05→23:31)
[2018-07-04] MEDS: Ipratropium/Albuterol Neb 3 ML IH SCH ×6 (03:46→23:16)
[2018-07-04] MEDS: *HR* Heparin 5,000 UNIT/ML VIAL SQ SCH ×3 (05:06→21:20)
[2018-07-04 05:25] LABS: Basophils % 0.3 %; Eosinophils % 0.4 %
[2018-07-04 05:27] LABS: Basophils # 0.1 K/mcL (0.0-0.2); Eosinophils # 0.1 K/mcL (0.0-0.6); Hematocrit 32.7 % (37.5-50.1); Hemoglobin 9.3 g/dL (12.9-16.9); Immature Granulocytes % 2.3 % (0-4); Lymphocytes # 2.2 K/mcL (0.6-4.6); Lymphocytes % 14.2 %; Mean Corpuscular HGB Conc 28.4 g/dL (31.6-35.5); Mean Corpuscular Volume 98.5 fL (83.0-100.0); Monocytes # 1.2 K/mcL (0.0-1.3); Monocytes % 7.6 %; Neutrophils # 11.8 K/mcL (1.6-8.9); Platelet Count 219 K/mcL (140-400); Red Blood Count 3.32 M/mcL (4.19-5.50); Red Cell Distribution Width 14.9 % (11.5-14.5); Segmented Neutrophils % 75.2 %
[2018-07-04 05:47] LABS: Calcium 8.5 mg/dL (8.6-10.3); Magnesium 1.5 mg/dL (1.6-2.6); Potassium 5.8 mEq/L (3.5-5.1)
[2018-07-04 05:53] LABS: Hypochromasia Present (Not Present); Platelet Estimate Normal (Normal)
--- NOTE | 2018-07-04 07:40 | Nephrology Progress Note ---
Date of Encounter: 07/04/18 Time of Encounter: 08:50 - Assessment and Plan (1) Hyperkalemia Current Visit: Yes Status: Acute Now trending better with the change made yesterday (continue Florinef), and since his renal function remains stable, I do not recommend HD today. See below, re: D5W. I updated the hospitalist. The pt remains very complex and high risk, and he required a high degree of E/M and MDM. (2) Hypernatremia Current Visit: Yes Status: Acute Recommend D5W today, which help correct his fluid deficit and help contribute to a lower serum K+ (3) LUNA (acute kidney injury) Current Visit: Yes Status: Acute Nonoliguric and stable renal function. Continue to follow a renal protective/conservative strategy with renal dosing. (4) Adrenal insufficiency Current Visit: Yes Status: Acute (5) Peripheral edema Current Visit: Yes Status: Acute Subjective Principal diagnosis: Pneumonia Interval history: Nephrology was s/e this AM. He reported feeling about the same, and did not affirm CP or N/V or D or F/C. His floor RN was present during my interview and exam, and I updated him on my recommendations. Objective - Vital Signs Vital signs: Vital Signs Temp Pulse Resp BP Pulse Ox 07/04/18 03:46 16 97 07/04/18 03:29 97.9 F 70 18 120/80 93 07/03/18 23:56 16 116/70 99 07/03/18 23:24 98.4 F 77 18 116/70 97 07/03/18 19:43 16 93 07/03/18 19:34 98.3 F 76 18 151/74 90 07/03/18 16:31 97.6 F 83 16 152/77 93 07/03/18 15:54 16 97 07/03/18 11:50 98.2 F 77 12 142/66 96 07/03/18 10:53 18 89 07/03/18 08:04 81 07/03/18 07:45 16 98 07/03/18 07:40 81 148/77 Intake and Output 07/03/18 07/03/18 07/04/18 15:59 23:59 07:59 Intake Total 845 / 845 125 / 125 Output Total 600 / 600 450 / 450 Balance 245 / 245 125 / 125 -450 / -450 Intake: Oral 720 / 720 Free Water Intake Amount 125 / 125 125 / 125 Output: Urine 600 / 600 450 / 450 Other: Meal Lunch Percent of Meal Consumed 100% Stool Size Moderate Moderate Stool Consistency liquid liquid Stool Color Brown Brown Weight 115.4 kg Blood Glucose* 165 Patient Weight 07/04/18 23:59 Weight 115.4 kg - General Appearance General appearance: Present: well-developed, well-nourished, appears started age, obese EENT: Present: ATNC, PERRL, mucous membranes moist Additional Comments: trach with oxygen tubing in place Neck: Present: supple Respiratory: Present: rhonchi Cardiology: Present: edema (less edema but still with 1+ with wrinkling of hands and pretibial edema bilaterally), regular rate, regular rhythm, normal S1, normal S2 Gastrointestinal: Present: normoactive bowel sounds, no tenderness, obese Additional Comments: PEG tube noted Integumentary: Present: no rash Neurologic: Present: no focal deficit, no asterixis, alert and oriented x3 Musculoskeletal: Present: no erythema, no cyanosis Psychiatric: Present: mood/affect appropriate, cooperative - Lab 07/04/18 05:13 07/04/18 05:13 Most recent lab results ABG pH 7.41 pH Units (7.32-7.45) 06/23/18 05:13 ABG pCO2 58 mmHg (35-45) H 06/23/18 05:13 ABG pO2 74 mmHg (85-104) L 06/23/18 05:13 ABG HCO3 36 mEq/L (21-27) H 06/23/18 05:13 ABG O2 Saturation 94 % (95-98) L 06/23/18 05:13 Calcium 8.5 mg/dL (8.6-10.3) L 07/04/18 05:13 Phosphorus 5.8 mg/dL (2.7-4.5) H 07/03/18 14:50 Magnesium 1.5 mg/dL (1.6-2.6) L 07/04/18 05:13 Urine Creatinine 58 mg/dL 06/25/18 07:42 Urine Sodium 62.7 mEq/L 06/25/18 07:42 Consult Discharge Plan - Plan Referrals: Zachery Regalado MD [Primary Care Provider] -
[2018-07-04] MEDS: Budesonide Neb 0.5 MG/2 ML IH SCH ×2 (07:45→20:03)
[2018-07-04] MEDS ORDERED: D5% in Water 1,000 ML IVC SCH (07:45)
[2018-07-04] MEDS: Insulin DETEMIR 100 UNIT/ML X5UNITS SQ SCH (08:24)
[2018-07-04] MEDS: predniSONE 10 MG TABLET PO SCH (08:25)
[2018-07-04] MEDS: amLODIPine 5 MG TABLET PO SCH (08:26)
[2018-07-04] MEDS: cloNIDine HCl 0.1 MG TABLET PO SCH ×2 (08:26→21:12)
[2018-07-04] MEDS: clonazePAM 1 MG TABLET PO SCH ×2 (08:26→21:11)
[2018-07-04] MEDS: Insulin LISPRO 300 UNITS/3 ML VIAL SQ SCH ×7 (08:27→21:24)
[2018-07-04] MEDS: Chlorhexidine Rinse 15 ML MOUTHWASH MM SCH ×2 (08:32→21:19)
[2018-07-04 08:37] LABS: Complement C3 101 mg/dL (87-200)
--- NOTE | 2018-07-04 15:40 | Internal Med Progress Note ---
Hospitalist Progress Note - Encounter Date of Encounter: 07/04/18 Time of Encounter: 15:37 - Subjective Interval History: Patient seen and examined at bedside. Patient states that he feels slightly better today. Feels his swelling is about the same. Feels like his shortness of breath is slightly improved. He is eating and drinking well. - Exam Vitals: Temp Pulse Resp BP Pulse Ox 97.8 F 70 16 105/60 95 07/04/18 11:33 07/04/18 11:33 07/04/18 11:35 07/04/18 11:33 07/04/18 11:35 Exam: Gen.: Alert and oriented 3, no acute distress Neck: Tracheostomy in place with trach mask present Lungs: Lungs clear to auscultation bilaterally, no rales, rhonchi, or wheezes. Heart: Regular rate and rhythm, no murmurs, gallops, 2+ pitting edema in upper and lower extremities bilaterally - Assessment and Plan (1) Hyperkalemia Current Visit: Yes Status: Acute Assessment and Plan: Improved today. Potassium 5.8. Asymptomatic. Discussed with nephrology. As patient's renal function remained stable no indication for acute dialysis. (2) Hypernatremia Current Visit: Yes Status: Acute Assessment and Plan: Sodium mildly elevated at 140 today. Asymptomatic. Possibly due to fluid deficit. Nephrology following and recommend D5 infusion. Recheck in the morning. (3) Septic shock Current Visit: Yes Status: Resolved Assessment and Plan: Resolved. Patient seems to be recovering well. No longer on antibiotics. White count stable today likely due to steroid use, prednisone decreased yesterday to 30 mg daily. (4) Acute on chronic respiratory failure with hypoxia and hypercapnia Current Visit: Yes Status: Acute Assessment and Plan: Patient continues to be hypoxic, with his oxygen requirements fluctuated between 8 and 10 L. Continue by mouth Lasix. Wean oxygen with a goal oxygen saturation greater than 89%. (5) Aspiration pneumonia Current Visit: Yes Status: Acute Assessment and Plan: Patient has right lower lobe pneumonia, likely due to aspiration. Gastrostomy tube placed this hospitalization. Patient patient completed 10 days of antibiotics. (6) COPD exacerbation Current Visit: Yes Status: Acute Assessment and Plan: Patient being treated for COPD exacerbation due to pneumonia. Completed antibiotics. We will slowly taper off prednisone to home dose of 20 mg the next several weeks. (7) LUNA (acute kidney injury) Current Visit: Yes Status: Acute Assessment and Plan: Creatinine normal at presentation, peaked at 3.64, continues to improve today. Closely monitor creatinine. Continue Lasix (8) Hypertension Current Visit: Yes Status: Chronic Assessment and Plan: Blood pressure under good control. Continue home medications. (9) Diabetes mellitus Current Visit: Yes Status: Acute Assessment and Plan: Blood sugar at goal. Continue sliding scale insulin coverage. (10) Adrenal insufficiency Current Visit: Yes Status: Acute Assessment and Plan: Continue steroid with prednisone, decreased to 30 mg yesterday, will continue for 7 days then decrease to 20 mg which is his home dose. Florinef started per nephrology recommendations (11) DVT prophylaxis Current Visit: Yes Status: Acute Assessment and Plan: Heparin 5000 units subcutaneous every 8 hours - Time Spent with Patient Total time spent is greater than 50% in coordination of care (as documented) at patient's floor/unit and/or counseling patient: Internal Medicine: Result - Labs CBC & Chem 7: 07/04/18 05:13 07/04/18 05:13 Labs: Short CBC 07/04/18 Range/Units 05:13 WBC 15.7 H (4.3-11.1) K/mcL Hgb 9.3 L (12.9-16.9) g/dL Hct 32.7 L (37.5-50.1) % Plt Count 219 (140-400) K/mcL Neutrophils # 11.8 H (1.6-8.9) K/mcL BMP 07/04/18 05:13 Sodium 148 H Potassium 5.8 H Chloride 106 Carbon Dioxide 38 H BUN 75 H Creatinine 2.46 H Glucose 104 Calcium 8.5 L - ABG Interpretation ABG results: ABG ABG pH 7.41 pH Units (7.32-7.45) 06/23/18 05:13 ABG pCO2 58 mmHg (35-45) H 06/23/18 05:13 ABG pO2 74 mmHg (85-104) L 06/23/18 05:13 ABG O2 Saturation 94 % (95-98) L 06/23/18 05:13 Consult Discharge Plan - Plan Referrals: Zachery Regalado MD [Primary Care Provider] - (5) Aspiration pneumonia Qualifiers: Aspiration pneumonia type: unspecified Lung location: lower lobe of lung Qualified Code(s): J69.0 - Pneumonitis due to inhalation of food and vomit (8) Hypertension Qualifiers: Hypertension type: essential hypertension Qualified Code(s): I10 - Essential (primary) hypertension (9) Diabetes mellitus Qualifiers: Diabetes mellitus type: type 2 Diabetes mellitus snf insulin use: without data capture specialist use Qualified Code(s): E11.9 - Type 2 diabetes mellitus without complications
[2018-07-04] MEDS: *HR* HYDROcodone/Acet 5/325 mg TABLET PO PRN (21:18)
[2018-07-05] MEDS: Ipratropium/Albuterol Neb 3 ML IH SCH ×6 (03:59→23:51)
[2018-07-05 04:21] LABS: Basophils % 0.1 %; Eosinophils # 0.1 K/mcL (0.0-0.6); Eosinophils % 0.4 %; Hematocrit 29.3 % (37.5-50.1); Hemoglobin 8.5 g/dL (12.9-16.9); Immature Granulocytes % 1.5 % (0-4); Lymphocytes # 2.2 K/mcL (0.6-4.6); Mean Corpuscular Hemoglobin 28.6 pg (28.0-33.3); Mean Corpuscular Volume 98.7 fL (83.0-100.0); Mean Platelet Volume 10.3 fL (9.4-12.4); Monocytes # 1.1 K/mcL (0.0-1.3); Monocytes % 7.5 %; Neutrophils # 11.2 K/mcL (1.6-8.9); Platelet Count 244 K/mcL (140-400); Red Blood Count 2.97 M/mcL (4.19-5.50); Red Cell Distribution Width 14.6 % (11.5-14.5); Segmented Neutrophils % 75.5 %
[2018-07-05 04:57] LABS: Albumin 2.6 g/dL (3.5-5.7); Calcium 8.4 mg/dL (8.6-10.3); Magnesium 1.5 mg/dL (1.6-2.6); Potassium 5.8 mEq/L (3.5-5.1)
[2018-07-05] MEDS: *HR* Heparin 5,000 UNIT/ML VIAL SQ SCH ×3 (05:49→21:45)
[2018-07-05] MEDS: Artificial Tears SOLN 15 ML BOTTLE BOTH EYES SCH ×5 (05:52→21:47)
[2018-07-05] MEDS: Budesonide Neb 0.5 MG/2 ML IH SCH ×2 (07:37→20:14)
[2018-07-05] MEDS: amLODIPine 5 MG TABLET PO SCH (09:13)
[2018-07-05] MEDS: *HR* HYDROcodone/Acet 5/325 mg TABLET PO PRN ×2 (09:14→18:35)
[2018-07-05] MEDS: cloNIDine HCl 0.1 MG TABLET PO SCH ×2 (09:14→21:47)
[2018-07-05] MEDS: clonazePAM 1 MG TABLET PO SCH ×2 (09:14→21:45)
[2018-07-05] MEDS: predniSONE 10 MG TABLET PO SCH (09:14)
[2018-07-05] MEDS: Chlorhexidine Rinse 15 ML MOUTHWASH MM SCH ×2 (09:15→21:45)
[2018-07-05] MEDS: Insulin LISPRO 300 UNITS/3 ML VIAL SQ SCH ×7 (09:22→21:47)
[2018-07-05] MEDS: Insulin DETEMIR 100 UNIT/ML X5UNITS SQ SCH (09:23)
[2018-07-05] MEDS ORDERED: 0.9 % Sodium Chloride 250 ML IVC PRN (11:39)
[2018-07-05] MEDS ORDERED: *HR* Heparin 10,000 UNIT/10 ML VIAL IV PRN (11:39)
[2018-07-05] MEDS ORDERED: 0.9 % Sodium Chloride 1,000 ML PRIME SCH (11:45)
[2018-07-05] MEDS ORDERED: 0.9 % Sodium Chloride 2,000 ML ONE (12:04)
[2018-07-05 13:51] LABS: Hepatitis B Surface Antibody < 3.10 mIU/mL
[2018-07-05 14:02] LABS: Hepatitis B Surface Antigen Nonreactive (Nonreactive)
[2018-07-05] MEDS ORDERED: *HR* Heparin 5,000 UNIT/ML VIAL ONE (14:02)
--- NOTE | 2018-07-05 14:22 | IR Procedure Note ---
Date of procedure: 07/05/18 Consent Obtained: Written consent Timeout: Correct patient and procedure verified, Correct site verified, Time out performed, Skin prep completed Local anesthetic: Lidocaine 1% Indications: renal failure Procedure Performed: IJ temp HDC Was there an health care assistant present: No Site/Technique: rt IJ, tip in SVC/RA Results/Findings: will check with CXR Estimated blood loss (cc): 0 Complications: None; Tolerated procedure well Post Procedure Treatment Plan: CXR, then dialyze Specimen: none
--- NOTE | 2018-07-05 14:39 | Nephrology Progress Note ---
Date of Encounter: 07/05/18 Time of Encounter: 14:36 - Assessment and Plan (1) LUNA (acute kidney injury) Current Visit: Yes Status: Acute Patient with acute kidney injury with a renal function that is relatively stable, however, he has had significant difficulty with management of his potassium. He is also had difficulty with diuretics. As the patient has been in the hospital for prolonged period of time without resolution of his nephrologic issues. I will start dialysis today for treatment of his hyperkalemia and fluid removal. We will assess for improvement in his kidney function next week depending on his response to dialysis. I did speak with the primary team about his care. (2) Adrenal insufficiency Current Visit: Yes Status: Acute (3) Hyperkalemia Current Visit: Yes Status: Acute (4) Peripheral edema Current Visit: Yes Status: Acute (5) Hypernatremia Current Visit: Yes Status: Acute Improved Subjective Principal diagnosis: Pneumonia Interval history: Patient seen and evaluated. His daughter is at his bedside. He has a trach. I spoke with the primary team regarding his management. He states he still has some level of dyspnea, but no chest pain. Objective - Vital Signs Vital signs: Vital Signs Temp Pulse Resp BP Pulse Ox 07/05/18 11:10 14 95 07/05/18 11:03 98.3 F 72 18 120/62 98 07/05/18 07:37 14 98 07/05/18 07:06 97.6 F 77 18 119/68 97 07/05/18 04:02 14 96 07/05/18 03:55 97.9 F 75 18 109/95 93 07/05/18 00:23 97.9 F 76 16 137/67 96 07/04/18 23:22 16 97 07/04/18 20:05 14 88 07/04/18 19:00 97.9 F 76 18 129/91 88 07/04/18 16:37 97.9 F 74 19 143/66 88 07/04/18 15:57 16 95 Intake and Output 07/04/18 07/05/18 07/05/18 23:59 07:59 15:59 Intake Total 1375 / 1375 250 / 250 480 / 480 Output Total 425 / 425 400 / 400 350 / 350 Balance 950 / 950 -150 / -150 130 / 130 Intake: IV Fluids 1000 / 1000 Dextrose 5% 1,000 ML @ 75 mls/ 1000 / 1000 hr IVC .[id number] [facility] Rx#: [id number] Oral 250 / 250 250 / 250 480 / 480 Free Water Intake Amount 125 / 125 Output: Urine 425 / 425 400 / 400 350 / 350 Gastric Tube Lavage Amount 0 / 0 0 / 0 0 / 0 Right Upper Quadrant 0 / 0 0 / 0 0 / 0 Other: Meal Breakfast Percent of Meal Consumed 100% Stool Size Moderate Stool Consistency loose soft Stool Characteristics Normal for Patient Stool Color Brown Green # Bowel Movements 1 Weight 115.3 kg Blood Glucose* 189 118 178 Patient Weight 07/05/18 23:59 Weight 115.3 kg - General Appearance General appearance: Present: well-developed, well-nourished Exam: Patient has a trach in place. EENT: Present: ATNC Neck: Present: supple Respiratory: Present: course breath sounds Cardiology: Present: edema, regular rate Gastrointestinal: Present: no tenderness Integumentary: Present: warm and dry Neurologic: Present: alert and oriented x3 Musculoskeletal: Present: no cyanosis Psychiatric: Present: mood/affect appropriate - Lab 07/05/18 03:50 07/05/18 03:50 Most recent lab results ABG pH 7.41 pH Units (7.32-7.45) 06/23/18 05:13 ABG pCO2 58 mmHg (35-45) H 06/23/18 05:13 ABG pO2 74 mmHg (85-104) L 06/23/18 05:13 ABG HCO3 36 mEq/L (21-27) H 06/23/18 05:13 ABG O2 Saturation 94 % (95-98) L 06/23/18 05:13 Calcium 8.4 mg/dL (8.6-10.3) L 07/05/18 03:50 Phosphorus 6.0 mg/dL (2.7-4.5) H 07/05/18 03:50 Magnesium 1.5 mg/dL (1.6-2.6) L 07/05/18 03:50 Urine Creatinine 58 mg/dL 06/25/18 07:42 Urine Sodium 62.7 mEq/L 06/25/18 07:42 Consult Discharge Plan - Plan Referrals: Zachery Regalado MD [Primary Care Provider] -
--- NOTE | 2018-07-05 15:02 | Internal Med Progress Note ---
Hospitalist Progress Note - Encounter Date of Encounter: 07/05/18 Time of Encounter: 14:59 - Subjective Interval History: Patient seen and examined at bedside. Patient states that he feels about the same today. Still reports mild shortness of breath. Still reports significant upper and lower extremity edema. - Exam Vitals: Temp Pulse Resp BP Pulse Ox 98.3 F 72 14 120/62 95 07/05/18 11:03 07/05/18 11:03 07/05/18 11:10 07/05/18 11:03 07/05/18 11:10 Exam: Gen.: Alert and oriented 3, no acute distress Neck: Tracheostomy in place with trach mask present Lungs: Rales in bilateral bases. Heart: Regular rate and rhythm, no murmurs, gallops, 2+ pitting edema in upper and lower extremities bilaterally - Assessment and Plan (1) Hyperkalemia Current Visit: Yes Status: Acute Assessment and Plan: Potassium is still high at 5.8 but stable. Asymptomatic. Patient continues to have significant fluid overload. Discussed with nephrology in our [facility] hemodialysis today and attempt to correct the patient's electrolyte and fluid issues. (2) Hypernatremia Current Visit: Yes Status: Acute Assessment and Plan: Resolved. (3) Septic shock Current Visit: Yes Status: Resolved Assessment and Plan: Resolved. Patient seems to be recovering well. No longer on antibiotics. White count stable today likely due to steroid use, prednisone decreased 2 days ago to 30 mg daily. (4) Acute on chronic respiratory failure with hypoxia and hypercapnia Current Visit: Yes Status: Acute Assessment and Plan: Patient continues to be hypoxic, with his oxygen requirements fluctuated between 8 and 10 L. Continue by mouth Lasix. Wean oxygen with a goal oxygen saturation greater than 89%. Patient will benefit from hemodialysis for fluid removal as I think pulmonary edema is contributing to his hypoxia. (5) Aspiration pneumonia Current Visit: Yes Status: Acute Assessment and Plan: Patient has right lower lobe pneumonia, likely due to aspiration. Gastrostomy tube placed this hospitalization. Patient patient completed 10 days of antibiotics. (6) COPD exacerbation Current Visit: Yes Status: Acute Assessment and Plan: Patient being treated for COPD exacerbation due to pneumonia. Completed antibiotics. We will slowly taper off prednisone to home dose of 20 mg the next several weeks. (7) LUNA (acute kidney injury) Current Visit: Yes Status: Acute Assessment and Plan: Creatinine normal at presentation, peaked at 3.64, 2.59 today, slightly worse than yesterday. Plan for HD as above. Appreciate nephrology recommendations. (8) Hypertension Current Visit: Yes Status: Chronic Assessment and Plan: Blood pressure under good control. Continue home medications. (9) Diabetes mellitus Current Visit: Yes Status: Acute Assessment and Plan: Blood sugar at goal. Continue sliding scale insulin coverage. (10) Adrenal insufficiency Current Visit: Yes Status: Acute Assessment and Plan: Continue steroid with prednisone, decreased to 30 mg yesterday, will continue for 7 days then decrease to 20 mg which is his home dose. Florinef started yesterday per nephrology recommendations (11) DVT prophylaxis Current Visit: Yes Status: Acute Assessment and Plan: Heparin 5000 units subcutaneous every 8 hours - Time Spent with Patient Total time spent is greater than 50% in coordination of care (as documented) at patient's floor/unit and/or counseling patient: Internal Medicine: Result - Labs CBC & Chem 7: 07/05/18 03:50 07/05/18 03:50 Labs: Short CBC 07/05/18 Range/Units 03:50 WBC 14.8 H (4.3-11.1) K/mcL Hgb 8.5 L (12.9-16.9) g/dL Hct 29.3 L (37.5-50.1) % Plt Count 244 (140-400) K/mcL Neutrophils # 11.2 H (1.6-8.9) K/mcL BMP 07/05/18 03:50 Sodium 144 Potassium 5.8 H Chloride 103 Carbon Dioxide 40 H* BUN 77 H Creatinine 2.59 H Glucose 92 Calcium 8.4 L Liver Function 07/05/18 Range/Units 03:50 Albumin 2.6 L (3.5-5.7) g/dL - ABG Interpretation ABG results: ABG ABG pH 7.41 pH Units (7.32-7.45) 06/23/18 05:13 ABG pCO2 58 mmHg (35-45) H 06/23/18 05:13 ABG pO2 74 mmHg (85-104) L 06/23/18 05:13 ABG O2 Saturation 94 % (95-98) L 06/23/18 05:13 - Impressions Impressions Chest X-Ray 04/19/19 14:04 IMPRESSION: A right IJ dialysis catheter has been placed. The tip is in the superior vena cava. No pneumothorax. Increased central vascular congestion and right-sided pleural effusion. Bibasilar opacity, likely atelectasis. D/ / 07/05/2018 14:39:14 Jaime Quiñones MD / sharath Interpreting Provider: Jaime Quiñones MD Consult Discharge Plan - Plan Referrals: Zachery Regalado MD [Primary Care Provider] - (5) Aspiration pneumonia Qualifiers: Aspiration pneumonia type: unspecified Lung location: lower lobe of lung Qualified Code(s): J69.0 - Pneumonitis due to inhalation of food and vomit (8) Hypertension Qualifiers: Hypertension type: essential hypertension Qualified Code(s): I10 - Essential (primary) hypertension (9) Diabetes mellitus Qualifiers: Diabetes mellitus type: type 2 Diabetes mellitus long term care pharmacist insulin use: without halfway use Qualified Code(s): E11.9 - Type 2 diabetes mellitus without complications
[2018-07-06] MEDS: *HR* HYDROcodone/Acet 5/325 mg TABLET PO PRN ×3 (00:03→13:04)
[2018-07-06] MEDS: Artificial Tears SOLN 15 ML BOTTLE BOTH EYES SCH ×6 (00:31→19:50)
[2018-07-06 04:01] LABS: Hematocrit 28.6 % (37.5-50.1); Hemoglobin 8.1 g/dL (12.9-16.9); Mean Corpuscular HGB Conc 28.3 g/dL (31.6-35.5); Mean Corpuscular Hemoglobin 28.1 pg (28.0-33.3); Mean Corpuscular Volume 99.3 fL (83.0-100.0); Platelet Count 195 K/mcL (140-400); Red Blood Count 2.88 M/mcL (4.19-5.50); Red Cell Distribution Width 14.5 % (11.5-14.5)
[2018-07-06 04:21] LABS: Calcium 8.6 mg/dL (8.6-10.3); Potassium 5.7 mEq/L (3.5-5.1)
[2018-07-06] MEDS: Ipratropium/Albuterol Neb 3 ML IH SCH ×6 (04:28→23:49)
[2018-07-06] MEDS: *HR* Heparin 5,000 UNIT/ML VIAL SQ SCH ×3 (06:28→19:38)
[2018-07-06] MEDS: Budesonide Neb 0.5 MG/2 ML IH SCH ×2 (07:39→19:30)
[2018-07-06] MEDS ORDERED: *HR* Heparin 10,000 UNIT/10 ML VIAL IV PRN (07:45)
[2018-07-06] MEDS ORDERED: 0.9 % Sodium Chloride 1,000 ML PRIME SCH (07:45)
[2018-07-06] MEDS ORDERED: 0.9 % Sodium Chloride 250 ML IVC PRN (07:45)
--- NOTE | 2018-07-06 08:34 | Internal Med Progress Note ---
Hospitalist Progress Note - Encounter Date of Encounter: 07/06/18 Time of Encounter: 08:32 - Subjective Interval History: Patient seen and examined this morning at bedside. No acute overnight events. Patient is breathing improved. Denies any chest pain abdominal pain nausea vomiting or diarrhea. Had about 750 UOP yesterday. Passing urine. - Exam Vitals: Temp Pulse Resp BP Pulse Ox 97.9 F 69 18 113/84 94 07/06/18 08:05 07/06/18 08:05 07/06/18 08:05 07/06/18 08:05 07/06/18 08:05 Exam: General: In no acute distress. Respiratory exam: no accessory muscle use. Rales at base b/l. On trach coller Cardiovascular exam: RRR, +S1, +S2. no murmur, gallop, rubs. GI/Abdominal exam: Obese, Non-tender, Non-distended, soft, no peritoneal signs. PEG tube in place Extremities exam: 2+ pedal edema in UE and LE b/l. no calf tenderness Neurological exam: CN II-XII intact, AO X3, no focal deficits. Skin exam: No skin rash - Assessment and Plan (1) Acute on chronic respiratory failure with hypoxia and hypercapnia Current Visit: Yes Status: Acute Assessment and Plan: - Still high oxygen needs - c/w HD for volume control per Nephrology. Lasix and lisinopril on temp hold. (2) Hypertension Current Visit: Yes Status: Chronic Assessment and Plan: - well control. Continue home amlodipine, coreg. Clonidine add in hospital. (3) Diabetes mellitus Current Visit: Yes Status: Acute Assessment and Plan: - c/w sliding scale insulin coverage and levemir 20 daily (4) DVT prophylaxis Current Visit: Yes Status: Acute Assessment and Plan: - on Heparin sc q8h (5) Septic shock Current Visit: Yes Status: Resolved Assessment and Plan: - Resolved. - Finished antibiotics course with zosyn for pneumonia (6) COPD exacerbation Current Visit: Yes Status: Acute Assessment and Plan: - secondary to pneumonia - Finished antibiotic course - on prednisone taper to home dose of 20 mg the next several weeks. (7) Adrenal insufficiency Current Visit: Yes Status: Acute Assessment and Plan: - on prednisone taper to home dose - c/w Florinef started per nephrology (8) LUNA (acute kidney injury) Current Visit: Yes Status: Acute Assessment and Plan: - Developed non oliguric ATN from - Started on HD per nephrology for hyperkalemia and volume management at Rt IJ temp cath placement on 07/05. - plan for HD today. (9) Hyperkalemia Current Visit: Yes Status: Acute Assessment and Plan: - Asymptomatic - possibly related to adrenal insufficiency along with LUNA from ATN. - started on HD (10) Aspiration pneumonia Current Visit: Yes Status: Acute Assessment and Plan: - Finished 10 days of antibiotics for Rt LL PNA likely due to aspiration. - s/p PEG Tube (11) Hypernatremia Current Visit: Yes Status: Acute Assessment and Plan: Resolved. - Time Spent with Patient Total time spent is greater than 50% in coordination of care (as documented) at patient's floor/unit and/or counseling patient: Internal Medicine: Result - Labs CBC & Chem 7: 07/06/18 03:35 07/06/18 03:35 Labs: Short CBC 07/06/18 Range/Units 03:35 WBC 13.7 H (4.3-11.1) K/mcL Hgb 8.1 L (12.9-16.9) g/dL Hct 28.6 L (37.5-50.1) % Plt Count 195 (140-400) K/mcL BMP 07/06/18 03:35 Sodium 141 Potassium 5.7 H Chloride 102 Carbon Dioxide 37 H BUN 63 H Creatinine 2.22 H Glucose 198 H Calcium 8.6 - ABG Interpretation ABG results: ABG ABG pH 7.41 pH Units (7.32-7.45) 06/23/18 05:13 ABG pCO2 58 mmHg (35-45) H 06/23/18 05:13 ABG pO2 74 mmHg (85-104) L 06/23/18 05:13 ABG O2 Saturation 94 % (95-98) L 06/23/18 05:13 - Impressions Impressions Guidance Ultrasound 07/05/18 00:00 IMPRESSION: Successful ultrasound guided non-tunneled temporary hemodialysis catheter placement. D/ / Miri Clay MD / Miri Clay MD Interpreting Provider: Miri Clay MD Insertion Non-Tunneled Catheter 07/05/18 00:00 IMPRESSION: Successful ultrasound guided non-tunneled temporary hemodialysis catheter placement. D/ / Miri Clay MD / Miri Clay MD Interpreting Provider: Miri Clay MD Chest X-Ray 07/05/18 14:04 IMPRESSION: A right IJ dialysis catheter has been placed. The tip is in the superior vena cava. No pneumothorax. Increased central vascular congestion and right-sided pleural effusion. Bibasilar opacity, likely atelectasis. D/ / 07/05/2018 14:39:14 Jaime Quiñones MD / [email or web address] Interpreting Provider: Jaime Quiñones MD Consult Discharge Plan - Plan Referrals: Zachery Regalado MD [Primary Care Provider] - (2) Hypertension Qualifiers: Hypertension type: essential hypertension Qualified Code(s): I10 - Essential (primary) hypertension (3) Diabetes mellitus Qualifiers: Diabetes mellitus type: type 2 Diabetes mellitus continuous churn buttermaker insulin use: without correction use Qualified Code(s): E11.9 - Type 2 diabetes mellitus without complications (10) Aspiration pneumonia Qualifiers: Aspiration pneumonia type: unspecified Lung location: lower lobe of lung Qualified Code(s): J69.0 - Pneumonitis due to inhalation of food and vomit
[2018-07-06] MEDS: Insulin LISPRO 300 UNITS/3 ML VIAL SQ SCH ×7 (09:43→21:01)
--- NOTE | 2018-07-06 10:00 | Nephrology Progress Note ---
Date of Encounter: 07/06/18 Time of Encounter: 09:58 - Assessment and Plan (1) LUNA (acute kidney injury) Current Visit: Yes Status: Acute Patient with acute kidney injury with a renal function that is relatively stable, however, he has had significant difficulty with management of his potassium. He is also had difficulty with diuretics. As the patient has been in the hospital for prolonged period of time without resolution of his nephrologic issues dialysis was started 07/05/18. The patient was seen on dialysis today. He seems to be tolerating dialysis well. We will evaluate for the need for dialysis versus ultrafiltration on Sunday. Avoid nephrotoxic agents and adjust medications for renal function. (2) Adrenal insufficiency Current Visit: Yes Status: Acute (3) Hyperkalemia Current Visit: Yes Status: Acute Hyperkalemia persists. Will treat with dialysis. (4) Peripheral edema Current Visit: Yes Status: Acute (5) Hypernatremia Current Visit: Yes Status: Acute Resolved. (6) Acute on chronic respiratory failure with hypoxia and hypercapnia Current Visit: Yes Status: Acute Per the primary team Patient with a trach. (7) Diabetes mellitus Current Visit: Yes Status: Acute Per the primary team Qualifiers: Diabetes mellitus type: type 2 Diabetes mellitus fdc insulin use: without middle or intermediate school principal use Qualified Code(s): E11.9 - Type 2 diabetes mellitus without complications Subjective Principal diagnosis: Pneumonia Interval history: Patient seen and evaluated while on dialysis. He has a trach. He has no new complaints. His review of systems is either negative or stable Objective - Vital Signs Vital signs: Vital Signs Temp Pulse Resp BP Pulse Ox 07/06/18 08:05 97.9 F 69 18 113/84 94 07/06/18 07:41 16 94 07/06/18 04:28 16 91 07/06/18 03:52 98.4 F 62 16 127/55 96 07/06/18 00:05 98.1 F 75 16 104/72 97 07/05/18 23:51 18 93 07/05/18 21:35 84 97/73 97 07/05/18 20:15 18 96 07/05/18 19:43 98.2 F 73 16 108/58 94 07/05/18 17:50 96.8 F L 15 131/81 07/05/18 17:30 119/78 07/05/18 17:15 118/67 07/05/18 17:00 114/58 07/05/18 16:45 120/81 07/05/18 16:30 127/73 07/05/18 16:15 131/69 07/05/18 16:00 111/69 07/05/18 15:45 99/51 07/05/18 15:30 96.9 F L 15 103/57 07/05/18 11:10 14 95 07/05/18 11:03 98.3 F 72 18 120/62 98 Intake and Output 07/05/18 07/06/18 07/06/18 23:59 07:59 15:59 Intake Total 240 / 240 240 / 240 Output Total 2500 / 2500 660 / 660 Balance -2260 / -2260 -420 / -420 Intake: Oral 240 / 240 240 / 240 Output: Urine 0 / 0 660 / 660 Gastric Tube Lavage Amount 0 / 0 0 / 0 Right Upper Quadrant 0 / 0 0 / 0 Total Dialysis (HD) Output 2500 / 2500 Other: Stool Size Large Large Stool Consistency soft soft Stool Characteristics Normal for Patient Stool Color Brown # Bowel Movements 1 Weight 115.6 kg Blood Glucose* 176 148 Hemodialysis Net Fluid Removed 2000 (mL) Patient Weight 07/06/18 23:59 Weight 115.6 kg - General Appearance General appearance: Present: well-developed, well-nourished EENT: Present: ATNC Neck: Present: supple Additional Comments: A trach is in place Cardiology: Present: edema, regular rate Dialysis Vascular Access: Venous Catheter Gastrointestinal: Present: no tenderness Integumentary: Present: warm and dry Neurologic: Present: alert and oriented x3 Musculoskeletal: Present: no cyanosis Psychiatric: Present: mood/affect appropriate - Lab 07/06/18 03:35 07/06/18 03:35 Most recent lab results ABG pH 7.41 pH Units (7.32-7.45) 06/23/18 05:13 ABG pCO2 58 mmHg (35-45) H 06/23/18 05:13 ABG pO2 74 mmHg (85-104) L 06/23/18 05:13 ABG HCO3 36 mEq/L (21-27) H 06/23/18 05:13 ABG O2 Saturation 94 % (95-98) L 06/23/18 05:13 Calcium 8.6 mg/dL (8.6-10.3) 07/06/18 03:35 Phosphorus 6.0 mg/dL (2.7-4.5) H 07/05/18 03:50 Magnesium 1.5 mg/dL (1.6-2.6) L 07/05/18 03:50 Urine Creatinine 58 mg/dL 06/25/18 07:42 Urine Sodium 62.7 mEq/L 06/25/18 07:42 Consult Discharge Plan - Plan Referrals: Zachery Regalado MD [Primary Care Provider] -
[2018-07-06] MEDS: Chlorhexidine Rinse 15 ML MOUTHWASH MM SCH ×2 (12:27→19:50)
[2018-07-06] MEDS: predniSONE 10 MG TABLET PO SCH (13:03)
[2018-07-06] MEDS: amLODIPine 5 MG TABLET PO SCH (13:03)
[2018-07-06] MEDS: clonazePAM 1 MG TABLET PO SCH ×2 (13:03→21:01)
[2018-07-06] MEDS: cloNIDine HCl 0.1 MG TABLET PO SCH ×2 (13:03→20:47)
[2018-07-06] MEDS: Insulin DETEMIR 100 UNIT/ML X5UNITS SQ SCH (13:06)
[2018-07-07] MEDS: Artificial Tears SOLN 15 ML BOTTLE BOTH EYES SCH ×6 (00:10→20:17)
[2018-07-07 03:41] LABS: Hematocrit 28.7 % (37.5-50.1); Hemoglobin 8.4 g/dL (12.9-16.9); Mean Corpuscular HGB Conc 29.3 g/dL (31.6-35.5); Mean Corpuscular Hemoglobin 28.7 pg (28.0-33.3); Mean Platelet Volume 10.2 fL (9.4-12.4); Platelet Count 196 K/mcL (140-400); Red Blood Count 2.93 M/mcL (4.19-5.50); Red Cell Distribution Width 14.3 % (11.5-14.5)
[2018-07-07] MEDS: Ipratropium/Albuterol Neb 3 ML IH SCH ×6 (03:47→23:10)
[2018-07-07 03:59] LABS: Calcium 8.9 mg/dL (8.6-10.3); Potassium 5.6 mEq/L (3.5-5.1)
[2018-07-07] MEDS: *HR* Heparin 5,000 UNIT/ML VIAL SQ SCH ×3 (04:21→20:17)
[2018-07-07 07:34] LABS: ANA IgG by ELISA NONE DETECTED (None Detected)
[2018-07-07] MEDS: predniSONE 10 MG TABLET PO SCH (07:52)
[2018-07-07] MEDS: clonazePAM 1 MG TABLET PO SCH ×2 (07:52→20:58)
[2018-07-07] MEDS: *HR* HYDROcodone/Acet 5/325 mg TABLET PO PRN ×2 (07:52→18:54)
[2018-07-07] MEDS: cloNIDine HCl 0.1 MG TABLET PO SCH ×2 (07:52→20:17)
[2018-07-07] MEDS: Insulin LISPRO 300 UNITS/3 ML VIAL SQ SCH ×7 (07:53→21:00)
[2018-07-07] MEDS: Budesonide Neb 0.5 MG/2 ML IH SCH ×2 (07:56→20:12)
[2018-07-07] MEDS: Chlorhexidine Rinse 15 ML MOUTHWASH MM SCH ×2 (08:00→20:17)
[2018-07-07] MEDS: Insulin DETEMIR 100 UNIT/ML X5UNITS SQ SCH (08:00)
[2018-07-07] MEDS: amLODIPine 5 MG TABLET PO SCH (08:00)
--- NOTE | 2018-07-07 09:48 | Nephrology Progress Note ---
Date of Encounter: 07/07/18 Time of Encounter: 09:48 - Assessment and Plan (1) LUNA (acute kidney injury) Current Visit: Yes Status: Acute Patient with acute kidney injury with a renal function that is relatively stable, however, he has had significant difficulty with management of his potassium. He is also had difficulty with diuretics. As the patient has been in the hospital for prolonged period of time without resolution of his nephrologic issues dialysis was started 07/05/18. We will evaluate for the need for dialysis versus ultrafiltration on Sunday. Avoid nephrotoxic agents and adjust medications for renal function. (2) Adrenal insufficiency Current Visit: Yes Status: Acute (3) Hyperkalemia Current Visit: Yes Status: Acute (4) Peripheral edema Current Visit: Yes Status: Acute (5) Hypernatremia Current Visit: Yes Status: Acute (6) Acute on chronic respiratory failure with hypoxia and hypercapnia Current Visit: Yes Status: Acute (7) Diabetes mellitus Current Visit: Yes Status: Acute Qualifiers: Diabetes mellitus type: type 2 Diabetes mellitus prison insulin use: without prison use Qualified Code(s): E11.9 - Type 2 diabetes mellitus without complications Subjective Principal diagnosis: Pneumonia Interval history: Patient seen. He is asleep. . He has a trach. Objective - Vital Signs Vital signs: Vital Signs Temp Pulse Resp BP Pulse Ox 07/07/18 07:58 18 88 07/07/18 07:45 98.1 F 83 18 116/46 97 07/07/18 03:47 20 93 07/07/18 03:13 98.1 F 69 16 95/85 97 07/06/18 23:50 20 92 07/06/18 23:18 98.8 F 71 18 101/79 97 07/06/18 19:31 98.3 F 76 18 101/79 93 07/06/18 16:42 98.2 F 74 20 114/91 92 07/06/18 14:36 19 94 07/06/18 12:45 96 F L 17 157/81 07/06/18 12:15 113/81 07/06/18 12:00 130/86 07/06/18 11:45 126/83 07/06/18 11:30 124/82 07/06/18 11:15 132/81 07/06/18 11:00 148/79 04/20/19 10:45 154/76 07/06/18 10:30 147/78 07/06/18 10:15 145/79 07/06/18 10:00 138/73 Intake and Output 07/06/18 07/07/18 07/07/18 23:59 07:59 15:59 Intake Total 0 / 0 0 / 0 Output Total 450 / 450 200 / 200 200 / 200 Balance -450 / -450 -200 / -200 -200 / -200 Intake: Oral 0 / 0 0 / 0 Free Water Intake Amount 0 / 0 0 / 0 Output: Urine 450 / 450 200 / 200 200 / 200 Other: Stool Size Moderate Stool Consistency soft Stool Color Brown # Bowel Movements 1 Weight 112.2 kg Blood Glucose* 227 291 Patient Weight 07/07/18 23:59 Weight 112.2 kg - General Appearance General appearance: Present: well-developed, well-nourished EENT: Present: ATNC Neck: Present: supple Cardiology: Present: regular rate Dialysis Vascular Access: Venous Catheter - Lab 07/07/18 03:34 07/07/18 03:34 Most recent lab results ABG pH 7.41 pH Units (7.32-7.45) 06/23/18 05:13 ABG pCO2 58 mmHg (35-45) H 06/23/18 05:13 ABG pO2 74 mmHg (85-104) L 06/23/18 05:13 ABG HCO3 36 mEq/L (21-27) H 06/23/18 05:13 ABG O2 Saturation 94 % (95-98) L 06/23/18 05:13 Calcium 8.9 mg/dL (8.6-10.3) 07/07/18 03:34 Phosphorus 6.0 mg/dL (2.7-4.5) H 07/05/18 03:50 Magnesium 1.5 mg/dL (1.6-2.6) L 07/05/18 03:50 Urine Creatinine 58 mg/dL 06/25/18 07:42 Urine Sodium 62.7 mEq/L 06/25/18 07:42 Consult Discharge Plan - Plan Referrals: Zachery Regalado MD [Primary Care Provider] -
--- NOTE | 2018-07-07 15:06 | Internal Med Progress Note ---
Hospitalist Progress Note - Encounter Date of Encounter: 07/07/18 Time of Encounter: 09:38 - Subjective Interval History: Patient seen and examined this morning at present, no acute overnight events. Denies any chest pain. Breathing improved however still any significant oxygen she is being titrated down, now to 80% FiO2. - Exam Vitals: Temp Pulse Resp BP Pulse Ox 98.1 F 73 16 113/71 94 07/07/18 11:29 07/07/18 11:29 07/07/18 11:36 07/07/18 11:29 07/07/18 11:36 Exam: General: In no acute distress. Respiratory exam: no accessory muscle use. Rales at base b/l. On trach coller Cardiovascular exam: RRR, +S1, +S2. no murmur, gallop, rubs. GI/Abdominal exam: Obese, Non-tender, Non-distended, soft, no peritoneal signs. PEG tube in place Extremities exam: 2+ pedal edema in UE and LE b/l. no calf tenderness Neurological exam: CN II-XII intact, AO X3, no focal deficits. Skin exam: No skin rash - Assessment and Plan (1) Acute on chronic respiratory failure with hypoxia and hypercapnia Current Visit: Yes Status: Acute (2) Hypertension Current Visit: Yes Status: Chronic (3) Diabetes mellitus Current Visit: Yes Status: Acute (4) DVT prophylaxis Current Visit: Yes Status: Acute (5) Septic shock Current Visit: Yes Status: Resolved (6) COPD exacerbation Current Visit: Yes Status: Acute (7) Adrenal insufficiency Current Visit: Yes Status: Acute (8) LUNA (acute kidney injury) Current Visit: Yes Status: Acute (9) Hyperkalemia Current Visit: Yes Status: Acute (10) Aspiration pneumonia Current Visit: Yes Status: Acute (11) Hypernatremia Current Visit: Yes Status: Acute - Summary of Assessment and Plan Summary of Assessment and Plan: LUNA - Developed non oliguric ATN after sepsis - Started on HD per nephrology for hyperkalemia and volume management at Rt IJ temp cath placement on 07/05. - continue monitoring renal function for further need for dialysis - Nephrology recommendation appreciated. Acute on chronic respiratory failure with hypoxia and hypercapnia - s/p chronic trach - Still high oxygen needs - likely secondary to volume overload on baseline COPD and possibly Obesity hypoventilation. - c/w HD for volume control per Nephrology. Lasix and lisinopril on temp hold. Hypertension - well controlled - Continue home amlodipine, coreg. Clonidine added in hospital. Diabetes mellitus - c/w sliding scale insulin coverage with accuchecks and levemir 20 daily Septic shock - Resolved. - Finished antibiotics course COPD exacerbation - secondary to pneumonia - Finished antibiotic course - on prednisone taper to home dose of 20 mg the next 14 days. - c/w budesonide Adrenal insufficiency - on prednisone taper to home dose - c/w Florinef started per nephrology Hyperkalemia - Asymptomatic - possibly related to adrenal insufficiency along with LUNA from ATN. - started on HD 2 sessions. - improved. Aspiration pneumonia - Finished 10 days of antibiotics for Rt LL PNA likely due to aspiration. - s/p PEG Tube - Time Spent with Patient Total time spent is greater than 50% in coordination of care (as documented) at patient's floor/unit and/or counseling patient: Internal Medicine: Result - Labs CBC & Chem 7: 07/07/18 03:34 07/07/18 03:34 Labs: Short CBC 07/07/18 Range/Units 03:34 WBC 14.2 H (4.3-11.1) K/mcL Hgb 8.4 L (12.9-16.9) g/dL Hct 28.7 L (37.5-50.1) % Plt Count 196 (140-400) K/mcL BMP 07/07/18 03:34 Sodium 142 Potassium 5.6 H Chloride 101 Carbon Dioxide 37 H BUN 46 H Creatinine 2.01 H Glucose 164 H Calcium 8.9 - ABG Interpretation ABG results: ABG ABG pH 7.41 pH Units (7.32-7.45) 06/23/18 05:13 ABG pCO2 58 mmHg (35-45) H 06/23/18 05:13 ABG pO2 74 mmHg (85-104) L 06/23/18 05:13 ABG O2 Saturation 94 % (95-98) L 06/23/18 05:13 Consult Discharge Plan - Plan Referrals: Zachery Regalado MD [Primary Care Provider] - (2) Hypertension Qualifiers: Hypertension type: essential hypertension Qualified Code(s): I10 - Essential (primary) hypertension (3) Diabetes mellitus Qualifiers: Diabetes mellitus type: type 2 Diabetes mellitus doping supervisor insulin use: without doping supervisor use (10) Aspiration pneumonia Qualifiers: Aspiration pneumonia type: unspecified Laterality: right Lung location: lower lobe of lung Qualified Code(s): J69.0 - Pneumonitis due to inhalation of food and vomit
[2018-07-07 15:14] LABS: Kappa Qnt Free Light Chains 2.06 mg/dL (0.33-1.94); Lambda Qnt Free Light Chains 1.27 mg/dL (0.57-2.63)
[2018-07-08 03:16] LABS: Alpha 2 Globulin (PEP) 1.03 g/dL (0.48-1.05); Beta Globulin (PEP) 0.67 g/dL (0.48-1.10)
[2018-07-08] MEDS: Ipratropium/Albuterol Neb 3 ML IH SCH ×6 (04:32→23:51)
[2018-07-08 05:33] LABS: Hematocrit 27.3 % (37.5-50.1); Mean Corpuscular HGB Conc 29.3 g/dL (31.6-35.5); Mean Corpuscular Hemoglobin 28.7 pg (28.0-33.3); Mean Corpuscular Volume 97.8 fL (83.0-100.0); Mean Platelet Volume 9.5 fL (9.4-12.4); Platelet Count 185 K/mcL (140-400); Red Blood Count 2.79 M/mcL (4.19-5.50); Red Cell Distribution Width 14.5 % (11.5-14.5)
[2018-07-08 05:53] LABS: Calcium 8.6 mg/dL (8.6-10.3)
[2018-07-08] MEDS: Artificial Tears SOLN 15 ML BOTTLE BOTH EYES SCH ×6 (06:46→21:30)
[2018-07-08] MEDS: *HR* Heparin 5,000 UNIT/ML VIAL SQ SCH ×3 (06:47→21:30)
[2018-07-08] MEDS: Budesonide Neb 0.5 MG/2 ML IH SCH ×2 (08:03→23:51)
[2018-07-08] MEDS: Insulin LISPRO 300 UNITS/3 ML VIAL SQ SCH ×7 (08:04→21:30)
[2018-07-08] MEDS: Chlorhexidine Rinse 15 ML MOUTHWASH MM SCH ×2 (08:08→21:29)
[2018-07-08] MEDS: cloNIDine HCl 0.1 MG TABLET PO SCH (08:08)
[2018-07-08] MEDS: amLODIPine 5 MG TABLET PO SCH (08:51)
[2018-07-08] MEDS: clonazePAM 1 MG TABLET PO SCH ×2 (08:51→21:28)
[2018-07-08] MEDS: predniSONE 10 MG TABLET PO SCH (08:51)
[2018-07-08] MEDS: *HR* HYDROcodone/Acet 5/325 mg TABLET PO PRN ×2 (08:52→21:29)
--- NOTE | 2018-07-08 09:38 | Internal Med Progress Note ---
Hospitalist Progress Note - Encounter Date of Encounter: 07/08/18 Time of Encounter: 09:37 - Subjective Interval History: Patient seen and examined this morning at bedside. No acute overnight events. Denies any difficulty breathing chest pain abdominal pain or any other complaints. At approximately 700CC urine output yesterday. Afebrile. - Exam Vitals: Temp Pulse Resp BP Pulse Ox 97.9 F 68 18 92/85 98 07/08/18 07:18 07/08/18 07:18 07/08/18 07:18 07/08/18 07:18 07/08/18 07:18 Exam: General: In no acute distress. Respiratory exam: no accessory muscle use. Rales at base b/l. On trach coller Cardiovascular exam: RRR, +S1, +S2. no murmur, gallop, rubs. GI/Abdominal exam: Obese, Non-tender, Non-distended, soft, no peritoneal signs. Extremities exam: 2+ pedal edema in UE and LE b/l. no calf tenderness Neurological exam: CN II-XII intact, AO X3, no focal deficits. Skin exam: No skin rash - Assessment and Plan (1) Acute on chronic respiratory failure with hypoxia and hypercapnia Current Visit: Yes Status: Acute (2) Hypertension Current Visit: Yes Status: Chronic (3) Diabetes mellitus Current Visit: Yes Status: Acute (4) DVT prophylaxis Current Visit: Yes Status: Acute (5) Septic shock Current Visit: Yes Status: Resolved (6) COPD exacerbation Current Visit: Yes Status: Acute (7) Adrenal insufficiency Current Visit: Yes Status: Acute (8) LUNA (acute kidney injury) Current Visit: Yes Status: Acute (9) Hyperkalemia Current Visit: Yes Status: Acute (10) Aspiration pneumonia Current Visit: Yes Status: Acute (11) Hypernatremia Current Visit: Yes Status: Acute - Summary of Assessment and Plan Summary of Assessment and Plan: LUNA - Developed non oliguric ATN after sepsis - Started on HD per nephrology for hyperkalemia and volume management at Rt IJ temp cath placement on 07/05. - Nephrology recommendation appreciated. Has hyperkalemia and Hyperatremia today. Plan for Permacath placement and dialysis after. Acute on chronic respiratory failure with hypoxia and hypercapnia - s/p chronic trach - Still high oxygen needs - likely secondary to volume overload on baseline COPD and possibly Obesity hypoventilation. - c/w HD for volume control per Nephrology. Lasix and lisinopril on temp hold. Hypertension - On lower end. hold home amlodipine and coreg. stop clonidine which was started in hospital Diabetes mellitus - c/w sliding scale insulin coverage with accuchecks and levemir 20 daily - will stop metformin on discharge Septic shock - Resolved. - Finished antibiotics course COPD exacerbation - secondary to pneumonia - Finished antibiotic course - on prednisone taper to home dose of 20 mg over 14 days. Keep on PPI. - c/w budesonide Adrenal insufficiency - on prednisone taper to home dose - c/w Florinef started per nephrology Hyperkalemia - Asymptomatic - possibly related to adrenal insufficiency along with LUNA from ATN. - started on HD Aspiration pneumonia - Finished 10 days of antibiotics for Rt LL PNA likely due to aspiration. - s/p PEG Tube - Time Spent with Patient Total time spent is greater than 50% in coordination of care (as documented) at patient's floor/unit and/or counseling patient: Internal Medicine: Result - Labs CBC & Chem 7: 07/08/18 05:12 07/08/18 05:12 Labs: Short CBC 07/08/18 Range/Units 05:12 WBC 12.6 H (4.3-11.1) K/mcL Hgb 8.0 L (12.9-16.9) g/dL Hct 27.3 L (37.5-50.1) % Plt Count 185 (140-400) K/mcL BMP 07/08/18 05:12 Sodium 146 H Potassium 6.0 H Chloride 104 Carbon Dioxide 36 H BUN 57 H Creatinine 2.31 H Glucose 112 H Calcium 8.6 - ABG Interpretation ABG results: ABG ABG pH 7.41 pH Units (7.32-7.45) 06/23/18 05:13 ABG pCO2 58 mmHg (35-45) H 06/23/18 05:13 ABG pO2 74 mmHg (85-104) L 06/23/18 05:13 ABG O2 Saturation 94 % (95-98) L 06/23/18 05:13 Consult Discharge Plan - Plan Referrals: Zachery Regalado MD [Primary Care Provider] - (2) Hypertension Qualifiers: Hypertension type: essential hypertension Qualified Code(s): I10 - Essential (primary) hypertension (3) Diabetes mellitus Qualifiers: Diabetes mellitus type: type 2 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
[2018-07-08] MEDS ORDERED: *HR* Heparin 10,000 UNIT/10 ML VIAL IV PRN (09:39)
[2018-07-08] MEDS ORDERED: 0.9 % Sodium Chloride 250 ML IVC PRN (09:39)
[2018-07-08] MEDS: Pantoprazole 40 MG VIAL IVP SCH (09:42)
[2018-07-08] MEDS ORDERED: 0.9 % Sodium Chloride 1,000 ML PRIME SCH (09:45)
[2018-07-08 11:27] LABS: Myeloperoxidase Ab 0 AU/mL (0-19); Serine Protease-3 Antibody 1 AU/mL (0-19)
[2018-07-08 11:37] LABS: IFE Reflexed IFE Done; Immunoglobulin A 181 mg/dL (68-408); Immunoglobulin G 400 mg/dL (768-1632); Immunoglobulin M 57 mg/dL (35-263)
--- NOTE | 2018-07-08 12:33 | Nephrology Progress Note ---
Date of Encounter: 07/08/18 Time of Encounter: 12:33 - Assessment and Plan (1) LUNA (acute kidney injury) Current Visit: Yes Status: Acute Patient with acute kidney injury with a renal function that is relatively stable, however, he has had significant difficulty with management of his potassium. He is also had difficulty with diuretics. As the patient has been in the hospital for prolonged period of time without resolution of his nephrologic issues dialysis was started 07/05/18. We will evaluate for the need for dialysis versus ultrafiltration daily. Avoid nephrotoxic agents and adjust medications for renal function. (2) Adrenal insufficiency Current Visit: Yes Status: Acute (3) Hyperkalemia Current Visit: Yes Status: Acute (4) Peripheral edema Current Visit: Yes Status: Acute (5) Hypernatremia Current Visit: Yes Status: Acute (6) Acute on chronic respiratory failure with hypoxia and hypercapnia Current Visit: Yes Status: Acute Per the primary team Patient with a trach. (7) Diabetes mellitus Current Visit: Yes Status: Acute Qualifiers: Diabetes mellitus type: type 2 Diabetes mellitus fpc insulin use: without fpc use Qualified Code(s): E11.9 - Type 2 diabetes mellitus without complications Subjective Principal diagnosis: Pneumonia Interval history: Patient seen. He is asleep. . He has a trach. Objective - Vital Signs Vital signs: Vital Signs Temp Pulse Resp BP Pulse Ox 07/08/18 11:56 98.1 F 73 18 108/90 07/08/18 11:18 18 98 07/08/18 07:18 97.9 F 68 18 92/85 98 07/08/18 04:32 18 96 07/08/18 03:50 97.8 F 74 18 99/74 96 07/08/18 00:06 98.3 F 74 20 121/70 93 07/07/18 23:10 16 98 07/07/18 20:14 18 98 07/07/18 18:58 98.4 F 75 16 116/73 97 07/07/18 16:53 98.7 F 69 20 141/67 97 07/07/18 15:45 16 94 Intake and Output 07/07/18 07/08/18 07/08/18 23:59 07:59 15:59 Intake Total 440 / 440 120 / 120 Output Total 250 / 250 600 / 600 Balance 190 / 190 120 / 120 -600 / -600 Intake: Oral 440 / 440 120 / 120 Free Water Intake Amount 0 / 0 0 / 0 Output: Urine 250 / 250 600 / 600 Other: Meal Dinner Percent of Meal Consumed 90% Stool Size Small Stool Consistency soft Stool Characteristics Normal for Patient Stool Color Brown # Bowel Movements 1 # Bowel Movement Diapers 1 Weight 112 kg Blood Glucose* 176 103 121 Patient Weight 07/08/18 23:59 Weight 112 kg - General Appearance General appearance: Present: well-developed, well-nourished EENT: Present: ATNC Neck: Present: supple Cardiology: Present: regular rate Integumentary: Present: warm and dry Musculoskeletal: Present: no cyanosis - Lab 07/09/18 01:52 07/09/18 06:46 Most recent lab results ABG pH 7.41 pH Units (7.32-7.45) 06/23/18 05:13 ABG pCO2 58 mmHg (35-45) H 06/23/18 05:13 ABG pO2 74 mmHg (85-104) L 06/23/18 05:13 ABG HCO3 36 mEq/L (21-27) H 06/23/18 05:13 ABG O2 Saturation 94 % (95-98) L 06/23/18 05:13 Calcium 8.6 mg/dL (8.6-10.3) 07/08/18 05:12 Phosphorus 6.0 mg/dL (2.7-4.5) H 07/05/18 03:50 Magnesium 1.5 mg/dL (1.6-2.6) L 07/05/18 03:50 Urine Creatinine 58 mg/dL 06/25/18 07:42 Urine Sodium 62.7 mEq/L 06/25/18 07:42 Consult Discharge Plan - Plan Referrals: Zachery Regalado MD [Primary Care Provider] -
[2018-07-08] MEDS ORDERED: Heparin 1,000 UNITS/500 mL 500 ML ONE (15:01)
[2018-07-08] MEDS ORDERED: CeFAZolin Premix DUPLEX 2,000 MG/50 ML BAG IVPB ONE (15:28)
[2018-07-08] MEDS ORDERED: *HR* FentaNYL (PF) 100 MCG/2 ML VIAL IVP ONE (15:28)
[2018-07-08] MEDS ORDERED: *HR* FentaNYL (PF) 100 MCG/2 ML VIAL ONE (15:43)
--- NOTE | 2018-07-08 16:14 | IR Procedure Note ---
Date of procedure: 07/08/18 Consent Obtained: Written consent Timeout: Correct patient and procedure verified, Correct site verified, Time out performed, Skin prep completed Local anesthetic: Lidocaine 1% Indications: needs slab grinder HD Procedure Performed: right ij permcath Was there an news production assistant present: Yes Account Manager: Chad Alfaro Site/Technique: right IJ Results/Findings: 23 cm tip to cuff, tip right atrium Estimated blood loss (cc): 0 Complications: None; Tolerated procedure well Post Procedure Treatment Plan: ok to use catheter Specimen: NA
[2018-07-08] MEDS ORDERED: *HR* Heparin 5,000 UNIT/ML VIAL ONE (16:19)
[2018-07-08] MEDS: Insulin DETEMIR 100 UNIT/ML X5UNITS SQ SCH (16:58)
[2018-07-09] MEDS: Artificial Tears SOLN 15 ML BOTTLE BOTH EYES SCH ×6 (00:54→21:25)
[2018-07-09 02:05] LABS: Red Blood Count 2.89 M/mcL (4.19-5.50)
[2018-07-09 02:07] LABS: Hematocrit 28.1 % (37.5-50.1); Hemoglobin 8.2 g/dL (12.9-16.9); Mean Corpuscular HGB Conc 29.2 g/dL (31.6-35.5); Mean Corpuscular Hemoglobin 28.4 pg (28.0-33.3); Mean Corpuscular Volume 97.2 fL (83.0-100.0); Mean Platelet Volume 10.6 fL (9.4-12.4); Platelet Count 193 K/mcL (140-400); Red Cell Distribution Width 14.6 % (11.5-14.5)
[2018-07-09] MEDS: Ipratropium/Albuterol Neb 3 ML IH SCH ×6 (03:46→23:22)
[2018-07-09] MEDS: *HR* Heparin 5,000 UNIT/ML VIAL SQ SCH ×3 (05:22→21:26)
[2018-07-09 07:22] LABS: Potassium 5.1 mEq/L (3.5-5.1)
[2018-07-09] MEDS: Budesonide Neb 0.5 MG/2 ML IH SCH ×2 (07:57→19:24)
--- NOTE | 2018-07-09 08:07 | Internal Med Progress Note ---
Hospitalist Progress Note - Encounter Date of Encounter: 07/09/18 Time of Encounter: 08:12 - Subjective Interval History: Patient seen and examined this morning. No acute overnight events. Denies any dyspnea feel difficulty breathing, chest pain, dull pain bowel or urinary complaints. Denies any diarrhea or dark color stool or bright red blood per re ctum. Is urinating well. - Exam Vitals: Temp Pulse Resp BP Pulse Ox 97.9 F 65 20 142/86 96 07/09/18 02:59 07/09/18 02:59 07/09/18 03:46 07/09/18 02:59 07/09/18 03:46 Exam: General: In no acute distress. Respiratory exam: no accessory muscle use. Rales at base b/l. On trach coller Cardiovascular exam: RRR, +S1, +S2. no murmur, gallop, rubs. GI/Abdominal exam: Obese, Non-tender, Non-distended, soft, no peritoneal signs. Extremities exam: 2+ pedal edema in UE and LE b/l. no calf tenderness Neurological exam: CN II-XII intact, AO X3, no focal deficits. Skin exam: No skin rash - Assessment and Plan (1) Acute on chronic respiratory failure with hypoxia and hypercapnia Current Visit: Yes Status: Acute (2) Hypertension Current Visit: Yes Status: Chronic (3) Diabetes mellitus Current Visit: Yes Status: Acute (4) DVT prophylaxis Current Visit: Yes Status: Acute (5) Septic shock Current Visit: Yes Status: Resolved (6) COPD exacerbation Current Visit: Yes Status: Acute (7) Adrenal insufficiency Current Visit: Yes Status: Acute (8) LUNA (acute kidney injury) Current Visit: Yes Status: Acute (9) Hyperkalemia Current Visit: Yes Status: Acute (10) Aspiration pneumonia Current Visit: Yes Status: Acute (11) Hypernatremia Current Visit: Yes Status: Acute - Summary of Assessment and Plan Summary of Assessment and Plan: LUNA - Developed non oliguric ATN after sepsis - Started on HD per nephrology for hyperkalemia and volume management at Rt IJ temp cath placement on 07/05. - Nephrology recommendation appreciated. - s/p Permacath placement on 07/08/18 and dialysis yesterday. Will have another HD today Anemia - Significant drop since admission - stable over past few days however stool occult positive. No kala melena or BRB - Has been on predniosne for a while. Was not on protonix initially - c/w protonix. Will consult GI for need for scope. Acute on chronic respiratory failure with hypoxia and hypercapnia - s/p chronic trach - likely secondary to volume overload on baseline COPD and possibly Obesity hypoventilation. - c/w HD for volume control per Nephrology. Lasix and lisinopril on temp hold. - Tapering high flow oxygen down with dialysis ultrafiltration. Still wit significant volume overload. Hypertension - On lower end. hold home lisinopril, amlodipine and coreg. stop clonidine which was started in hospital - will restart if needed. Diabetes mellitus - c/w sliding scale insulin coverage with accuchecks and levemir 20 daily - will likely stop metformin on discharge given renal function. Septic shock - Resolved. - Finished antibiotics course COPD exacerbation - secondary to pneumonia - Finished antibiotic course - on prednisone taper to home dose of 20 mg over 14 days. Keep on PPI. - c/w budesonide Adrenal insufficiency - on prednisone taper to home dose - c/w Florinef started per nephrology Hyperkalemia - Asymptomatic - possibly related to adrenal insufficiency along with LUNA from ATN. - started on HD - now resolved Aspiration pneumonia - Finished 10 days of antibiotics for Rt LL PNA likely due to aspiration. 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 Will be discharged to [place] [facility] [place]. - Time Spent with Patient Total time spent is greater than 50% in coordination of care (as documented) at patient's floor/unit and/or counseling patient: Internal Medicine: Result - Labs CBC & Chem 7: 07/09/18 01:52 07/09/18 06:46 Labs: Short CBC 07/09/18 Range/Units 01:52 WBC 10.9 (4.3-11.1) K/mcL Hgb 8.2 L (12.9-16.9) g/dL Hct 28.1 L (37.5-50.1) % Plt Count 193 (140-400) K/mcL BMP 07/09/18 06:46 Sodium 143 Potassium 5.1 Chloride 103 Carbon Dioxide 35 H BUN 36 H Creatinine 1.71 H Glucose 177 H Calcium 9.0 - ABG Interpretation ABG results: ABG ABG pH 7.41 pH Units (7.32-7.45) 06/23/18 05:13 ABG pCO2 58 mmHg (35-45) H 06/23/18 05:13 ABG pO2 74 mmHg (85-104) L 06/23/18 05:13 ABG O2 Saturation 94 % (95-98) L 06/23/18 05:13 Consult Discharge Plan - Plan Referrals: Zachery Regalado MD [Primary Care Provider] - (2) Hypertension Qualifiers: Hypertension type: essential hypertension Qualified Code(s): I10 - Essential (primary) hypertension (3) Diabetes mellitus Qualifiers: Diabetes mellitus type: type 2 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
[2018-07-09] MEDS ORDERED: *HR* Heparin 10,000 UNIT/10 ML VIAL IV PRN (08:43)
[2018-07-09] MEDS ORDERED: 0.9 % Sodium Chloride 250 ML IVC PRN (08:43)
[2018-07-09] MEDS ORDERED: 0.9 % Sodium Chloride 1,000 ML PRIME SCH (08:45)
[2018-07-09] MEDS: clonazePAM 1 MG TABLET PO SCH ×2 (08:51→21:23)
[2018-07-09] MEDS: Pantoprazole 40 MG VIAL IVP SCH (08:51)
[2018-07-09] MEDS: predniSONE 10 MG TABLET PO SCH (08:51)
[2018-07-09] MEDS: Insulin LISPRO 300 UNITS/3 ML VIAL SQ SCH ×7 (08:52→21:12)
[2018-07-09] MEDS: Insulin DETEMIR 100 UNIT/ML X5UNITS SQ SCH (08:52)
[2018-07-09] MEDS: Chlorhexidine Rinse 15 ML MOUTHWASH MM SCH ×2 (08:52→21:13)
[2018-07-09] MEDS: *HR* HYDROcodone/Acet 5/325 mg TABLET PO PRN ×3 (09:06→21:23)
--- NOTE | 2018-07-09 15:39 | Nephrology Progress Note ---
Date of Encounter: 07/09/18 Time of Encounter: 15:39 - Assessment and Plan (1) LUNA (acute kidney injury) Current Visit: Yes Status: Acute Patient with acute kidney injury with a renal function that is relatively stable, however, he has had significant difficulty with management of his potassium. He is also had difficulty with diuretics. As the patient has been in the hospital for prolonged period of time without resolution of his nephrologic issues dialysis was started 07/05/18. We will evaluate for the need for dialysis versus ultrafiltration daily. Patient was seen on dialysis. Avoid nephrotoxic agents and adjust medications for renal function. 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 He has no complaint. Objective - Vital Signs Vital signs: Vital Signs Temp Pulse Resp BP Pulse Ox 07/09/18 08:07 97.8 F 72 18 172/93 100 07/09/18 07:58 16 93 07/09/18 03:46 20 96 07/09/18 02:59 97.9 F 65 18 142/86 95 07/08/18 23:51 20 97 07/08/18 23:19 98.2 F 82 16 92/77 97 07/08/18 21:00 98.2 F 86 15 111/79 95 07/08/18 20:08 98.4 F 20 156/77 07/08/18 19:50 167/78 07/08/18 19:35 138/50 07/08/18 19:20 148/83 07/08/18 19:05 157/79 07/08/18 18:50 161/77 07/08/18 18:35 169/83 07/08/18 18:20 163/68 07/08/18 18:05 138/78 07/08/18 17:50 146/70 07/08/18 17:35 133/65 07/08/18 17:20 131/64 07/08/18 17:05 123/67 07/08/18 16:50 97.8 F 18 122/67 Intake and Output 07/08/18 07/09/18 07/09/18 23:59 07:59 15:59 Intake Total 650 / 650 250 / 250 480 / 480 Output Total 4600 / 4600 750 / 750 Balance -3950 / -3950 -500 / -500 480 / 480 Intake: IV Fluids 50 / 50 Ancef Premix DUPLEX 2,000 mg In 50 / 50 50 ml @ 100 mls/hr IVPB ONCE ONE Rx#:[id number] Oral 0 / 0 250 / 250 480 / 480 Intake, Rinseback and Flushes 600 / 600 Output: Urine 0 / 0 750 / 750 Total Dialysis (HD) Output 4600 / 4600 Other: Meal Breakfast Percent of Meal Consumed 100% Stool Size Small Stool Consistency loose Stool Color Brown # Bowel Movement Diapers 1 Weight 107.7 kg Blood Glucose* 190 83 Hemodialysis Net Fluid Removed 4000 (mL) Patient Weight 07/09/18 23:59 Weight 107.7 kg - General Appearance General appearance: Present: well-developed, well-nourished EENT: Present: ATNC Cardiology: Present: regular rate Integumentary: Present: warm and dry Neurologic: Present: alert and oriented x3 Musculoskeletal: Present: no cyanosis - Lab 07/09/18 01:52 07/09/18 06:46 Most recent lab results ABG pH 7.41 pH Units (7.32-7.45) 06/23/18 05:13 ABG pCO2 58 mmHg (35-45) H 06/23/18 05:13 ABG pO2 74 mmHg (85-104) L 06/23/18 05:13 ABG HCO3 36 mEq/L (21-27) H 06/23/18 05:13 ABG O2 Saturation 94 % (95-98) L 06/23/18 05:13 Calcium 9.0 mg/dL (8.6-10.3) 07/09/18 06:46 Phosphorus 6.0 mg/dL (2.7-4.5) H 07/05/18 03:50 Magnesium 1.5 mg/dL (1.6-2.6) L 07/05/18 03:50 Urine Creatinine 58 mg/dL 06/25/18 07:42 Urine Sodium 62.7 mEq/L 06/25/18 07:42 Consult Discharge Plan - Plan Referrals: Zachery Regalado MD [Primary Care Provider] -
--- NOTE | 2018-07-09 16:33 | Gastroenterology Consult Note ---
Date of Encounter: 07/09/18 Time of Encounter: 11:25 - Assessment and plan (1) Anemia Current Visit: Yes Status: Acute Assessment and plan: On admission Hgb 14.5 and this AM Hgb 8.2. Fecal occult blood test was positive. Continue to monitor CBC and transfuse PRBC as needed. No obvious source of bleeding. Consider EGD and colonoscopy once stable. Continue PPI. Change to clear liquid diet. Qualifiers: Anemia type: unspecified type Qualified Code(s): D64.9 - Anemia, unspecified (2) LUNA (acute kidney injury) Current Visit: Yes Status: Acute Assessment and plan: Management per Nephrology. (3) Acute on chronic respiratory failure with hypoxia and hypercapnia Current Visit: Yes Status: Acute Assessment and plan: Management per primary team. (4) Aspiration pneumonia Current Visit: Yes Status: Acute Qualifiers: Aspiration pneumonia type: unspecified Laterality: right Lung location: lower lobe of lung Qualified Code(s): J69.0 - Pneumonitis due to inhalation of food and vomit - Time Spent With Patient Total time spent is greater than 50% in coordination of care (as documented) at patient's floor/unit and/or counseling patient: GI History of Present Illness - Data of Consult Patient: new to practice Consult date: 07/09/18 Requesting Physician: Shannan Flores MD - Consult Narrative Reason for consult: anemia History of present illness: Mr. Lubin is a 63 year old male with PMHx of COPD, DM type 2, HTN, chronic respiratory failure and received tracheostomy 2 months ago. He was admitted to ICU on 06/21 due to septic shock and acute on chronic respiratory failure secondar y to RLL PNA. Successfully weaned off on pressors and to trach collar. Due to the concern for recurrent aspiration, PEG tube was placed 06/23/18. Hgb has down trended since admission. On admission Hgb 14.5 and this AM Hgb 8.2. Fecal occult blood test was positive. No obvious bleeding noted. We were consulted to evaluate his anemia. Procedures: None NSAIDs: None Anticoagulation: None Past Med Surg Social Fam HX - Past Medical History Medical history: COPD, diabetes, GERD, hypertension, other (Chronic respiratory failure, metabolic encephalopathy, morbid obesity, pickwickian syndrome) Additional medical history: RESPIRATORY FAILURE/TRACH/VENT DEPENDENT Psychiatric history: no psych history - Past Surgical History Surgical History: tracheostomy - Social History Smoking Status: Former smoker Alcohol use: none Drug use: none - Gastrointestinal Gastrointestinal: Present: as per HPI - Constitutional Constitutional: as per HPI - EENT Eyes: as per HPI Ears: Present: as per HPI Nose, mouth and throat: Present: as per HPI - Cardiovascular Cardiovascular ROS: Present: as per HPI - Respiratory Respiratory IM: Present: as per HPI - Genitourinary Genitourinary: Absent: change in color, Urinary frequency - Neurological ROS Neurological GI: Present: as per HPI - Hematologic/Lymphatic Hematologic/Lymphatic pediatric: Present: as per HPI - Musculoskeletal Musculoskeletal ROS GI: Present: as per HPI - Integumentary Integumentary GI: Present: as per HPI - Psychiatric ROS Psychiatric GI: Present: as per HPI - Endocrine Endocrine IM: Present: as per HPI - Constitutional Vitals: Temp Pulse Resp BP Pulse Ox 97.8 F 72 18 172/93 100 07/09/18 08:07 07/09/18 08:07 07/09/18 08:07 07/09/18 08:07 07/09/18 08:07 General appearance: Present: cooperative, A&O X 3, no acute distress, answers questions appropriately - Head Head exam: Present: atraumatic, normocephalic - Eye Eye exam: Present: normal appearance, sclera anicteric - ENT ENT exam: Present: mucous membranes dry - Neck Neck exam general surgery: Present: trachea midline Additional comments: Tracheostomy in place - Respiratory Respiratory exam: Present: CTAB - Cardiovascular Cardiovascular exam: Present: RRR, +S1, +S2 - GI/Abdominal GI/Abdominal exam: Present: soft, no peritoneal signs. Absent: distended, firm, guarding, tenderness Additional comments: PEG tub in place - Rectal Rectal exam: Present: deferred - Extremities Exam Extremities exam: Present: warm - Neurological Exam Neurological exam: Present: no focal deficits - Psychiatric Psychiatric exam: Present: normal affect, normal mood - Skin Skin exam: Present: dry, intact, normal color, warm Results - Labs CBC & Chem 7: 07/09/18 01:52 07/09/18 06:46 Labs: Last Result Calcium 9.0 mg/dL (8.6-10.3) 07/09/18 06:46 Troponin I 0.05 ng/mL (< 0.04) H* 06/21/18 20:25 Stool Occult Blood Positive (Negative) A 07/08/18 21:35 Entire Visit Hgb 8.2 g/dL (12.9-16.9) L 07/09/18 01:52 Hct 28.1 % (37.5-50.1) L 07/09/18 01:52 Total Bilirubin 0.4 mg/dL (0.3-1.0) 06/21/18 13:45 AST 9 Units/L (13-39) L 06/21/18 13:45 ALT 17 Units/L (7-52) 06/21/18 13:45 - ABG ABG results: ABG ABG pH 7.41 pH Units (7.32-7.45) 06/23/18 05:13 ABG pCO2 58 mmHg (35-45) H 06/23/18 05:13 ABG pO2 74 mmHg (85-104) L 06/23/18 05:13 ABG O2 Saturation 94 % (95-98) L 06/23/18 05:13 Consult Discharge Plan - Plan Referrals: Zachery Regalado MD [Primary Care Provider] -
[2018-07-10] MEDS: Artificial Tears SOLN 15 ML BOTTLE BOTH EYES SCH ×6 (01:01→20:56)
[2018-07-10] MEDS: Ipratropium/Albuterol Neb 3 ML IH SCH ×5 (03:32→20:22)
[2018-07-10] MEDS: Budesonide Neb 0.5 MG/2 ML IH SCH ×2 (07:17→20:22)
[2018-07-10 07:45] LABS: Calcium 9.2 mg/dL (8.6-10.3); Potassium 4.9 mEq/L (3.5-5.1)
[2018-07-10] MEDS: Insulin LISPRO 300 UNITS/3 ML VIAL SQ SCH ×7 (08:39→20:56)
[2018-07-10] MEDS: Pantoprazole 40 MG VIAL IVP SCH (08:40)
[2018-07-10] MEDS: predniSONE 10 MG TABLET PO SCH (08:40)
[2018-07-10] MEDS: clonazePAM 1 MG TABLET PO SCH ×2 (08:40→20:55)
[2018-07-10] MEDS: Insulin DETEMIR 100 UNIT/ML X5UNITS SQ SCH (08:41)
[2018-07-10] MEDS: Chlorhexidine Rinse 15 ML MOUTHWASH MM SCH ×2 (08:53→20:56)
[2018-07-10] MEDS ORDERED: 0.9 % Sodium Chloride 250 ML IVC PRN (11:28)
[2018-07-10] MEDS ORDERED: *HR* Heparin 10,000 UNIT/10 ML VIAL IV PRN (11:28)
[2018-07-10] MEDS ORDERED: 0.9 % Sodium Chloride 1,000 ML PRIME SCH (11:30)
--- NOTE | 2018-07-10 16:14 | Nephrology Progress Note ---
Date of Encounter: 07/10/18 Time of Encounter: 16:13 - Assessment and Plan (1) LUNA (acute kidney injury) Current Visit: Yes Status: Acute Patient with acute kidney injury with a renal function that is relatively stable, however, he has had significant difficulty with management of his potassium. He is also had difficulty with diuretics. As the patient has been in the hospital for prolonged period of time without resolution of his nephrologic issues dialysis was started 07/05/18. We will evaluate for the need for dialysis versus ultrafiltration daily. Will hold dialysis today and give lasix. Avoid nephrotoxic agents and adjust medications for renal function. (2) Adrenal insufficiency Current Visit: Yes Status: Acute (3) Hyperkalemia Current Visit: Yes Status: Acute Improved with repeat dialysis. Will start loop diuretic and monitor. 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 His daughter is at his bedside. He has no new complaints, but wants a break from dialysis. Objective - Vital Signs Vital signs: Vital Signs Temp Pulse Resp BP Pulse Ox 07/10/18 15:47 18 96 07/10/18 11:50 98.0 F 80 16 124/69 92 07/10/18 11:06 18 96 07/10/18 11:00 80 07/10/18 07:25 98.2 F 83 18 158/84 92 07/10/18 07:17 18 93 07/10/18 07:00 83 07/10/18 03:33 18 94 07/10/18 03:27 98.1 F 81 18 169/103 94 07/09/18 23:53 98.0 F 86 20 163/92 95 07/09/18 23:22 20 87 07/09/18 19:39 97.6 F 87 18 148/72 07/09/18 19:24 17 95 07/09/18 16:52 98.6 F 97 18 158/87 92 07/09/18 16:36 16 92 Intake and Output 07/10/18 07/10/18 07/10/18 07:59 15:59 23:59 Intake Total 0 / 0 420 / 420 Output Total 375 / 375 500 / 500 Balance -375 / -375 -80 / -80 Intake: Oral 0 / 0 420 / 420 Output: Urine 375 / 375 500 / 500 Other: Meal Lunch Percent of Meal Consumed 0% Stool Size Large Stool Consistency soft Stool Color Brown # Bowel Movements 1 Weight 103.2 kg Blood Glucose* 113 174 Patient Weight 07/10/18 23:59 Weight 103.2 kg - General Appearance General appearance: Present: well-developed, well-nourished, obese EENT: Present: ATNC Cardiology: Present: regular rate Dialysis Vascular Access: Venous Catheter Integumentary: Present: warm and dry Neurologic: Present: alert and oriented x3 Musculoskeletal: Present: no cyanosis Psychiatric: Present: mood/affect appropriate - Lab 07/09/18 01:52 07/10/18 07:01 Most recent lab results ABG pH 7.41 pH Units (7.32-7.45) 06/23/18 05:13 ABG pCO2 58 mmHg (35-45) H 06/23/18 05:13 ABG pO2 74 mmHg (85-104) L 06/23/18 05:13 ABG HCO3 36 mEq/L (21-27) H 06/23/18 05:13 ABG O2 Saturation 94 % (95-98) L 06/23/18 05:13 Calcium 9.2 mg/dL (8.6-10.3) 07/10/18 07:01 Phosphorus 6.0 mg/dL (2.7-4.5) H 07/05/18 03:50 Magnesium 1.5 mg/dL (1.6-2.6) L 07/05/18 03:50 Urine Creatinine 58 mg/dL 06/25/18 07:42 Urine Sodium 62.7 mEq/L 06/25/18 07:42 Consult Discharge Plan - Plan Referrals: Zachery Regalado MD [Primary Care Provider] -
[2018-07-10] MEDS ORDERED: Furosemide 40 MG/4 ML VIAL IVP ONE (17:28)
[2018-07-10] MEDS: *HR* HYDROcodone/Acet 5/325 mg TABLET PO PRN (20:56)
--- NOTE | 2018-07-10 21:45 | Internal Med Progress Note ---
Hospitalist Progress Note - Encounter Date of Encounter: 07/10/18 Time of Encounter: 19:00 - Subjective Interval History: SUBJECTIVE: The patient is feeling good. However, he continues to have 10 L/min nasal cannula oxygen; 4 L/min before this hospitalization. He has mild cough but not wheezing. Denies abdominal pain, nausea and vomiting. He basically does not make any urine. He has been restarted on hemodialysis on 07/05. OBJECTIVE: Skin: Free of rash and discoloration. ENMT: Oral/pharyngeal mucosa is normal in appearance. Eyes: Sclera is white. There is no discharge from eyes. Respiratory: Normal breath sounds; no crackles or wheezes. CV: Heart is regular; no gallop or murmur. GI: Abdomen is soft and not tender. There is no palpable mass or visceromegaly. Neuro: There is no focal deficits. ADDITIONAL DATA: He has normal electrolytes. His creatinine is 1.89. He had creatinine of 0.89 on 06/21/18. I am ordering chest x-ray. ASSESSMENT AND PLAN: COPD exacerbation/acute on chronic respiratory failure with hypoxia and hypercapnia. To continue prednisone and nebulizer treatments with DuoNeb. I am repeating his chest x-ray tomorrow morning. Acute kidney injury. See notes from nephrology. Type 2 diabetes mellitus. He was on metformin at home. Currently, he takes Levemir and when necessary Humalog. He has underlying adrenal insufficiency. Continue Florinef. Hyperkalemia and hypernatremia. Managed by dialysis. - Exam Vitals: Temp Pulse Resp BP Pulse Ox 98.3 F 91 18 164/118 93 07/10/18 19:41 07/10/18 19:41 07/10/18 20:25 07/10/18 19:41 07/10/18 20:25 Exam: xx - Assessment and Plan (1) COPD exacerbation Current Visit: Yes Status: Acute (2) Acute on chronic respiratory failure with hypoxia and hypercapnia Current Visit: Yes Status: Acute (3) LUNA (acute kidney injury) Current Visit: Yes Status: Acute (4) Diabetes mellitus Current Visit: Yes Status: Chronic (5) Adrenal insufficiency Current Visit: Yes Status: Acute (6) Hyperkalemia Current Visit: Yes Status: Acute (7) Hypernatremia Current Visit: Yes Status: Acute (8) Septic shock Current Visit: Yes Status: Resolved - Time Spent with Patient Total time spent is greater than 50% in coordination of care (as documented) at patient's floor/unit and/or counseling patient: 25 - 35 minutes Plan of Care Discussed with: patient Internal Medicine: Result - Labs CBC & Chem 7: 07/09/18 01:52 07/10/18 07:01 Labs: BMP 07/10/18 07:01 Sodium 137 Potassium 4.9 Chloride 100 Carbon Dioxide 29 BUN 33 H Creatinine 1.89 H Glucose 112 H Calcium 9.2 - ABG Interpretation ABG results: ABG ABG pH 7.41 pH Units (7.32-7.45) 06/23/18 05:13 ABG pCO2 58 mmHg (35-45) H 06/23/18 05:13 ABG pO2 74 mmHg (85-104) L 06/23/18 05:13 ABG O2 Saturation 94 % (95-98) L 06/23/18 05:13 - Impressions Impressions Guidance Ultrasound 07/08/18 00:00 IMPRESSION: Successful ultrasound and fluoroscopy guided tunneled catheter placement . D/ / Michael Mohamud / Michael Mohamud Interpreting Provider: Michael Mohamud Insertion Tunneled Catheter 07/08/18 08:07 IMPRESSION: Successful ultrasound and fluoroscopy guided tunneled catheter placement . 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
[2018-07-11] MEDS: Ipratropium/Albuterol Neb 3 ML IH SCH ×7 (00:04→23:32)
[2018-07-11] MEDS: Artificial Tears SOLN 15 ML BOTTLE BOTH EYES SCH ×7 (02:43→23:41)
[2018-07-11 03:39] LABS: Hematocrit 26.8 % (37.5-50.1); Hemoglobin 8.2 g/dL (12.9-16.9); Mean Corpuscular HGB Conc 30.6 g/dL (31.6-35.5); Mean Corpuscular Hemoglobin 28.2 pg (28.0-33.3); Mean Corpuscular Volume 92.1 fL (83.0-100.0); Platelet Count 173 K/mcL (140-400); Red Blood Count 2.91 M/mcL (4.19-5.50); Red Cell Distribution Width 14.6 % (11.5-14.5)
[2018-07-11 03:58] LABS: Calcium 8.8 mg/dL (8.6-10.3); Potassium 4.7 mEq/L (3.5-5.1)
[2018-07-11] MEDS: Budesonide Neb 0.5 MG/2 ML IH SCH ×2 (07:45→20:25)
[2018-07-11] MEDS: Insulin LISPRO 300 UNITS/3 ML VIAL SQ SCH ×7 (08:17→21:13)
[2018-07-11] MEDS: *HR* HYDROcodone/Acet 5/325 mg TABLET PO PRN ×2 (08:25→14:07)
[2018-07-11] MEDS: Chlorhexidine Rinse 15 ML MOUTHWASH MM SCH ×2 (08:25→21:30)
[2018-07-11] MEDS: predniSONE 10 MG TABLET PO SCH (08:26)
[2018-07-11] MEDS: Insulin DETEMIR 100 UNIT/ML X5UNITS SQ SCH (08:27)
[2018-07-11] MEDS: clonazePAM 1 MG TABLET PO SCH ×2 (08:27→21:30)
[2018-07-11] MEDS ORDERED: Furosemide 40 MG/4 ML VIAL IVP ONE (12:50)
--- NOTE | 2018-07-11 15:13 | Nephrology Progress Note ---
Date of Encounter: 07/11/18 Time of Encounter: 15:13 - Assessment and Plan (1) LUNA (acute kidney injury) Current Visit: Yes Status: Acute Patient with acute kidney injury with a renal function that is relatively stable, however, he has had significant difficulty with management of his potassium. He is also had difficulty with diuretics. As the patient has been in the hospital for prolonged period of time without resolution of his nephrologic issues dialysis was started 07/05/18. We will evaluate for the need for dialysis versus ultrafiltration daily. Will hold dialysis today and give lasix as his potassium is controlled and his UOP is improving. May be able to manage potassium and volume with loop diuretics as his renal function may be improving. Avoid nephrotoxic agents and adjust medications for renal function. (2) Adrenal insufficiency Current Visit: Yes Status: Acute (3) Hyperkalemia Current Visit: Yes Status: Acute Improved with repeat dialysis and now seems to be controlled with loop diuretic and improved kidney function. (4) Peripheral edema Current Visit: Yes Status: Acute responding to UF and now diuretics. 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 He has no new complaints. He reports he feels little bit better. He denies chest pain. Shortness of breath is better. Objective - Vital Signs Vital signs: Vital Signs Temp Pulse Resp BP Pulse Ox 07/11/18 11:06 98.4 F 79 18 150/80 100 07/11/18 07:47 18 99 07/11/18 06:26 98.4 F 89 16 151/88 100 07/11/18 04:09 14 98 07/11/18 03:39 98.5 F 83 16 155/77 98 07/11/18 01:01 99.2 F 84 16 158/70 99 07/11/18 00:06 16 92 07/10/18 20:25 18 93 07/10/18 19:41 98.3 F 91 16 164/118 94 07/10/18 17:25 98.2 F 83 18 89/62 95 07/10/18 15:47 18 96 Intake and Output 07/10/18 07/11/18 07/11/18 23:59 07:59 15:59 Intake Total 270 / 270 720 / 720 Output Total 600 / 600 500 / 500 950 / 950 Balance -600 / -600 -230 / -230 -230 / -230 Intake: Oral 270 / 270 720 / 720 Output: Urine 600 / 600 500 / 500 950 / 950 Other: Meal Lunch Percent of Meal Consumed 100% Stool Size Moderate Moderate Stool Consistency loose loose soft liquid Stool Characteristics Normal for Patient Stool Color Brown Green # Bowel Movements 1 1 Weight 102 kg Blood Glucose* 177 105 152 Patient Weight 07/11/18 23:59 Weight 102 kg - General Appearance General appearance: Present: well-developed, well-nourished EENT: Present: ATNC Neck: Present: supple Cardiology: Present: regular rate Dialysis Vascular Access: Venous Catheter Gastrointestinal: Present: no tenderness Neurologic: Present: alert and oriented x3 Psychiatric: Present: mood/affect appropriate - Lab 07/11/18 03:23 07/11/18 03:23 Most recent lab results ABG pH 7.41 pH Units (7.32-7.45) 06/23/18 05:13 ABG pCO2 58 mmHg (35-45) H 06/23/18 05:13 ABG pO2 74 mmHg (85-104) L 06/23/18 05:13 ABG HCO3 36 mEq/L (21-27) H 06/23/18 05:13 ABG O2 Saturation 94 % (95-98) L 06/23/18 05:13 Calcium 8.8 mg/dL (8.6-10.3) 07/11/18 03:23 Phosphorus 6.0 mg/dL (2.7-4.5) H 07/05/18 03:50 Magnesium 1.5 mg/dL (1.6-2.6) L 07/05/18 03:50 Urine Creatinine 58 mg/dL 06/25/18 07:42 Urine Sodium 62.7 mEq/L 06/25/18 07:42 Consult Discharge Plan - Plan Referrals: Zachery Regalado MD [Primary Care Provider] -
--- NOTE | 2018-07-11 23:44 | Internal Med Progress Note ---
Hospitalist Progress Note - Encounter Date of Encounter: 07/11/18 Time of Encounter: 19:00 - Subjective Interval History: SUBJECTIVE: He is using less supplemental oxygen today; 8.5 L/min; 4 L/min is his baseline. He has mild cough but not wheezing. Denies abdominal pain, nausea and vomiting. He basically does not make any urine. He has been restarted on hemodialysis on 07/05. OBJECTIVE: Skin: Free of rash and discoloration. ENMT: Oral/pharyngeal mucosa is normal in appearance. Eyes: Sclera is white. There is no discharge from eyes. Respiratory: Normal breath sounds; no crackles or wheezes. CV: Heart is regular; no gallop or murmur. GI: Abdomen is soft and not tender. There is no palpable mass or visceromegaly. Neuro: There is no focal deficits. ADDITIONAL DATA: Hemoglobin is 8.2 with WBC at 13.2 thousand and platelet count of 173,000. He has normal electrolytes. His creatinine is 2.30; 1.89 yesterday. Chest x-ray from today shows bibasilar opacification/the right pleural effusion with some interval improvement. ASSESSMENT AND PLAN: COPD exacerbation/acute on chronic respiratory failure with hypoxia and hypercapnia. To continue prednisone and nebulizer treatments with DuoNeb. Acute kidney injury. See notes from nephrology. Type 2 diabetes mellitus. He was on metformin at home. Currently, he takes Levemir and when necessary Humalog. He has underlying adrenal insufficiency. Continue Florinef. Hyperkalemia and hypernatremia. Managed by dialysis. - Exam Vitals: Temp Pulse Resp BP Pulse Ox 98.2 F 93 18 129/86 97 07/11/18 19:50 07/11/18 19:50 07/11/18 20:25 07/11/18 19:50 07/11/18 20:25 Exam: xx - Assessment and Plan (1) COPD exacerbation Current Visit: Yes Status: Acute (2) Acute on chronic respiratory failure with hypoxia and hypercapnia Current Visit: Yes Status: Acute (3) LUNA (acute kidney injury) Current Visit: Yes Status: Acute (4) Diabetes mellitus Current Visit: Yes Status: Chronic (5) Adrenal insufficiency Current Visit: Yes Status: Acute (6) Hyperkalemia Current Visit: Yes Status: Acute (7) Hypernatremia Current Visit: Yes Status: Acute (8) Septic shock Current Visit: Yes Status: Resolved - Time Spent with Patient Total time spent is greater than 50% in coordination of care (as documented) at patient's floor/unit and/or counseling patient: 25 - 35 minutes Plan of Care Discussed with: patient Internal Medicine: Result - Labs CBC & Chem 7: 07/11/18 03:23 07/11/18 03:23 Labs: Short CBC 07/11/18 Range/Units 03:23 WBC 13.2 H (4.3-11.1) K/mcL Hgb 8.2 L (12.9-16.9) g/dL Hct 26.8 L (37.5-50.1) % Plt Count 173 (140-400) K/mcL BMP 07/11/18 03:23 Sodium 139 Potassium 4.7 Chloride 103 Carbon Dioxide 32 H BUN 46 H Creatinine 2.30 H Glucose 149 H Calcium 8.8 - ABG Interpretation ABG results: ABG ABG pH 7.41 pH Units (7.32-7.45) 06/23/18 05:13 ABG pCO2 58 mmHg (35-45) H 06/23/18 05:13 ABG pO2 74 mmHg (85-104) L 06/23/18 05:13 ABG O2 Saturation 94 % (95-98) L 06/23/18 05:13 - Impressions Impressions Chest X-Ray 07/11/18 07:00 IMPRESSION: Bibasilar opacification right pleural effusion with some interval improvement. 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
[2018-07-12] MEDS: Ipratropium/Albuterol Neb 3 ML IH SCH ×6 (04:17→23:48)
[2018-07-12] MEDS: Artificial Tears SOLN 15 ML BOTTLE BOTH EYES SCH ×5 (06:23→19:18)
[2018-07-12 07:21] LABS: Hematocrit 26.9 % (37.5-50.1); Hemoglobin 8.2 g/dL (12.9-16.9); Mean Corpuscular HGB Conc 30.5 g/dL (31.6-35.5); Mean Corpuscular Hemoglobin 28.1 pg (28.0-33.3); Mean Corpuscular Volume 92.1 fL (83.0-100.0); Mean Platelet Volume 10.3 fL (9.4-12.4); Platelet Count 154 K/mcL (140-400); Red Blood Count 2.92 M/mcL (4.19-5.50); Red Cell Distribution Width 14.8 % (11.5-14.5)
[2018-07-12 07:27] LABS: Calcium 9.2 mg/dL (8.6-10.3); Potassium 4.5 mEq/L (3.5-5.1)
[2018-07-12] MEDS ORDERED: 0.9 % Sodium Chloride 250 ML IVC PRN (07:37)
[2018-07-12] MEDS: Budesonide Neb 0.5 MG/2 ML IH SCH ×2 (08:23→19:54)
[2018-07-12] MEDS: Insulin DETEMIR 100 UNIT/ML X5UNITS SQ SCH (08:38)
[2018-07-12] MEDS: Chlorhexidine Rinse 15 ML MOUTHWASH MM SCH ×2 (08:38→21:20)
[2018-07-12] MEDS: clonazePAM 1 MG TABLET PO SCH ×2 (08:38→21:20)
[2018-07-12] MEDS: predniSONE 10 MG TABLET PO SCH (08:38)
[2018-07-12] MEDS: Insulin LISPRO 300 UNITS/3 ML VIAL SQ SCH ×7 (08:39→21:20)
--- NOTE | 2018-07-12 13:11 | Nephrology Progress Note ---
Date of Encounter: 07/12/18 Time of Encounter: 11:20 - Assessment and Plan (1) LUNA (acute kidney injury) Current Visit: Yes Status: Acute HD ordered for today. Thank you. I reviewed the sign-out from my colleague Dr. Lam including labs, vitals, med lists and progress notes. I see that he has Permacath already, and so he should have an outpt HD unit arranged for Dialysis dependent LUNA. Tentatively next HD planned for Sunday. I will be available this weekend if needed. Thank you. Hyperkalemia has trended better. Avoid nephrotoxic agents and adjust medications for renal function. (2) Adrenal insufficiency Current Visit: Yes Status: Acute (3) Acute on chronic respiratory failure with hypoxia and hypercapnia Current Visit: Yes Status: Acute (4) Hyperkalemia Current Visit: Yes Status: Acute (5) Peripheral edema Current Visit: Yes Status: Acute (6) Hypernatremia Current Visit: Yes Status: Acute Subjective Principal diagnosis: Pneumonia Interval history: Nephrology was seen/examined earlier today in his 2N room. He did not affirm CP or N/V or D or F/C. Objective - Vital Signs Vital signs: Vital Signs Temp Pulse Resp BP Pulse Ox 07/12/18 11:35 98.1 F 92 17 140/79 90 07/12/18 08:24 18 94 07/12/18 07:52 97.9 F 92 18 150/90 95 07/12/18 04:55 98.4 F 74 17 164/83 100 07/12/18 04:17 18 99 07/12/18 00:08 98.4 F 89 18 168/84 94 07/11/18 23:32 16 95 07/11/18 20:25 18 97 07/11/18 19:50 98.2 F 93 20 129/86 98 07/11/18 16:01 98.6 F 99 22 144/81 93 07/11/18 15:51 18 93 Intake and Output 07/11/18 07/12/18 07/12/18 23:59 07:59 15:59 Intake Total 480 / 480 Output Total 1050 / 1050 775 / 775 Balance -1050 / -1050 -775 / -775 480 / 480 Intake: Oral 480 / 480 Output: Urine 1050 / 1050 775 / 775 Other: Meal Breakfast Percent of Meal Consumed 100% Stool Size Moderate Moderate Moderate Stool Consistency loose soft soft liquid Stool Characteristics Normal for Patient Normal for Patient Stool Color Green Brown Brown Green # Bowel Movements 1 # Bowel Movement Diapers 1 Weight 103.1 kg Blood Glucose* 90 102 90 Patient Weight 07/12/18 23:59 Weight 103.1 kg - General Appearance General appearance: Present: well-developed, well-nourished, appears started age EENT: Present: ATNC, PERRL, mucous membranes moist Additional Comments: chronic trach Neck: Present: supple Respiratory: Present: clear Cardiology: Present: edema (trace nonpitting pretibial with wrinkling bilaterally (much improved).), normal S1, normal S2 Dialysis Vascular Access: Venous Catheter Gastrointestinal: Present: normoactive bowel sounds, no guarding, obese Integumentary: Present: warm and dry Neurologic: Present: no focal deficit, no asterixis Musculoskeletal: Present: no cyanosis, no clubbing Psychiatric: Present: mood/affect appropriate, cooperative - Lab 07/12/18 06:40 07/12/18 06:40 Most recent lab results ABG pH 7.41 pH Units (7.32-7.45) 06/23/18 05:13 ABG pCO2 58 mmHg (35-45) H 06/23/18 05:13 ABG pO2 74 mmHg (85-104) L 06/23/18 05:13 ABG HCO3 36 mEq/L (21-27) H 06/23/18 05:13 ABG O2 Saturation 94 % (95-98) L 06/23/18 05:13 Calcium 9.2 mg/dL (8.6-10.3) 07/12/18 06:40 Phosphorus 6.0 mg/dL (2.7-4.5) H 07/05/18 03:50 Magnesium 1.5 mg/dL (1.6-2.6) L 07/05/18 03:50 Urine Creatinine 58 mg/dL 06/25/18 07:42 Urine Sodium 62.7 mEq/L 06/25/18 07:42 Consult Discharge Plan - Plan Referrals: Zachery Regalado MD [Primary Care Provider] -
[2018-07-12] MEDS ORDERED: 0.9 % Sodium Chloride 1,000 ML ONE (13:51)
[2018-07-13] MEDS: Artificial Tears SOLN 15 ML BOTTLE BOTH EYES SCH ×5 (00:03→20:40)
[2018-07-13] MEDS: Ipratropium/Albuterol Neb 3 ML IH SCH ×6 (04:02→23:15)
[2018-07-13 08:15] LABS: Hematocrit 28.7 % (37.5-50.1); Hemoglobin 8.7 g/dL (12.9-16.9); Mean Corpuscular HGB Conc 30.3 g/dL (31.6-35.5); Mean Corpuscular Hemoglobin 28.3 pg (28.0-33.3); Mean Corpuscular Volume 93.5 fL (83.0-100.0); Mean Platelet Volume 10.3 fL (9.4-12.4); Platelet Count 163 K/mcL (140-400); Red Blood Count 3.07 M/mcL (4.19-5.50); Red Cell Distribution Width 15.2 % (11.5-14.5)
[2018-07-13] MEDS: Chlorhexidine Rinse 15 ML MOUTHWASH MM SCH ×2 (08:16→20:40)
[2018-07-13 08:18] LABS: Calcium 9.2 mg/dL (8.6-10.3); Potassium 3.9 mEq/L (3.5-5.1)
[2018-07-13] MEDS: Insulin LISPRO 300 UNITS/3 ML VIAL SQ SCH ×7 (08:22→20:38)
[2018-07-13] MEDS: predniSONE 10 MG TABLET PO SCH (08:22)
[2018-07-13] MEDS: clonazePAM 1 MG TABLET PO SCH ×2 (08:22→20:37)
[2018-07-13] MEDS: Insulin DETEMIR 100 UNIT/ML X5UNITS SQ SCH (08:27)
[2018-07-13] MEDS ORDERED: Budesonide Neb 0.5 MG/2 ML IH ONE (08:47)
[2018-07-13] MEDS: Budesonide Neb 0.5 MG/2 ML IH SCH ×2 (08:48→20:14)
--- NOTE | 2018-07-13 18:23 | Internal Med Progress Note ---
Hospitalist Progress Note - Encounter Date of Encounter: 07/13/18 Time of Encounter: 18:00 - Subjective Interval History: SUBJECTIVE: Using 9 L/min nasal cannula oxygen today; 4 L/min is his baseline. He has mild cough but not wheezing. Denies abdominal pain, nausea and vomiting. He basically does not make any urine. He has been restarted on hemodialysis on 07/05. OBJECTIVE: Skin: Free of rash and discoloration. ENMT: Oral/pharyngeal mucosa is normal in appearance. Eyes: Sclera is white. There is no discharge from eyes. Respiratory: Normal breath sounds; no crackles or wheezes. CV: Heart is regular; no gallop or murmur. GI: Abdomen is soft and not tender. There is no palpable mass or visceromegaly. Neuro: There is no focal deficits. ADDITIONAL DATA: CBC shows hemoglobin of 8.7 (8.2 yesterday) with WBC of 12.8 thousand and platelet count of He has normal sodium/potassium/chloride. Bicarb is 33. Chest x-ray from 07/11 shows bibasilar opacification/the right pleural effusion with some interval improvement. ASSESSMENT AND PLAN: COPD exacerbation/acute on chronic respiratory failure with hypoxia and hypercapnia. To continue prednisone and nebulizer treatments with Symbicort/DuoNeb. Acute kidney injury. See notes from nephrology. The patient should have an output hemodialysis unit arranged for dialysis dependent DKA. Type 2 diabetes mellitus. He was on metformin at home. Currently, he takes Levemir and when necessary Humalog. He has underlying adrenal insufficiency. Continue Florinef. Hyperkalemia and hypernatremia. Managed by dialysis. - Exam Vitals: Temp Pulse Resp BP Pulse Ox 98.2 F 103 20 160/91 93 07/13/18 16:02 07/13/18 16:02 07/13/18 16:02 07/13/18 16:02 07/13/18 16:02 Exam: xx - Assessment and Plan (1) COPD exacerbation Current Visit: Yes Status: Acute (2) Acute on chronic respiratory failure with hypoxia and hypercapnia Current Visit: Yes Status: Acute (3) LUNA (acute kidney injury) Current Visit: Yes Status: Acute (4) Diabetes mellitus Current Visit: Yes Status: Chronic (5) Adrenal insufficiency Current Visit: Yes Status: Acute (6) Hyperkalemia Current Visit: Yes Status: Acute (7) Hypernatremia Current Visit: Yes Status: Acute (8) Septic shock Current Visit: Yes Status: Resolved - Time Spent with Patient Total time spent is greater than 50% in coordination of care (as documented) at patient's floor/unit and/or counseling patient: 25 - 35 minutes Plan of Care Discussed with: patient Internal Medicine: Result - Labs CBC & Chem 7: 07/13/18 05:36 07/13/18 05:36 Labs: Short CBC 07/13/18 Range/Units 05:36 WBC 12.8 H (4.3-11.1) K/mcL Hgb 8.7 L (12.9-16.9) g/dL Hct 28.7 L (37.5-50.1) % Plt Count 163 (140-400) K/mcL BMP 07/13/18 05:36 Sodium 140 Potassium 3.9 Chloride 99 Carbon Dioxide 33 H BUN 44 H Creatinine 2.14 H Glucose 102 Calcium 9.2 - ABG Interpretation ABG results: ABG ABG pH 7.41 pH Units (7.32-7.45) 06/23/18 05:13 ABG pCO2 58 mmHg (35-45) H 06/23/18 05:13 ABG pO2 74 mmHg (85-104) L 06/23/18 05:13 ABG O2 Saturation 94 % (95-98) L 06/23/18 05:13 Consult Discharge Plan - Plan Referrals: Zachery Regalado MD [Primary Care Provider] - (4) Diabetes mellitus Qualifiers: Diabetes mellitus type: type 2 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
[2018-07-13] MEDS: *HR* HYDROcodone/Acet 5/325 mg TABLET PO PRN (20:37)
[2018-07-14] MEDS: Artificial Tears SOLN 15 ML BOTTLE BOTH EYES SCH ×6 (00:39→21:17)
[2018-07-14] MEDS: Ipratropium/Albuterol Neb 3 ML IH SCH ×6 (03:58→23:52)
[2018-07-14] MEDS: *HR* HYDROcodone/Acet 5/325 mg TABLET PO PRN ×2 (04:04→17:03)
[2018-07-14 05:26] LABS: Hematocrit 26.2 % (37.5-50.1); Mean Corpuscular HGB Conc 30.5 g/dL (31.6-35.5); Mean Corpuscular Hemoglobin 28.1 pg (28.0-33.3); Mean Corpuscular Volume 91.9 fL (83.0-100.0); Mean Platelet Volume 9.9 fL (9.4-12.4); Platelet Count 146 K/mcL (140-400); Red Blood Count 2.85 M/mcL (4.19-5.50); Red Cell Distribution Width 15.1 % (11.5-14.5)
[2018-07-14 05:47] LABS: Calcium 8.9 mg/dL (8.6-10.3); Potassium 4.2 mEq/L (3.5-5.1)
[2018-07-14] MEDS: Budesonide Neb 0.5 MG/2 ML IH SCH ×2 (07:36→19:43)
[2018-07-14] MEDS: Chlorhexidine Rinse 15 ML MOUTHWASH MM SCH ×2 (07:41→21:17)
[2018-07-14] MEDS: Insulin LISPRO 300 UNITS/3 ML VIAL SQ SCH ×7 (07:41→21:17)
[2018-07-14] MEDS: predniSONE 10 MG TABLET PO SCH (07:41)
[2018-07-14] MEDS: clonazePAM 1 MG TABLET PO SCH ×2 (07:41→21:17)
[2018-07-14] MEDS: Insulin DETEMIR 100 UNIT/ML X5UNITS SQ SCH (07:42)
--- NOTE | 2018-07-14 16:17 | Internal Med Progress Note ---
Hospitalist Progress Note - Encounter Date of Encounter: 07/14/18 Time of Encounter: 16:15 - Subjective Interval History: SUBJECTIVE: Using 8 liter per minute supplemental oxygen (applied to trach collar area); 4 L/min is his baseline. He has mild cough but not wheezing. Denies abdominal pain, nausea and vomiting. He has been on hemodialysis since 07/05. OBJECTIVE: Skin: Free of rash and discoloration. ENMT: Oral/pharyngeal mucosa is normal in appearance. Eyes: Sclera is white. There is no discharge from eyes. Respiratory: Normal breath sounds; no crackles or wheezes. CV: Heart is regular; no gallop or murmur. GI: Abdomen is soft and not tender. There is no palpable mass or visceromegaly. Neuro: There is no focal deficits. ADDITIONAL DATA: Hemoglobin is 8.0; 8.7 yesterday. With WBC of 12.5 thousand and platelet count of 146,000. Electrolytes are normal. Chest x-ray from 07/11 shows bibasilar opacification/the right pleural effusion with some interval improvement. I am going to repeat his chest x-ray tomorrow. ASSESSMENT AND PLAN: COPD exacerbation/acute on chronic respiratory failure with hypoxia and hypercapnia. To continue prednisone and nebulizer treatments with DuoNeb. Acute kidney injury. See notes from nephrology. The patient should have an output hemodialysis unit arranged for dialysis dependent LUNA. Type 2 diabetes mellitus. He was on metformin at home. Currently, he takes Levemir and when necessary Humalog. He has underlying adrenal insufficiency. Continue Florinef. Hyperkalemia and hypernatremia. Managed by dialysis. Disposition: Ready for discharge; needs dialysis chair and high flow oxygen. - Exam Vitals: Temp Pulse Resp BP Pulse Ox 98.0 F 95 20 122/90 89 07/14/18 11:03 07/14/18 11:03 07/14/18 11:54 07/14/18 11:03 07/14/18 11:54 Exam: xx - Assessment and Plan (1) COPD exacerbation Current Visit: Yes Status: Acute (2) Acute on chronic respiratory failure with hypoxia and hypercapnia Current Visit: Yes Status: Acute (3) LUNA (acute kidney injury) Current Visit: Yes Status: Acute (4) Diabetes mellitus Current Visit: Yes Status: Chronic (5) Adrenal insufficiency Current Visit: Yes Status: Acute - Time Spent with Patient Total time spent is greater than 50% in coordination of care (as documented) at patient's floor/unit and/or counseling patient: 25 - 35 minutes Plan of Care Discussed with: patient Internal Medicine: Result - Labs CBC & Chem 7: 07/14/18 05:14 07/14/18 05:13 Labs: Short CBC 07/14/18 Range/Units 05:14 WBC 12.5 H (4.3-11.1) K/mcL Hgb 8.0 L (12.9-16.9) g/dL Hct 26.2 L (37.5-50.1) % Plt Count 146 (140-400) K/mcL BMP 07/14/18 05:13 Sodium 138 Potassium 4.2 Chloride 104 Carbon Dioxide 29 BUN 62 H Creatinine 2.33 H Glucose 106 H Calcium 8.9 - ABG Interpretation ABG results: ABG ABG pH 7.41 pH Units (7.32-7.45) 06/23/18 05:13 ABG pCO2 58 mmHg (35-45) H 06/23/18 05:13 ABG pO2 74 mmHg (85-104) L 06/23/18 05:13 ABG O2 Saturation 94 % (95-98) L 06/23/18 05:13 Consult Discharge Plan - Plan Referrals: Zachery Regalado MD [Primary Care Provider] - (4) Diabetes mellitus Qualifiers: Diabetes mellitus type: type 2 Diabetes mellitus long term care administrator insulin use: without skilled nursing use
[2018-07-15] MEDS: Artificial Tears SOLN 15 ML BOTTLE BOTH EYES SCH ×6 (00:05→22:32)
[2018-07-15] MEDS: Ipratropium/Albuterol Neb 3 ML IH SCH ×7 (03:47→23:49)
[2018-07-15] MEDS: *HR* HYDROcodone/Acet 5/325 mg TABLET PO PRN ×3 (04:08→22:55)
[2018-07-15 05:28] LABS: Hematocrit 27.6 % (37.5-50.1); Hemoglobin 8.2 g/dL (12.9-16.9); Mean Corpuscular HGB Conc 29.7 g/dL (31.6-35.5); Mean Corpuscular Hemoglobin 27.6 pg (28.0-33.3); Mean Corpuscular Volume 92.9 fL (83.0-100.0); Mean Platelet Volume 10.3 fL (9.4-12.4); Platelet Count 173 K/mcL (140-400); Red Blood Count 2.97 M/mcL (4.19-5.50); Red Cell Distribution Width 15.1 % (11.5-14.5)
[2018-07-15 05:41] LABS: Calcium 9.2 mg/dL (8.6-10.3); Potassium 4.7 mEq/L (3.5-5.1)
[2018-07-15] MEDS: Budesonide Neb 0.5 MG/2 ML IH SCH ×2 (07:19→21:51)
[2018-07-15] MEDS ORDERED: 0.9 % Sodium Chloride 250 ML IVC PRN (08:04)
[2018-07-15] MEDS: predniSONE 10 MG TABLET PO SCH (09:21)
[2018-07-15] MEDS: clonazePAM 1 MG TABLET PO SCH ×2 (09:21→22:55)
[2018-07-15] MEDS: Insulin LISPRO 300 UNITS/3 ML VIAL SQ SCH ×7 (09:22→22:32)
[2018-07-15] MEDS: Insulin DETEMIR 100 UNIT/ML X5UNITS SQ SCH (09:25)
[2018-07-15] MEDS: Chlorhexidine Rinse 15 ML MOUTHWASH MM SCH ×2 (09:28→22:32)
--- NOTE | 2018-07-15 10:51 | Gastroenterology Progress Note ---
Date of Encounter: 07/15/18 Time of Encounter: 09:30 - Assessment and plan (1) Anemia Current Visit: Yes Status: Acute Assessment and plan: On admission Hgb 14.5 and this AM Hgb 8.2. Fecal occult blood test was positive. Continue to monitor CBC and transfuse PRBC as needed. No obvious source of bleeding. Spoke with pt about proceeding with EGD and colonoscopy, before discharge. Pt wants to discuss with Dr Riojas who will see him later today. Continue PPI. Change to clear liquid diet. Per Dr Riojas pt may also benefit from erythropoietin. Qualifiers: Anemia type: unspecified type Qualified Code(s): D64.9 - Anemia, unspecified (2) Septic shock Current Visit: Yes Status: Resolved Assessment and plan: resolved (3) LUNA (acute kidney injury) Current Visit: Yes Status: Acute Assessment and plan: Management per Nephrology, pt on HD. - Time Spent With Patient Total time spent is greater than 50% in coordination of care (as documented) at patient's floor/unit and/or counseling patient: - Subjective Interval history: 63 year old male who is status post tracheostomy and peg tube placement. He is currently on 8L per [employer] collar. He has speaking valve and communicates well. He was seen previously for anemia but unable to scope as he was too unstable at that time. Stool was positive for occult blood. He denies any melena or hematochezia. He has been started on hemodialysis. - Constitutional Vitals: Temp Pulse Resp BP Pulse Ox 98.0 F 82 18 102/68 95 07/15/18 07:44 07/15/18 07:44 07/15/18 07:44 07/15/18 07:44 07/15/18 07:44 General appearance: Present: cooperative, A&O X 3, no acute distress, answers questions appropriately Exam: CONSTITUTIONAL:alert, no acute distress.HEAD:normocephalic.EYES:no jaundice.NECK:no obvious swelling, trach without bleeding or drainage.HEART :Hd cath noted, regular rate and rhythm, no murmurs.LUNGS:bilateral good air entry.ABDOMEN:non distended, soft, non tender, no masses palpable, no organomegaly.RECTAL EXAM:Deferred.EXTREMITIES:no clubbing, cyanosis or edema, skin appears wrinkled on his arms.SKIN:pallor noted, no stigmata of chronic liver disease.NEUROLOGIC:no obvious focal defect. Results - Labs CBC & Chem 7: 07/15/18 04:43 07/15/18 04:43 Labs: Last Result 07/15/18 04:43 Calcium 9.2 Entire Visit 07/15/18 04:43 Hgb 8.2 L Hct 27.6 L - ABG ABG results: ABG ABG pH 7.41 pH Units (7.32-7.45) 06/23/18 05:13 ABG pCO2 58 mmHg (35-45) H 06/23/18 05:13 ABG pO2 74 mmHg (85-104) L 06/23/18 05:13 ABG O2 Saturation 94 % (95-98) L 06/23/18 05:13 Consult Discharge Plan - Plan Referrals: Zachery Regalado MD [Primary Care Provider] -
--- NOTE | 2018-07-15 12:03 | Nephrology Progress Note ---
Date of Encounter: 07/15/18 Time of Encounter: 09:10 - Assessment and Plan (1) LUNA (acute kidney injury) Current Visit: Yes Status: Acute Worsening SCr so I've ordered HD via the Permacath that was placed last week when Dr. Lam was on-service. I expect to see renal recovery at some point, but would recommend outpt HD another week or so. The pt requested to do HD in [place]. (2) Adrenal insufficiency Current Visit: Yes Status: Acute (3) Acute on chronic respiratory failure with hypoxia and hypercapnia Current Visit: Yes Status: Acute (4) Hyperkalemia Current Visit: Yes Status: Acute (5) Peripheral edema Current Visit: Yes Status: Acute (6) Hypernatremia Current Visit: Yes Status: Acute Subjective Principal diagnosis: Pneumonia Interval history: Nephrology was seen/examined earlier today in his 2N room. He did not affirm CP or N/V or D or F/C. He voiced requesting to be discharged to home and to have outpt HD in [place] and he said he did not want to go [facility]. Objective - Vital Signs Vital signs: Vital Signs Temp Pulse Resp BP Pulse Ox 07/15/18 11:34 98.1 F 95 18 139/84 88 07/15/18 07:44 98.0 F 82 18 102/68 95 07/15/18 07:19 18 95 07/15/18 04:00 97.9 F 82 18 151/97 98 07/15/18 03:47 16 97 07/14/18 23:52 18 92 07/14/18 23:12 98.1 F 83 18 175/87 90 07/14/18 21:36 89 07/14/18 19:43 17 93 07/14/18 18:52 98.5 F 73 18 157/96 94 07/14/18 16:55 98.2 F 86 18 147/84 93 07/14/18 16:02 16 90 Intake and Output 07/14/18 07/15/18 07/15/18 23:59 07:59 15:59 Intake Total 670 / 1900 360 / 360 Output Total 400 / 700 900 / 900 Balance 270 / 1200 -540 / -540 Intake: Oral 670 / 1900 360 / 360 Output: Urine 400 / 700 900 / 900 Other: Meal Dinner Breakfast Percent of Meal Consumed 100% 100% Stool Size Moderate Stool Consistency soft Stool Color Brown Weight 102.8 kg Blood Glucose* 220 142 130 Patient Weight 07/15/18 23:59 Weight 102.8 kg - General Appearance Exam: General appearance: Present: well-developed, well-nourished, appears started age EENT: Present: ATNC, PERRL, mucous membranes moist Additional Comments: chronic trach Neck: Present: supple Respiratory: Present: clear Cardiology: Present: edema (trace nonpitting pretibial with wrinkling bilater ally [much improved]), normal S1, normal S2 Dialysis Vascular Access: Right tunneled HD Venous Catheter Gastrointestinal: Present: normoactive bowel sounds, no guarding, obese Integumentary: Present: warm and dry Neurologic: Present: no focal deficit, no asterixis Musculoskeletal: Present: no cyanosis, no clubbing Psychiatric: Present: mood/affect appropriate, cooperative - Lab 07/15/18 04:43 07/15/18 04:43 Most recent lab results 07/15/18 04:43 Calcium 9.2 Consult Discharge Plan - Plan Referrals: Zachery Regalado MD [Primary Care Provider] -
--- NOTE | 2018-07-15 23:07 | Internal Med Progress Note ---
Hospitalist Progress Note - Encounter Date of Encounter: 07/15/18 Time of Encounter: 19:00 - Subjective Interval History: SUBJECTIVE: Using 8 liter per minute supplemental oxygen (applied to trach collar area); 4 L/min is his baseline. He has mild cough but not wheezing. Denies abdominal pain, nausea and vomiting. He has been on hemodialysis since 07/05. OBJECTIVE: Skin: Free of rash and discoloration. ENMT: Oral/pharyngeal mucosa is normal in appearance. Eyes: Sclera is white. There is no discharge from eyes. Respiratory: Normal breath sounds; no crackles or wheezes. CV: Heart is regular; no gallop or murmur. GI: Abdomen is soft and not tender. There is no palpable mass or visceromegaly. Neuro: There is no focal deficits. ADDITIONAL DATA: Hemoglobin is 8.2; with WBC of 13.7 thousand and platelet count of 173,000. His hemoglobin at admission was 14.5. Hemoccult of stool is positive. Electrolytes are normal. Chest x-ray from 07/11 shows bibasilar opacification/the right pleural effusion with some interval improvement. I am going to repeat his chest x-ray tomorrow. ASSESSMENT AND PLAN: COPD exacerbation/acute on chronic respiratory failure with hypoxia and hypercapnia. To continue prednisone and nebulizer treatments with DuoNeb. Acute kidney injury. See notes from nephrology. The patient should have an output hemodialysis unit arranged for dialysis dependent LUNA soon. Possible GI bleeding. GI service is consulted. The patient would benefit from EGD and colonoscopy. He would also benefit from erythropoietin. Type 2 diabetes mellitus. He was on metformin at home. Currently, he takes Levemir and when necessary Humalog. He has underlying adrenal insufficiency. Continue Florinef. Hyperkalemia and hypernatremia. Managed by dialysis. Disposition: Ready for discharge; needs dialysis chair and high flow oxygen. Upper and lower endoscopy can be done before the discharge order later as an outpatient. - Exam Vitals: Temp Pulse Resp BP Pulse Ox 98.1 F 84 20 152/97 93 07/15/18 16:05 07/15/18 16:05 07/15/18 21:51 07/15/18 16:05 07/15/18 21:51 Exam: xx - Assessment and Plan (1) COPD exacerbation Current Visit: Yes Status: Acute (2) Acute on chronic respiratory failure with hypoxia and hypercapnia Current Visit: Yes Status: Acute (3) LUNA (acute kidney injury) Current Visit: Yes Status: Acute (4) Anemia Current Visit: Yes Status: Acute (5) Diabetes mellitus Current Visit: Yes Status: Chronic (6) Adrenal insufficiency Current Visit: Yes Status: Acute - Time Spent with Patient Total time spent is greater than 50% in coordination of care (as documented) at patient's floor/unit and/or counseling patient: 25 - 35 minutes Plan of Care Discussed with: patient Internal Medicine: Result - Labs CBC & Chem 7: 07/15/18 04:43 07/15/18 04:43 Labs: Short CBC 07/15/18 Range/Units 04:43 WBC 13.7 H (4.3-11.1) K/mcL Hgb 8.2 L (12.9-16.9) g/dL Hct 27.6 L (37.5-50.1) % Plt Count 173 (140-400) K/mcL BMP 07/15/18 04:43 Sodium 140 Potassium 4.7 Chloride 101 Carbon Dioxide 30 H BUN 73 H Creatinine 2.94 H Glucose 118 H Calcium 9.2 - ABG Interpretation ABG results: ABG ABG pH 7.41 pH Units (7.32-7.45) 06/23/18 05:13 ABG pCO2 58 mmHg (35-45) H 06/23/18 05:13 ABG pO2 74 mmHg (85-104) L 06/23/18 05:13 ABG O2 Saturation 94 % (95-98) L 06/23/18 05:13 Consult Discharge Plan - Plan Referrals: Zachery Regalado MD [Primary Care Provider] - (4) Anemia Qualifiers: Anemia type: unspecified type Qualified Code(s): D64.9 - Anemia, unspecified (5) Diabetes mellitus Qualifiers: Diabetes mellitus type: type 2 Diabetes mellitus prison insulin use: without terminal press operator use
[2018-07-16] MEDS: Artificial Tears SOLN 15 ML BOTTLE BOTH EYES SCH ×7 (00:32→23:34)
[2018-07-16] MEDS: Mag Hydrox/Al Hydrox/Simeth 30 ML UDC PO PRN ×2 (00:48→10:31)
[2018-07-16 01:45] LABS: Hematocrit 29.7 % (37.5-50.1); Hemoglobin 9.2 g/dL (12.9-16.9); Mean Corpuscular Hemoglobin 28.1 pg (28.0-33.3); Mean Corpuscular Volume 90.8 fL (83.0-100.0); Mean Platelet Volume 9.8 fL (9.4-12.4); Platelet Count 172 K/mcL (140-400); Red Blood Count 3.27 M/mcL (4.19-5.50); Red Cell Distribution Width 15.1 % (11.5-14.5)
[2018-07-16 02:02] LABS: BUN/Creatinine Ratio 19 (6-26); Blood Urea Nitrogen 27 mg/dL (8-23); Calcium 9.2 mg/dL (8.6-10.3); Carbon Dioxide 31 mEq/L (23-29); Chloride 100 mEq/L (98-107); Glucose 96 mg/dL (70-105); Osmolality,Calculated 287 (280-300); Potassium 4.4 mEq/L (3.5-5.1); Sodium 136 mEq/L (136-145); eGFR For Non-African Americans 50 (> 60)
[2018-07-16] MEDS: Ipratropium/Albuterol Neb 3 ML IH SCH ×6 (04:07→23:32)
[2018-07-16] MEDS: Budesonide Neb 0.5 MG/2 ML IH SCH ×2 (07:33→19:53)
--- NOTE | 2018-07-16 07:54 | Nephrology Progress Note ---
Date of Encounter: 07/16/18 Time of Encounter: 07:53 - Assessment and Plan (1) LUNA (acute kidney injury) Current Visit: Yes Status: Acute With his serum creatinine trending so well and excellent non-oliguric urine output, this all strongly suggests renal recovery. He will not need outpatient dialysis most likely, at this point, and I would recommend removal of the Permacath before discharge to avoid risks of infection. Cont to follow a renal protective strategy. Discussed with the hospital social worker. Thank you. (2) Adrenal insufficiency Current Visit: Yes Status: Acute (3) Acute on chronic respiratory failure with hypoxia and hypercapnia Current Visit: Yes Status: Acute (4) Hyperkalemia Current Visit: Yes Status: Acute (5) Peripheral edema Current Visit: Yes Status: Acute (6) Hypernatremia Current Visit: Yes Status: Acute Subjective Principal diagnosis: Pneumonia Interval history: Nephrology was seen/examined earlier today in his 2N room. He again did not affirm CP or N/V or D or F/C. He voiced that he's willing to do Rehab now. We talked about his renal function trending better. Objective - Vital Signs Vital signs: Vital Signs Temp Pulse Resp BP Pulse Ox 07/16/18 07:38 98.1 F 88 18 137/89 98 07/16/18 04:08 16 97 07/16/18 03:45 97.8 F 98 18 135/89 96 07/16/18 00:39 98.2 F 91 16 123/99 94 07/15/18 22:10 98.4 F 20 167/107 07/15/18 22:00 157/108 07/15/18 21:51 20 93 07/15/18 21:45 152/102 07/15/18 21:30 161/106 07/15/18 21:15 174/109 07/15/18 21:00 171/103 07/15/18 20:45 169/100 07/15/18 20:30 174/99 07/15/18 20:15 171/109 07/15/18 20:00 153/102 07/15/18 19:45 163/100 07/15/18 19:30 168/101 07/15/18 19:15 174/101 07/15/18 19:00 97.6 F 20 184/101 07/15/18 16:05 98.1 F 84 19 152/97 95 07/15/18 15:43 20 92 07/15/18 11:36 18 90 07/15/18 11:34 98.1 F 95 18 139/84 88 Intake and Output 07/15/18 07/15/18 07/16/18 15:59 23:59 07:59 Intake Total 720 / 1680 960 / 1680 0 / 0 Output Total 900 / 4850 3950 / 4850 275 / 275 Balance -180 / -3170 -2990 / -3170 -275 / -275 Intake: Oral 720 / 1080 360 / 1080 0 / 0 Intake, Rinseback and Flushes 600 / 600 Output: Urine 900 / 1250 350 / 1250 275 / 275 Total Dialysis (HD) Output 3600 / 3600 Other: Meal Lunch Dinner Percent of Meal Consumed 0% Stool Size Moderate Stool Consistency soft Stool Color Brown Blood Glucose* 130 109 132 Hemodialysis Net Fluid Removed 3000 (mL) - General Appearance Exam: General appearance: Present: well-developed, well-nourished, appears started age EENT: Present: ATNC, PERRL, mucous membranes moist Additional Comments: chronic trach Neck: Present: supple Respiratory: Present: clear Cardiology: Present: no edema, normal S1, normal S2 Dialysis Vascular Access: Right tunneled HD Venous Catheter Gastrointestinal: Present: normoactive bowel sounds, no guarding, obese Integumentary: Present: warm and dry Neurologic: Present: no focal deficit, no asterixis Musculoskeletal: Present: no cyanosis, no clubbing Psychiatric: Present: mood/affect appropriate, cooperative - Lab 07/16/18 01:32 07/16/18 01:32 Most recent lab results 07/16/18 01:32 Calcium 9.2 Consult Discharge Plan - Plan Referrals: Zachery Regalado MD [Primary Care Provider] -
[2018-07-16] MEDS: Insulin LISPRO 300 UNITS/3 ML VIAL SQ SCH ×7 (08:24→21:17)
[2018-07-16] MEDS: clonazePAM 1 MG TABLET PO SCH ×2 (10:32→21:23)
[2018-07-16] MEDS: Chlorhexidine Rinse 15 ML MOUTHWASH MM SCH ×2 (10:32→23:28)
[2018-07-16] MEDS: predniSONE 10 MG TABLET PO SCH (10:32)
[2018-07-16] MEDS: *HR* HYDROcodone/Acet 5/325 mg TABLET PO PRN ×2 (10:33→14:04)
[2018-07-16] MEDS: Insulin DETEMIR 100 UNIT/ML X5UNITS SQ SCH (11:04)
--- NOTE | 2018-07-16 13:26 | Event Note ---
Date of Encounter: 07/16/18 Time of Encounter: 13:20 Pt had normal EGD on 06/23 when peg tube was placed, will plan for colonoscopy tomorrow for anemia. Prep ordered.
[2018-07-16] MEDS ORDERED: SODIUM CHLORIDE/NAHCO3/KCL/PEG 4,000 ML SOLN.RECON PO ONE (17:00)
--- NOTE | 2018-07-16 19:11 | Anesthesia Evaluation PreOp ---
Date of Encounter: 07/16/18 Time of Encounter: 19:09 - Past History Planned Operation: Colonoscopy Cardiac History: HTN Pulmonary History: COPD (with exacerbation), Other (Acute on chronic resp failure, trach on trach collar) INFORMATICS COORDINATOR History: Denies Any Significant HX Other Medical History: Renal (LUNA on dialysis), Diabetes Type II, Other (adrenal insufficiency) Anesthesia History: No Prior Anesthetic Complications, Past Anesthesia (PEG, trach) Alcohol Use: none Drug use: none Medications and Allergies Acetaminophen 650 mg PO Q6HR PRN 06/21/18 [History] Arformoterol Tartrate [Brovana] 15 mcg IH QSHIFT 06/21/18 [History] Ascorbate Calcium [Vitamin C] 500 mg PO DAILY 06/21/18 [History] Budesonide [Pulmicort] 4 ml IH QSHIFT 06/21/18 [History] Carvedilol 3.125 mg PO BID 06/21/18 [History] Citalopram Hydrobromide [Celexa] 20 mg PO DAILY 06/21/18 [History] Enoxaparin [Lovenox] 40 mg SQ DAILY 06/21/18 [History] Ferrous Sulfate Oral Soln 6.8 ml PO DAILY 06/21/18 [History] Insulin LISPRO [Admelog Solostar] 2 - 10 unit SQ Q6H 06/21/18 [History] Ipratropium/Albuterol Sulfate [Iprat-Albut 0.5-3(2.5) mg/3 ml] 3 ml IH Q6HR 06/21/18 [History] Lisinopril [Zestril] 5 mg PO DAILY 06/21/18 [History] Metformin HCl 500 mg PO BID 06/21/18 [History] Potassium Chloride [K-Tab ER] 20 meq PO DAILY 06/21/18 [History] Ranitidine Oral Soln [Zantac] 10 ml PO BID 06/21/18 [History] Soft Lens Saline Solution 0.9% 1 appl TP QSHIFT 06/21/18 [History] Zinc Sulfate 220 mg PO DAILY 06/21/18 [History] amLODIPine [Norvasc] 5 mg PO DAILY 06/21/18 [History] clonazePAM [Clonazepam] 1 mg PO BID 06/21/18 [History] predniSONE [PredniSONE] See Taper PO AD 06/21/18 [History] Allergy/AdvReac Type Severity Reaction Status Date / Time No Known Allergies Allergy Verified 06/21/18 07:48 - Meds/Allergy Pre-op Review Medications Reviewed: Yes Allergies Reviewed: Yes Beta Blockers on Current Med List: Yes Anesthesia Results - Labs 07/16/18 01:32 07/16/18 01:32 - Imaging EKG: report reviewed (SINUS TACHYCARDIA WITH FREQUENT SUPRAVENTRICULAR PREMATURE COMPLEXES SEPTAL MYOCARDIAL INFARCTION, PROBABLY OLD ARTIFACT Electronically Signed On 06-23-2018 8:34:33 EDT by Lianna Serra) Additional studies: Impressions: Technically sub-optimal study. Grossly LVEF 70%. Mild RV systolic dysfunction. No significant valvular dysfunction. No pulmonary hypertension. Anesthesia Exam Vital Signs/O2 Sat, Most Current Temp Pulse Resp BP Pulse Ox 99.4 F 102 18 120/94 86 07/16/18 16:38 07/16/18 16:38 07/16/18 16:38 07/16/18 16:38 07/16/18 16:38 Weight: 102kg NPO (# of Hours): MN - HEENT Pupil (Motor): Pupils equal, EOMI Mallampati: Trach Oral Opening: Greater than 3 - INFORMATICS COORDINATOR LOC: Oriented INFORMATICS COORDINATOR Motor: Normal RUE, Normal LUE, Normal RLE, Normal LLE, Normal Face INFORMATICS COORDINATOR Sensory: Normal: RUE, LUE, RLE, LLE, Face - Cardiac Rhythm: Regular - Pulmonary Breath Sounds: bilateral Clear Respiratory Effort: Symmetrical Anesthesia Assess/Plan ASA Score: 4 Level of consciousness: Cooperative Anesthetic Plan: General, MAC Monitoring Plan: Standard Monitors Recovery Plan: PACU
--- NOTE | 2018-07-16 23:36 | Internal Med Progress Note ---
Hospitalist Progress Note - Encounter Date of Encounter: 07/16/18 Time of Encounter: 19:00 - Subjective Interval History: SUBJECTIVE: He feels stronger. Has better appetite. Not getting any hemodialysis, as his creatinine is improving. Using 8 liter per minute supplemental oxygen (applied to trach collar area); 4 L/min is his baseline. He has mild cough but not wheezing. Denies abdominal pain, nausea and vomiting. He has been on hemodialysis since . OBJECTIVE: Skin: Free of rash and discoloration. ENMT: Oral/pharyngeal mucosa is normal in appearance. Eyes: Sclera is white. There is no discharge from eyes. Respiratory: Normal breath sounds; no crackles or wheezes. CV: Heart is regular; no gallop or murmur. GI: Abdomen is soft and not tender. There is no palpable mass or visceromegaly. Neuro: There is no focal deficits. ADDITIONAL DATA: Hemoglobin is 9.2 with a WBC of 15.4 thousand and platelet count of 172,000. His hemoglobin at admission was 14.5. Hemoccult of stool is positive. He has normal electrolytes. Creatinine is 1.42; 2.94 yesterday. ASSESSMENT AND PLAN: COPD exacerbation/acute on chronic respiratory failure with hypoxia and hypercapnia. To continue prednisone and nebulizer treatments with DuoNeb. Acute kidney injury. Subsiding. See notes from nephrology. No need for inpatient/outpatient hemodialysis program. Possible GI bleeding. GI service is consulted. He had normal EGD on 06/23. He is to get a colonoscopy tomorrow. Type 2 diabetes mellitus. He was on metformin at home. Currently, he takes L evemir and when necessary Humalog. He has underlying adrenal insufficiency. Continue Florinef. Disposition: Due to his weakness, the patient decided to get physical therapy in [facility]. A referral has been made. - Exam Vitals: Temp Pulse Resp BP Pulse Ox 98.7 F 103 14 103/82 100 07/16/18 20:04 07/16/18 20:04 07/16/18 23:32 07/16/18 20:04 07/16/18 23:32 Exam: xx - Assessment and Plan (1) COPD exacerbation Current Visit: Yes Status: Acute (2) Acute on chronic respiratory failure with hypoxia and hypercapnia Current Visit: Yes Status: Acute (3) LUNA (acute kidney injury) Current Visit: Yes Status: Acute (4) Anemia Current Visit: Yes Status: Acute (5) Diabetes mellitus Current Visit: Yes Status: Chronic (6) Adrenal insufficiency Current Visit: Yes Status: Acute - Time Spent with Patient Total time spent is greater than 50% in coordination of care (as documented) at patient's floor/unit and/or counseling patient: 25 - 35 minutes Plan of Care Discussed with: patient Internal Medicine: Result - Labs CBC & Chem 7: 07/16/18 01:32 07/16/18 01:32 Labs: Short CBC 07/16/18 Range/Units 01:32 WBC 15.4 H (4.3-11.1) K/mcL Hgb 9.2 L (12.9-16.9) g/dL Hct 29.7 L (37.5-50.1) % Plt Count 172 (140-400) K/mcL BMP 07/16/18 01:32 Sodium 136 Potassium 4.4 Chloride 100 Carbon Dioxide 31 H BUN 27 H Creatinine 1.42 H Glucose 96 Calcium 9.2 - ABG Interpretation ABG results: ABG ABG pH 7.41 pH Units (7.32-7.45) 06/23/18 05:13 ABG pCO2 58 mmHg (35-45) H 06/23/18 05:13 ABG pO2 74 mmHg (85-104) L 06/23/18 05:13 ABG O2 Saturation 94 % (95-98) L 06/23/18 05:13 Consult Discharge Plan - Plan Referrals: Zachery Regalado MD [Primary Care Provider] - (4) Anemia Qualifiers: Anemia type: unspecified type Qualified Code(s): D64.9 - Anemia, unspecified (5) Diabetes mellitus Qualifiers: Diabetes mellitus type: type 2 Diabetes mellitus residential insulin use: shreyas paez residential use
[2018-07-17] MEDS: Ipratropium/Albuterol Neb 3 ML IH SCH ×5 (04:17→19:57)
[2018-07-17] MEDS: Artificial Tears SOLN 15 ML BOTTLE BOTH EYES SCH ×5 (05:02→20:19)
[2018-07-17 05:27] LABS: Hematocrit 27.1 % (37.5-50.1); Hemoglobin 8.3 g/dL (12.9-16.9); Mean Corpuscular HGB Conc 30.6 g/dL (31.6-35.5); Mean Corpuscular Hemoglobin 28.2 pg (28.0-33.3); Mean Corpuscular Volume 92.2 fL (83.0-100.0); Mean Platelet Volume 10.2 fL (9.4-12.4); Platelet Count 183 K/mcL (140-400); Red Blood Count 2.94 M/mcL (4.19-5.50); Red Cell Distribution Width 15.1 % (11.5-14.5)
[2018-07-17 05:47] LABS: Calcium 9.2 mg/dL (8.6-10.3); Potassium 4.2 mEq/L (3.5-5.1)
[2018-07-17] MEDS: Budesonide Neb 0.5 MG/2 ML IH SCH ×2 (07:49→19:57)
--- NOTE | 2018-07-17 08:25 | Nephrology Progress Note ---
Date of Encounter: 07/17/18 Time of Encounter: 09:35 - Assessment and Plan (1) LUNA (acute kidney injury) Status: Acute His serum creatinine remains elevated, but not severe enough for dialysis at this point. His overall trajectory of his creatinine fluctuations is such that dialysis does not appear to be warranted at this time. 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 The permacath may be removed whether it is during this admission or if he is discharged today to the rehabilitation unit, then the permacath should be arranged for removal as an outpatient. Cont to follow a renal protective strategy: Strict I's and O's, daily weights, avoidance of nephrotoxic agents, and renal dosing. The patient had should have at least a basic metabolic panel checked weekly while at rehabilitation, and close nephrology follow-up in approximately 2-3 weeks. Thank you. (2) Adrenal insufficiency Status: Acute (3) Acute on chronic respiratory failure with hypoxia and hypercapnia Status: Acute Per the primary team Patient with a trach. (4) Hyperkalemia Status: Acute Back to WNL. (5) Peripheral edema Status: Acute Improved after having had approx a week of intermittant HD. (6) Hypernatremia Status: Acute Resolved. Subjective Principal diagnosis: Pneumonia Interval history: Nephrology was seen/examined earlier today in his exam room. He reported feeling relatively well, and he agaiin did not affirm CP or N/V or D or F/C. He voiced he's making urine. Objective - Vital Signs Vital signs: Vital Signs Temp Pulse Resp BP Pulse Ox 07/17/18 07:53 80 07/17/18 07:49 20 98 07/17/18 07:34 98.2 F 86 20 149/87 98 07/17/18 04:18 14 99 07/17/18 04:10 98.4 F 82 18 141/91 98 07/17/18 00:37 168/100 07/17/18 00:33 97.5 F L 90 17 146/103 89 07/16/18 23:32 14 100 07/16/18 20:04 98.7 F 103 19 103/82 87 07/16/18 19:54 14 92 07/16/18 16:38 99.4 F 102 18 120/94 86 07/16/18 16:11 18 90 07/16/18 11:19 98.2 F 96 18 141/98 Intake and Output 07/16/18 07/17/18 07/17/18 23:59 07:59 15:59 Output Total 0 / 275 600 / 600 Balance 0 / 85 -600 / -600 Output: Urine 0 / 275 Stool 600 / 600 Other: Stool Size Large Small Stool Consistency liquid liquid Stool Color Brown Yellow # Bowel Movements 1 1 Weight 96.7 kg Blood Glucose* 117 91 Patient Weight 07/17/18 23:59 Weight 96.7 kg - General Appearance Exam: General appearance: Present: well-developed, well-nourished, appears started age EENT: Present: ATNC, PERRL, mucous membranes moist Additional Comments: chronic trach Neck: Present: supple Respiratory: Present: clear Cardiology: Present: no edema, normal S1, normal S2 Dialysis Vascular Access: Right tunneled HD Venous Catheter Gastrointestinal: Present: normoactive bowel sounds, no guarding, obese Integumentary: Present: warm and dry Neurologic: Present: no focal deficit, no asterixis Musculoskeletal: Present: no cyanosis, no clubbing Psychiatric: Present: mood/affect appropriate, cooperative - Lab 07/18/18 05:51 07/18/18 05:51 Most recent lab results 07/17/18 05:01 Calcium 9.2 Consult Discharge Plan - Plan Referrals: Zachery Regalado MD [Primary Care Provider] - (Patient will follow up with [facility] PCP) Prescriptions: clonazePAM [Clonazepam] 1 mg PO BID PRN 10 Days #20 tablet NS PRN Reason: Anxiety
[2018-07-17] MEDS: Insulin LISPRO 300 UNITS/3 ML VIAL SQ SCH ×7 (09:35→21:38)
[2018-07-17] MEDS: Insulin DETEMIR 100 UNIT/ML X5UNITS SQ SCH (09:36)
[2018-07-17] MEDS: clonazePAM 1 MG TABLET PO SCH ×2 (09:58→20:19)
[2018-07-17] MEDS: predniSONE 10 MG TABLET PO SCH (09:58)
[2018-07-17] MEDS: Chlorhexidine Rinse 15 ML MOUTHWASH MM SCH ×2 (09:59→20:24)
[2018-07-17] MEDS ORDERED: Propofol 500 MG/50 ML INFUS..BTL ONE ×2 (11:23→11:44)
[2018-07-17] MEDS ORDERED: Lidocaine -MPF 2% 2 ML VIAL ONE ×2 (11:28→12:49)
--- NOTE | 2018-07-17 12:37 | Discharge Summary ---
- NOTES TO OUTPATIENT PROVIDER Notes to Outpatient Provider: PCP 2- 5days, moe for out pt HD, pulm in 2 wks Orders not resulted at time of discharge: Pending orders 07/18/18 04:00 Basic Metabolic Panel AM 0400 CBC no Diff [Complete Blood Count w/o Diff] [HEME] AM 04007/19/18 04:00 Basic Metabolic Panel AM 040 CBC no Diff [Complete Blood Count w/o Diff] [HEME] AM 04007/20/18 04:00 Basic Metabolic Panel AM 040 CBC no Diff [Complete Blood Count w/o Diff] [HEME] AM 04007/21/18 04:00 Basic Metabolic Panel AM 040 CBC no Diff [Complete Blood Count w/o Diff] [HEME] AM 04007/22/18 04:00 Basic Metabolic Panel AM 040 CBC no Diff [Complete Blood Count w/o Diff] [HEME] AM 040 Date of Encounter: 07/17/18 Time of Encounter: 12:32 Hospital course: This is a 63 yom who presented with septic shock, acuteo n chornic renal flaiure. Pt was sent to ICu where pt was on presor and pt was also intubated and pt was seen by surgeyr for peg tube placement. Pt was given abx ,and ct showed loba consloidation consistent with aspriational pna. Pt had RF and renal sawt he pt. Pt was eventually requiring high oxgyen contect and pt then had a trach and pt finsihed 10 days of abx for spiraitonal pna. But then his renal fucntion continued to worsen and pt go a right sided tunnel catheter for HD, and pt will need to continue with out pt HD as well. Pt then dropped hgb and Gi saw the pt and pt is going for colosncopy today. Pt is very motivated and wants to go to rehab. We are waiting for the rehab to set up, then pt will be dsicharged. Pt will go home with right sided tunnel catheter and HD as out pt too. Pt had been afebrile, WBC stable and no further drop in Hgb. Time: 35min Discharge discussed with: patient - Time Spent with Patient Total time spent providing and/or coordinating discharge services: Time spent: Greater than 30 minutes - Discharge Medications Prescriptions: No Action Ascorbate Calcium [Vitamin C] 500 mg PO DAILY predniSONE [PredniSONE] See Taper PO AD Soft Lens Saline Solution 0.9% 1 appl TP QSHIFT Zinc Sulfate 220 mg PO DAILY Ranitidine Oral Soln [Zantac] 10 ml PO BID Potassium Chloride [K-Tab ER] 20 meq PO DAILY Metformin HCl 500 mg PO BID Lisinopril [Zestril] 5 mg PO DAILY Ipratropium/Albuterol Sulfate [Iprat-Albut 0.5-3(2.5) mg/3 ml] 3 ml IH Q6HR Ferrous Sulfate Oral Soln 6.8 ml PO DAILY Enoxaparin [Lovenox] 40 mg SQ DAILY clonazePAM [Clonazepam] 1 mg PO BID Citalopram Hydrobromide [Celexa] 20 mg PO DAILY Carvedilol 3.125 mg PO BID Budesonide [Pulmicort] 4 ml IH QSHIFT Arformoterol Tartrate [Brovana] 15 mcg IH QSHIFT Acetaminophen 650 mg PO Q6HR PRN PRN Reason: Fever amLODIPine [Norvasc] 5 mg PO DAILY Insulin LISPRO [Admelog Solostar] 2 - 10 unit SQ Q6H Home Medications: Acetaminophen 650 mg PO Q6HR PRN 06/21/18 [History] Arformoterol Tartrate [Brovana] 15 mcg IH QSHIFT 06/21/18 [History] Ascorbate Calcium [Vitamin C] 500 mg PO DAILY 06/21/18 [History] Budesonide [Pulmicort] 4 ml IH QSHIFT 06/21/18 [History] Carvedilol 3.125 mg PO BID 06/21/18 [History] Citalopram Hydrobromide [Celexa] 20 mg PO DAILY 06/21/18 [History] Enoxaparin [Lovenox] 40 mg SQ DAILY 06/21/18 [History] Ferrous Sulfate Oral Soln 6.8 ml PO DAILY 06/21/18 [History] Insulin LISPRO [Admelog Solostar] 2 - 10 unit SQ Q6H 06/21/18 [History] Ipratropium/Albuterol Sulfate [Iprat-Albut 0.5-3(2.5) mg/3 ml] 3 ml IH Q6HR 06/21/18 [History] Lisinopril [Zestril] 5 mg PO DAILY 06/21/18 [History] Metformin HCl 500 mg PO BID 06/21/18 [History] Potassium Chloride [K-Tab ER] 20 meq PO DAILY 06/21/18 [History] Ranitidine Oral Soln [Zantac] 10 ml PO BID 06/21/18 [History] Soft Lens Saline Solution 0.9% 1 appl TP QSHIFT 06/21/18 [History] Zinc Sulfate 220 mg PO DAILY 06/21/18 [History] amLODIPine [Norvasc] 5 mg PO DAILY 06/21/18 [History] clonazePAM [Clonazepam] 1 mg PO BID 06/21/18 [History] predniSONE [PredniSONE] See Taper PO AD 06/21/18 [History] Allergies/Adverse Reactions: Allergy/AdvReac Type Severity Reaction Status Date / Time No Known Allergies Allergy Verified 06/21/18 07:48 Date of admission: 06/21/18 11:48 Primary care physician: Zachery Regalado MD Consults: 06/23/18 07:34 Consult to Surgery [CONS] Routine Consulting Provider: [facility] Reason for Consult: PEG tube placement Time Notified: 07:36 Call Completed: No 06/24/18 07:37 Consult to Nephrology [CONS] Routine Consulting Provider: Maryellen Lino/KAUSHIK Reason for Consult: LUNA, likely ATN from septic shock. Rising Cr with oliguria Call Completed: Yes 06/27/18 16:12 Consult to Fire Prevention Engineer [CONS] Routine Reason for SW Consult: ?LTAC placement 07/03/18 15:53 Consult to Nephrology [CONS] Routine Consulting Provider: Maryellen Lino/KAUSHIK Reason for Consult: Hyperkalemia Call Completed: Yes 07/05/18 11:07 Consult to Interventional Radiology [CONS] Routine Consulting Provider: Radiology Interventional Cols Reason for Consult: patient needs a temp HD catheter Call Completed: No 07/05/18 11:45 Consult to Dialysis [CONS] ONCE 07/06/18 07:45 Consult to Dialysis [CONS] ONCE 07/08/18 08:07 Consult to Interventional Radiology [CONS] Stat Consulting Provider: Radiology Interventional Cols Reason for Consult: Remove temp line insert tunnel line for hemodialysis Time Notified: 08:10 Call Completed: Yes 07/08/18 09:45 Consult to Dialysis [CONS] ONCE 07/09/18 08:45 Consult to Dialysis [CONS] ONCE 07/09/18 09:44 Consult to Gastroenterology [CONS] Routine Consulting Provider: Luis Enrique Lino Reason for Consult: need for endoscopy Call Completed: Yes 07/10/18 11:30 Consult to Dialysis [CONS] ONCE 07/12/18 07:45 Consult to Dialysis [CONS] ONCE 07/12/18 17:00 Consult to Fire Prevention Engineer [CONS] Routine Reason for SW Consult: Please arrange for an outpt HD chair for dialysis- dependent LUNA. Already has a Permacath. Thank you. 07/15/18 08:15 Consult to Dialysis [CONS] QMWF 07/17/18 08:15 Consult to Dialysis [CONS] QMWF 07/19/18 08:15 Consult to Dialysis [CONS] QMWF - Constitutional Vitals: Temp Pulse Resp BP Pulse Ox 97.8 F 95 19 131/79 90 07/17/18 11:39 07/17/18 11:39 07/17/18 11:39 07/17/18 11:39 07/17/18 11:39 Exam: Gen: sittig in chair feeling well heart: S1, S2, RRR Lugns: very poor airentry, has trach LE: 2+ pittin gedema Abd: soft, NT?ND - Patient Status Disposition: Transfer Inpatient Rehab Fac - Discharge Instructions Follow Up With: Zachery Regalado MD [Primary Care Provider] -
--- NOTE | 2018-07-17 15:03 | Physician Discharge Referral ---
ExtendedCare Referral Info Transfer To: [facility] - Diagnosis (1) Acute on chronic respiratory failure with hypoxia and hypercapnia Status: Acute - Transfer Medications Home Medications: Acetaminophen 650 mg PO Q6HR PRN 06/21/18 [History] Arformoterol Tartrate [Brovana] 15 mcg IH QSHIFT 06/21/18 [History] Ascorbate Calcium [Vitamin C] 500 mg PO DAILY 06/21/18 [History] Budesonide [Pulmicort] 4 ml IH QSHIFT 06/21/18 [History] Carvedilol 3.125 mg PO BID 06/21/18 [History] Citalopram Hydrobromide [Celexa] 20 mg PO DAILY 06/21/18 [History] Ferrous Sulfate Oral Soln 6.8 ml PO DAILY 06/21/18 [History] Insulin LISPRO [Admelog Solostar] 2 - 10 unit SQ Q6H 06/21/18 [History] Ipratropium/Albuterol Sulfate [Iprat-Albut 0.5-3(2.5) mg/3 ml] 3 ml IH Q6HR 06/21/18 [History] Potassium Chloride [K-Tab ER] 20 meq PO DAILY 06/21/18 [History] Ranitidine Oral Soln [Zantac] 10 ml PO BID 06/21/18 [History] Soft Lens Saline Solution 0.9% 1 appl TP QSHIFT 06/21/18 [History] Zinc Sulfate 220 mg PO DAILY 06/21/18 [History] amLODIPine [Norvasc] 5 mg PO DAILY 06/21/18 [History] clonazePAM [Clonazepam] 1 mg PO BID 06/21/18 [History] predniSONE [PredniSONE] See Taper PO AD 06/21/18 [History] Allergies/Adverse Reactions: Allergy/AdvReac Type Severity Reaction Status Date / Time No Known Allergies Allergy Verified 06/21/18 07:48 - Respiratory Orders Smoking Cessation: Smoking cessation has been advised. For more information, call the [place] [employer] Quit Line at 0-030-SLQG-NOW. CERTIFICATION: I certify that the transfer of the above named patient to an Extended Care Facility is necessary for the continuing treatment of the diagnosis listed. The above information is true and accurate reflection of patient's current condition. Confidential - Redisclosure prohibited without a patient's written consent.
[2018-07-17] MEDS ORDERED: predniSONE 20 MG TABLET PO SCH (17:45)
[2018-07-17] MEDS: *HR* HYDROcodone/Acet 5/325 mg TABLET PO PRN (22:46)
[2018-07-18] MEDS: Ipratropium/Albuterol Neb 3 ML IH SCH ×5 (00:20→16:10)
[2018-07-18] MEDS: Artificial Tears SOLN 15 ML BOTTLE BOTH EYES SCH ×4 (00:22→12:22)
[2018-07-18 06:20] LABS: Mean Corpuscular Hemoglobin 28.7 pg (28.0-33.3); Mean Corpuscular Volume 95.5 fL (83.0-100.0); Mean Platelet Volume 10.2 fL (9.4-12.4); Platelet Count 212 K/mcL (140-400); Red Blood Count 3.14 M/mcL (4.19-5.50); Red Cell Distribution Width 15.1 % (11.5-14.5)
[2018-07-18 06:37] LABS: Calcium 9.1 mg/dL (8.6-10.3); Potassium 5.1 mEq/L (3.5-5.1)
[2018-07-18] MEDS ORDERED: D5% in Water 1,000 ML IVC PRN (07:06)
[2018-07-18] MEDS ORDERED: *HR* Heparin 10,000 UNIT/10 ML VIAL IV PRN (07:06)
[2018-07-18] MEDS ORDERED: Naloxone 0.4 MG/ML INJ IVP PRN (07:06)
[2018-07-18] MEDS ORDERED: Mag Hydrox/Al Hydrox/Simeth 30 ML UDC PO PRN (07:06)
[2018-07-18] MEDS ORDERED: Dextrose Gel 15 GM/37.5 ML TUBE PO PRN ×2 (07:06)
[2018-07-18] MEDS ORDERED: *HR* HYDROcodone/Acet 5/325 mg TABLET PO PRN (07:06)
[2018-07-18] MEDS ORDERED: *HR* Dextrose 50 % in Water (Syg) 50 ML SYRINGE IVP PRN (07:06)
[2018-07-18] MEDS ORDERED: Saline Nasal Spray 44 ML BOTTLE NS PRN (07:06)
[2018-07-18] MEDS ORDERED: Ipratropium/Albuterol Neb 3 ML ONE (07:21)
[2018-07-18] MEDS ORDERED: Budesonide Neb 0.5 MG/2 ML IH ONE (07:21)
[2018-07-18] MEDS ORDERED: Insulin LISPRO 300 UNITS/3 ML VIAL SQ SCH ×2 (07:30→21:00)
[2018-07-18] MEDS: Insulin LISPRO 300 UNITS/3 ML VIAL SQ SCH ×4 (08:21→12:10)
[2018-07-18] MEDS ORDERED: Budesonide Neb 0.5 MG/2 ML IH SCH (09:00)
[2018-07-18] MEDS ORDERED: predniSONE 10 MG TABLET PO SCH (09:00)
[2018-07-18] MEDS ORDERED: Insulin DETEMIR 100 UNIT/ML X5UNITS SQ SCH (09:00)
[2018-07-18] MEDS ORDERED: Chlorhexidine Rinse 15 ML MOUTHWASH MM SCH (09:00)
[2018-07-18] MEDS ORDERED: clonazePAM 1 MG TABLET PO SCH (09:00)
--- NOTE | 2018-07-18 10:07 | IR Progress Note ---
Vital Signs: Vital Signs/O2 Sat, Most Current Temp Pulse Resp BP Pulse Ox 97.4 F L 80 18 155/85 88 07/18/18 07:51 07/18/18 07:51 07/18/18 07:51 07/18/18 07:51 07/18/18 07:51 Recent Labs: Lab Results 07/18/18 07/18/18 07/17/18 05:51 05:51 05:01 WBC 10.6 RBC 3.14 L Hgb 9.0 L Hct 30.0 L MCV 95.5 MCH 28.7 MCHC 30.0 L RDW 15.1 H Plt Count 212 MPV 10.2 Sodium 138 141 Potassium 5.1 4.2 Chloride 101 102 Carbon Dioxide 26 29 BUN 45 H 38 H Creatinine 2.21 H 1.93 H Est GFR ( Amer) 36 L 43 L Est GFR (Non-Af Amer) 30 L 35 L BUN/Creatinine Ratio 20 20 Glucose 261 H 86 Calcium 9.1 9.2 07/17/18 07/16/18 07/16/18 05:01 01:32 01:32 WBC 11.1 15.4 H RBC 2.94 L 3.27 L Hgb 8.3 L 9.2 L Hct 27.1 L 29.7 L MCV 92.2 90.8 MCH 28.2 28.1 MCHC 30.6 L 31.0 L RDW 15.1 H 15.1 H Plt Count 183 172 MPV 10.2 9.8 Sodium 136 Potassium 4.4 Chloride 100 Carbon Dioxide 31 H BUN 27 H Creatinine 1.42 H Est GFR ( Amer) > 60 Est GFR (Non-Af Amer) 50 L BUN/Creatinine Ratio 19 Glucose 96 Calcium 9.2 Assessment and Plan Pt s/p hdc placement on 07-10 for renal failure. Recommend leaving hdc in place since it it not infected and just recently placed.
[2018-07-18 11:16] VITALS: BP 167/95
--- NOTE | 2018-07-18 15:36 | Event Note ---
Date of Encounter: 07/18/18 Time of Encounter: 15:34 - Nephrology Event Note Nephrology chart update The patient's renal function is returning to his prior LUNA baseline with a creatinine near 2-2.2. I recommend checking a basic metabolic panel at least weekly while he is at the rehabilitation unit. He should have close nephrology follow-up in the clinic in approximately 2-3 weeks. He will need outpatient removal of the permacath. Discussed with the floor RN. Okay to discharge from a nephrology perspective.
== END 2018-07-18 17:30 | DRG 870 ==
LOC: SUATTDRO 11:48 → ICNU 11:48 → 2NNU 06-23 19:14 → 2ANU 07-18 06:57
PROVIDERS: ADMIT Internal Medicine Hospice and Palliative Medicine; ATTEND Internal Medicine
PROC: IRPERMA (2018-07-08 12:00)